=== PATIENT | female | born 1955 | race African-American/Black ===

== ENCOUNTER 2017-05-06 14:39 | Inpatient (IN) | payer OTHER, MEDICAID, MEDICARE ==
--- NOTE | 2017-05-06 14:48 | ED Physician Chart ---
Chief Complaint/HPI - Patient Information Date Seen:: 05/06/17 Time Seen:: 14:45 Chief Complaint:: PAIN UNDER THE LEFT BREAST SINCE THIS AM History of Present Illness:: The patient is a poor historian. [facility] personnel who accompanied her stated that she began complaining of pain under her left breast this a.m. The pain is nonradiating and is worse with inspiration and cough.. No relieving factors. The patient is unable to score the severity of her pain from 0-10. She denies any difficulty breathing, nausea, vomiting, fever or chills. The patient also complained of upper abdominal pain. Paper work with the patient notes she has HTN, FAILURE TO THRIVE and SCHIZOPHRENIA. Allergies:: Allergies Allergy/AdvReac Type Severity Reaction Status Date / Time clozapine [From Clozaril] AdvReac Verified 05/06/17 14:42 haloperidol [From Haldol] AdvReac Verified 05/06/17 14:42 Review:: Nurse's Note Reviewed, Transfer documents Reviewed Review of Systems - Review of Systems General/Constitutional: No fever, No chills, Weakness, Other (THE PT IS AN UNRELIABLE SOURCE OF INFORMATION.) Cardio Vascular: Chest pain Pulmonary: No SOB GI: No nausea, No vomiting, No diarrhea, Pain Past Medical History - Past Medical History Past Medical History: HTN, Dementia Social History: Care Facility Family Medical History - Family Member Mother Hx Family Diabetes: Yes Physical Exam - Physical Examination General/Constitutional: Awake Other Gen/Cons comments:: OBESE AND NON-AMBULATORY. PT IS COMPLAINING OF PAIN IN THE AREA UNDER HER LT BREAST. PT UNABLE TO RATE SEVERITY OF PAIN. DENIED RADIATION. Head: Atraumatic Eyes: Lids, conjuctiva normal, PERRL Other Eyes comments:: UNCOOPERATIVE WITH THE EOM exam. Skin: No rash, No skin lesions, No lymphadenopathy (LARGE TONGUE. DRY ORAL MUCOSA. POOR DENTAL HYGIENE.) Neck: No JVD, No mass Other Neck comments:: THICK NECK. STIFF NECK. Other Respiratory comments:: PT WITH SCATTERED RONCHI AND WHEEZING. NO RALES. Other Cardio Vascular comments:: HEART TONES WERE DISTANT. HAS TACHYCARDIA IN THE 110 RANGE. NO MURMURS OR GALLOPS. Other GI comments:: THE ABDOMEN IS MODERATELY DISTENDED. BOWEL SOUNDS ARE PRESENT. SOFT AND WITHOUT TENDERNESS. NO PALPABLE MASSES, LIVER OR SPLEEN. RECTAL EXAM WAS DEFERRED AT MY DISCRETION. : No CVA tenderness Other Extremities comments:: PT WITH WEAK GRASPS IN BOTH UPPER EXTREMITIES. ABLE TO MOVE BOTH LEGS. MILD PRE-TIBIAL EDEMA. Other Neuro/Psych comments:: PT IS DISORIENTED AND POOR HISTORIAN. CONFUSED. Labs/Radiology/EKG Results - Lab Results Results: Single view PA portable chest x-ray: Borderline cardiomegaly. No CHF. No areas of pulmonary consolidation. No mediastinal widening. calcifications in the aortic arch. No pneumothorax. IMPRESSION: No acute cardiopulmonary findings. Laboratory Tests 05/06/17 05/06/17 05/06/17 14:40 14:40 14:40 WBC 10.1 RBC 3.64 L Hgb 11.4 L Hct 34.4 L MCV 94.5 MCH 31.2 H MCHC Differential 33.0 RDW 12.5 Plt Count 217 MPV 8.0 Neutrophils % 79.8 Lymphocytes % 10.0 L Monocytes % 8.5 Eosinophils % 1.4 Basophils % 0.3 Sodium 129 L Potassium 3.9 Chloride 99 Carbon Dioxide 25.2 Anion Gap 8.7 BUN 15 Creatinine 0.7 Est GFR ( Amer) > 60.0 Est GFR (Non-Af Amer) > 60.0 BUN/Creatinine Ratio 21.4 Glucose 107 H Calcium 9.6 Total Bilirubin 0.8 AST 22 ALT 28 Alkaline Phosphatase 74 Troponin I 0.01 Total Protein 7.0 Albumin 4.0 Globulin 3.0 Albumin/Globulin Ratio 1.3 Amylase 20 L Lipase 6 L The CBC shows no leukocytosis and a mild anemia. Chemistries show mild hyponatremia with a normal potassium level. Lipase and amylase are both within normal parameters. The troponin is within the normal range. Liver function studies are all within normal limits. Renal function is normal. CT SCAN OF THE ABDOMEN WAS OBTAINED BECAUSE ONE OF THE EMT'S SAID THE PATIENT WAS HAVING ABD PAIN. THE SCAN SHOWED COPIOUS STOOLS. MILD ILEUS. THERE WAS A TUBULAR STRUCTURE IN THE RLQ. THE APPENDIX WAS NOT VISUALIZED. - EKG Interpretations EKG Time:: 14:53 Rate & Rhythm: sinus tachycardia at rate of 105. No ectopy. [place]: axis is normal Intervals: the DC interval was normal. QRS duration normal. QT interval normal. Comments:: IMPRESSION: Abnormal EKG. Assessment - Assessment General Assessment: CASE SUMMARY: This 61 year old female was sent from [facility] for evaluation of failure to thrive and and pain in the region of the left breast. The EKG showed a Q-wave in aVF and minimal ST elevation in the inferior leads. The CXR showed boarder line cardiomegaly with no CHF and no areas of pulmonary consolidation. The CT scan of the abdomen and pelvis showed copious stools. Lab studies were unremarkable. On return from the CT scanner the pt began retching and vomiting. This was addressed with IV zofran. Her chest pain was addressed with po ASA, and sub lingual NTG. When there was no improvment with NTG, the pt was treated with IV Morphine which helped with the pain but seemed to worsen the patients vomiting. The case was discussed with Dr. Blackman and will be admitted to a [facility] bed for further evaluation and Treatment MDM DDX for Acute CHEST PAIN: NOT Pneumonia based on CXR. NOT pneumothorax based on CXR. NOT Aortic disection based on history and exam and no mediastinal widening. ED Septic Shock - . Is Septic Shock (SBP<90, OR Lactate>4 mmol\L) present?: No Reassessment (Disposition) - Reassessment Reassessment Condition:: Improved - Diagnosis Diagnosis:: ACUTE CHEST PAIN - Patient Disposition Discharge/Transfer:: Acute Care w/in this hosp ED Discharge Plan - Patient Disposition Admit/Discharge/Transfer: Acute Care w/in this hosp Condition at Disposition: Improved
[2017-05-06 15:23] LABS: % BASOPHILS 0.3 % (0.0-2.0); % EOSINOPHILS 1.4 % (0.0-5.0); % MONOCYTES 8.5 % (2.0-10.0); % NEUTROPHILS 79.8 % (40.0-80.0); HEMATOCRIT 34.4 % (35.0-45.0); HEMOGLOBIN 11.4 gm/dL (11.7-15.5); MEAN CELL VOLUME 94.5 fl (81-100); MEAN CORPUSCULAR HEMOGLOBIN 31.2 pg (27.0-31.0); NEUTROPHILE ABSOLUTE 8.1 Th/cmm (1.8-8.0); PLATELET COUNT 217 Th/cmm (150-400); RED BLOOD COUNT 3.64 Mil/cmm (3.80-5.10); RED CELL DISTRIBUTION WIDTH 12.5 % (11.5-20.0); WHITE BLOOD COUNT 10.1 Th/cmm (4.8-10.8)
[2017-05-06 15:38] LABS: ALB/GLOB RATIO 1.3 (1.0-1.8); ALKALINE PHOSPHATASE 74 U/L (34-104); AMYLASE SERUM 20 U/L (29-103); ANION GAP 8.7 (7.0-16.0); BILIRUBIN,TOTAL 0.8 mg/dL (0.3-1.0); BUN - UREA NITROGEN 15 mg/dL (7-25); BUN/CREATININE RATIO 21.4; CALCIUM SERUM 9.6 mg/dL (8.6-10.3); CARBON DIOXIDE 25.2 mEq/L (21.0-31.0); CHLORIDE 99 mEq/L (98-107); CREATININE - SERUM 0.7 mg/dL (0.6-1.2); GLUCOSE 107 mg/dL (70-105); LIPASE 6 U/L (11-82); POTASSIUM SERUM 3.9 mEq/L (3.5-5.1); SGOT 22 U/L (13-39); SGPT/ALT 28 U/L (7-52); SODIUM SERUM 129 mEq/L (136-145)
[2017-05-06] MEDS ORDERED: Aspirin 81mg Chewable Tab PO ONE (16:08)
[2017-05-06] MEDS ORDERED: Aspirin 81mg Chewable Tab ONE (16:14)
[2017-05-06 17:10] LABS: URINE BILIRUBIN NEGATIVE (NEGATIVE); URINE BLOOD NEGATIVE (NEGATIVE); URINE COLOR YELLOW; URINE GLUCOSE (UA) NEGATIVE (NEGATIVE); URINE KETONE TRACE mg/dL (NEGATIVE); URINE PROTEIN NEGATIVE (NEGATIVE); URINE UROBILINOGEN 0.2 E.U./dL (0.2 - 1.0)
[2017-05-06 17:11] LABS: URINE BACTERIA OCCASIONAL /hpf (NONE SEEN); URINE EPITHELIAL CELLS RARE /lpf (FEW); URINE RBC NONE SEEN /hpf (0-5); URINE WBC 0-2 /hpf (0-5)
[2017-05-06] MEDS ORDERED: Morphine Sulfate 4 mg/mL 1mL Syr IVP ONE (17:43)
[2017-05-06] MEDS ORDERED: Maalox 30 mL Cup PO PRN (18:36)
[2017-05-06] MEDS ORDERED: guaiFENesin 200 MG/10 ML UDC PO PRN (18:36)
[2017-05-06] MEDS ORDERED: Morphine Sulfate 2 mg/mL 1mL Syr IVP PRN (18:36)
[2017-05-06] MEDS: D5-0.9%NS 1,000 ML IV SCH (22:04)
[2017-05-06 23:02] LABS: TROP I 0.01 ng/mL (0.01-0.05)
[2017-05-07 02:10] VITALS: BP 121/71
[2017-05-07 06:03] LABS: % EOSINOPHILS 1.6 % (0.0-5.0); % LYMPHOCYTES 14.5 % (20.0-50.0); % MONOCYTES 9.5 % (2.0-10.0); % NEUTROPHILS 74.4 % (40.0-80.0); HEMOGLOBIN 10.6 gm/dL (11.7-15.5); MEAN CORPUSCULAR HEMOGLOBIN 32.2 pg (27.0-31.0); MEAN CORPUSCULAR HGB CONC 34.2 pg (28.0-36.0); MEAN PLATELET VOLUME 7.5 fl; NEUTROPHILE ABSOLUTE 6.1 Th/cmm (1.8-8.0); PLATELET COUNT 209 Th/cmm (150-400); RED CELL DISTRIBUTION WIDTH 12.3 % (11.5-20.0); WHITE BLOOD COUNT 8.2 Th/cmm (4.8-10.8)
[2017-05-07 06:21] LABS: ALB/GLOB RATIO 1.3 (1.0-1.8); ALKALINE PHOSPHATASE 63 U/L (34-104); BILIRUBIN,TOTAL 0.7 mg/dL (0.3-1.0); BUN - UREA NITROGEN 13 mg/dL (7-25); BUN/CREATININE RATIO 18.6; CARBON DIOXIDE 26.8 mEq/L (21.0-31.0); CHLORIDE 105 mEq/L (98-107); CREATININE - SERUM 0.7 mg/dL (0.6-1.2); GLUCOSE 80 mg/dL (70-105); POTASSIUM SERUM 3.8 mEq/L (3.5-5.1); SGOT 20 U/L (13-39); SGPT/ALT 25 U/L (7-52); SODIUM SERUM 134 mEq/L (136-145)
[2017-05-07 06:54] LABS: TSH 1.24 uIU/ml (0.34-5.60)
[2017-05-07] MEDS: Albuterol Nebulizer 2.5mg/3mL HHN PRN (07:53)
[2017-05-07] MEDS: Ipratropium Neb 0.5 mg/2.5 mL UD IH PRN (07:53)
[2017-05-07] MEDS: Pantoprazole 40 mg EC Tab PO SCH ×2 (09:32→16:44)
--- NOTE | 2017-05-07 10:50 | Diagnostic Imaging Report ---
CHEST X-RAY: AP view INDICATION: Pain under the left breast COMPARISON: None FINDINGS: Chronic changes are seen with no focal consolidation or effusions. Heart size is at the upper limits of normal. Degenerative changes of the spine are noted. IMPRESSION: Chronic lung changes with no focal consolidation identified. No evidence of pneumothorax.
--- NOTE | 2017-05-07 10:51 | Diagnostic Imaging Report ---
CHEST X-RAY: AP view INDICATION: Chest pain COMPARISON: 05/06/2017 FINDINGS: Mild increased interstitial lung markings are seen suggestive of chronic changes. No focal consolidation pleural effusions. Heart is at the upper limits of normal in size. Osseous structures are intact. IMPRESSION: Mild increased interstitial lung markings suggestive of chronic changes. No focal consolidation identified. Heart is upper limits of normal in size.
--- NOTE | 2017-05-07 11:01 | Diagnostic Imaging Report ---
CT abdomen and pelvis without intravenous contrast Indication: Pain under left breast Comparison: None, Technique: Axial images were obtained from the lung bases to the bilateral proximal femurs without IV contrast. Coronal reconstructions were made. total DLP: 690, CTDI15.9 FINDINGS: Hypoventilatory atelectatic changes of the lung bases are noted. No focal abnormality seen along the visualized left abdominal wall. Assessment of the solid organs is limited due to lack of IV contrast. Mildly prominent liver is noted. No evidence of focal hepatic, splenic, or pancreatic lesions. No focal acute lesions. No evidence of hydronephrosis or focal renal lesions. Minimal nonspecific bilateral perinephric inflammatory changes are noted. Copious amount of stool is seen and gas-filled loops of bowel. There is a tubular structure of the right lower quadrant which probably represents the terminal ileum. The appendix is not well-visualized. No evidence of free fluid or free air. Minimal atherosclerosis is noted. The osseous structures demonstrate no acute abnormalities. Degenerative changes spine are noted. There is 2 mm anterolisthesis of L4 on L5 likely due to facet arthropathy. IMPRESSION: No focal abnormalities visualized along the left anterior abdominal wall. Please correlate clinically given patient's clinical history. Tubular structure of the right lower quadrant probably representing the terminal ileum. The Appendix is not well-visualized. Please correlate with clinical findings. If there is concern for appendicitis short-term follow up CT with IV and oral contrast may be obtained for further assessment Copious stool and gas-filled loops of bowel possibly due to a mild ileus. Mildly prominent liver. 2 mm anterolisthesis of L4 on L5 likely due to facet arthropathy.
--- NOTE | 2017-05-07 13:10 | Internal Medicine Prog Note ---
Internal Medicine Subjective - Subjective Service Date: 05/07/17 ([id number]) Internal Medicine Objective - Results Result Diagrams: 05/07/17 05:30 05/07/17 05:30 Recent Labs: Laboratory Last Values WBC 8.2 Th/cmm (4.8-10.8) 05/07/17 05:30 RBC 3.30 Mil/cmm (3.80-5.10) L 05/07/17 05:30 Hgb 10.6 gm/dL (11.7-15.5) L 05/07/17 05:30 Hct 31.0 % (35.0-45.0) L 05/07/17 05:30 MCV 94.0 fl (81-100) 05/07/17 05:30 MCH 32.2 pg (27.0-31.0) H 05/07/17 05:30 MCHC Differential 34.2 pg (28.0-36.0) 05/07/17 05:30 RDW 12.3 % (11.5-20.0) 05/07/17 05:30 Plt Count 209 Th/cmm (150-400) 05/07/17 05:30 MPV 7.5 fl 05/07/17 05:30 Neutrophils % 74.4 % (40.0-80.0) 05/07/17 05:30 Lymphocytes % 14.5 % (20.0-50.0) L 05/07/17 05:30 Monocytes % 9.5 % (2.0-10.0) 05/07/17 05:30 Eosinophils % 1.6 % (0.0-5.0) 05/07/17 05:30 Basophils % 0.0 % (0.0-2.0) 05/07/17 05:30 Sodium 134 mEq/L (136-145) L 05/07/17 05:30 Potassium 3.8 mEq/L (3.5-5.1) 05/07/17 05:30 Chloride 105 mEq/L (98-107) 05/07/17 05:30 Carbon Dioxide 26.8 mEq/L (21.0-31.0) 05/07/17 05:30 Anion Gap 6.0 (7.0-16.0) L 05/07/17 05:30 BUN 13 mg/dL (7-25) 05/07/17 05:30 Creatinine 0.7 mg/dL (0.6-1.2) 05/07/17 05:30 Est GFR ( Amer) > 60.0 ml/min (>90) 05/07/17 05:30 Est GFR (Non-Af Amer) > 60.0 ml/min 05/07/17 05:30 BUN/Creatinine Ratio 18.6 05/07/17 05:30 Glucose 80 mg/dL (70-105) 05/07/17 05:30 Calcium 9.0 mg/dL (8.6-10.3) 05/07/17 05:30 Total Bilirubin 0.7 mg/dL (0.3-1.0) 05/07/17 05:30 AST 20 U/L (13-39) 05/07/17 05:30 ALT 25 U/L (7-52) 05/07/17 05:30 Alkaline Phosphatase 63 U/L (34-104) 05/07/17 05:30 Ammonia 55 umol/L (16-53) H 05/07/17 05:30 Troponin I 0.01 ng/mL (0.01-0.05) 05/06/17 22:35 B-Natriuretic Peptide 23.9 pg/mL (5.0-100.0) 05/07/17 05:30 Total Protein 6.1 gm/dL (6.0-8.3) 05/07/17 05:30 Albumin 3.4 gm/dL (3.7-5.3) L 05/07/17 05:30 Globulin 2.7 gm/dL 05/07/17 05:30 Albumin/Globulin Ratio 1.3 (1.0-1.8) 05/07/17 05:30 Amylase 20 U/L (29-103) L 05/06/17 14:40 Lipase 6 U/L (11-82) L 05/06/17 14:40 TSH 1.24 uIU/ml (0.34-5.60) 05/07/17 05:30 Urine Source RANDOM 05/06/17 16:20 Urine Color YELLOW 05/06/17 16:20 Urine Clarity CLEAR (CLEAR) 05/06/17 16:20 Urine pH 7.0 05/06/17 16:20 Ur Specific [place] 1.015 (1.005-1.030) 05/06/17 16:20 Urine Protein NEGATIVE mg/dL (NEGATIVE) 05/06/17 16:20 Urine Glucose (UA) NEGATIVE mg/dL (NEGATIVE) 05/06/17 16:20 Urine Ketones TRACE mg/dL (NEGATIVE) 05/06/17 16:20 Urine Blood NEGATIVE (NEGATIVE) 05/06/17 16:20 Urine Nitrate NEGATIVE (NEGATIVE) 05/06/17 16:20 Urine Bilirubin NEGATIVE (NEGATIVE) 05/06/17 16:20 Urine Urobilinogen 0.2 E.U./dL (0.2 - 1.0) 05/06/17 16:20 Ur Leukocyte Esterase NEGATIVE (NEGATIVE) 05/06/17 16:20 Urine RBC NONE SEEN /hpf (0-5) 05/06/17 16:20 Urine WBC 0-2 /hpf (0-5) 05/06/17 16:20 Ur Epithelial Cells RARE /lpf (FEW) 05/06/17 16:20 Urine Bacteria OCCASIONAL /hpf (NONE SEEN) 05/06/17 16:20 Urine Mucus FEW /lpf (FEW) 05/06/17 16:20 - Physical Exam Vitals and I&O: Vital Signs Temp 98 F 05/07/17 08:00 Pulse 96 05/07/17 09:33 Resp 19 05/07/17 08:00 BP 151/68 05/07/17 09:33 Pulse Ox 98 05/07/17 08:00 Intake & Output 05/06/17 05/07/17 05/07/17 18:59 06:59 18:59 Intake Total 240 Balance 240 Weight (lbs) 217 lb 217 lb Intake: Oral 240 Other: # Voids 2 Active Medications: Current Medications Acetaminophen (Tylenol) 650 mg PO Q4H PRN PRN Reason: Pain Or Fever above 101 Stop: 07/05/17 18:35 Al Hydrox/Mg Hydrox/Simethicone (Maalox) 30 ml PO Q6H PRN PRN Reason: Dyspepsia Stop: 07/05/17 18:35 Albuterol Sulfate (Albuterol 2.5mg/3ml Neb Ud) 2.5 mg HHN Q2HRT PRN PRN Reason: Shortness of Breath or Wheeze Stop: 07/05/17 18:35 Last Admin: 05/07/17 07:53 Dose: 2.5 mg Amlodipine Besylate (Norvasc) 5 mg PO DAILY [facility] Stop: 07/06/17 08:59 Last Admin: 05/07/17 09:32 Dose: 5 mg Aspirin (Ecotrin) 81 mg PO DAILY [facility] Stop: 07/06/17 08:59 Last Admin: 05/07/17 09:32 Dose: 81 mg Clonidine HCl (Catapres) 0.1 mg PO Q6H PRN PRN Reason: SBP GREATER THAN 160 Stop: 07/05/17 18:35 Guaifenesin (Robitussin) 200 mg PO Q4HR PRN PRN Reason: Cough or Congestion Stop: 07/05/17 18:35 Hydroxyzine Pamoate (Vistaril) 50 mg PO Q4H PRN PRN Reason: Anxiety Stop: 07/05/17 22:22 Last Admin: 05/07/17 03:51 Dose: 50 mg Dextrose/Sodium Chloride (D5-0.9%Ns) 1,000 mls @ 80 mls/hr IV .[id number] [facility] Stop: 07/05/17 18:44 Last Admin: 05/06/17 22:04 Dose: 80 mls/hr Ipratropium [place] (Atrovent Neb 0.5mg/2.5ml) 0.5 mg IH Q2HRT PRN PRN Reason: Shortness of Breath or Wheeze Stop: 07/05/17 18:35 Last Admin: 05/07/17 07:53 Dose: 0.5 mg Lorazepam (Ativan) 1 mg PO Q6HR PRN; Protocol PRN Reason: Agitation Stop: 07/06/17 07:55 Losartan Potassium (Cozaar) 100 mg PO DAILY [facility] Stop: 07/06/17 08:59 Last Admin: 05/07/17 09:33 Dose: 100 mg Morphine Sulfate (Morphine) 2 mg IVP Q4H PRN PRN Reason: Pain (Severe) Stop: 07/05/17 18:35 Ondansetron HCl (Zofran) 4 mg IV Q8H PRN PRN Reason: Nausea / Vomiting Stop: 07/05/17 18:35 Pantoprazole Sodium (Protonix) 40 mg PO BID [facility] Stop: 07/06/17 08:59 Last Admin: 05/07/17 09:32 Dose: 40 mg Quetiapine Fumarate (Seroquel) 300 mg PO HS [facility]II PRN Reason: Protocol Stop: 07/06/17 20:59 Quetiapine Fumarate (Seroquel) 50 mg PO DAILY [facility] PRN Reason: Protocol Stop: 07/06/17 08:59 Last Admin: 05/07/17 09:32 Dose: 50 mg Trazodone HCl (Desyrel) 50 mg PO HS MARII PRN Reason: Protocol Stop: 07/06/17 20:59 Zolpidem Tartrate (Ambien) 10 mg PO HS PRN PRN Reason: Insomnia Stop: 07/05/17 18:35 Internal Medicine Assmt/Plan - Assessment Assessment: ABDOMINAL PAIN CHEST PAIN GERD ASHTMA HTN HYPONATREMIA INTRACTABLE NAUSEA/VOMITING
--- NOTE | 2017-05-07 13:53 | History & Physical ---
ADMIT DATE: 05/07/2017 CHIEF COMPLAINT: Nausea, vomiting, abdominal pain and chest pain. HISTORY OF PRESENT ILLNESS: This is a 61-year-old -N[place]alese female with a 1-day history of nausea, vomiting, abdominal pain associated with chest pain. I saw this patient yesterday at [facility] and the patient was noted with intractable nausea and vomiting. For this reason, the patient was sent out to [facility]. PAST MEDICAL HISTORY: Hypertension, asthma and GERD. PAST SURGICAL HISTORY: Bilateral knee surgery. ALLERGIES: CLOZAPINE AND HALOPERIDOL. MEDICATIONS: Protonix, Norvasc, and Seroquel. SOCIAL HISTORY: The patient denies any alcohol, tobacco or illicit drug usage. REVIEW OF SYSTEMS: GENERAL: Complaints of abdominal pain. HEENT: No blurred vision. No neck pain. LUNGS: The patient had asthma. CARDIOVASCULAR: The patient has hypertension. ABDOMEN: Complaints of abdominal pain. GASTROINTESTINAL: Denies increase frequency or dysuria. NEUROLOGIC: No headaches, seizures, syncope. PHYSICAL EXAMINATION: GENERAL: The patient is awake, alert, in no apparent distress. VITAL SIGNS: Temperature 98, heart rate 96, blood pressure ____, respirations 19, O2 sat 98%. HEENT: Head; normocephalic, atraumatic. NECK: Supple. No mass. LUNGS: Clear bilaterally. HEART: Regular rhythm. ABDOMEN: Noted with distention. Nontender. LABORATORY DATA: WBC 8.2, H and H 10.6 and 31.0, platelet of 209. Sodium 134, potassium 3.8, chloride 105, carbon dioxide 26.8. Ammonia 55. The patient had a urinalysis done and it was negative for any UTI. The patient had a CT of the abdomen and pelvis done and the impression is no focal abnormalities visualized along the left anterior abdominal wall, tubular structure of right lower quadrant probably representing terminal ileum. Appendix is not well visualized. Please correlate with clinical findings. ASSESSMENT: Abdominal pain, intractable nausea, vomiting, chest pain, hypertension, asthma, and gastroesophageal reflux disease. PLAN: The patient to be admitted to the telemetry unit. The patient to have a GI consultation, also Dr. Bennett on the case. We will monitor patient's troponin level. We will continue to monitor this patient. JOB# [id number]
[2017-05-07] MEDS ORDERED: VTE Chemical Prophylaxis Screen/Admission MC PRN (15:00)
[2017-05-07] MEDS ORDERED: Magnesium Citrate 1.75 GM/300 mL Bottle PO ONE (15:17)
--- NOTE | 2017-05-07 22:54 | Consultation ---
DATE OF CONSULTATION: 05/07/2017 HISTORY OF PRESENT ILLNESS: A 61-year-old female coming in with the nursing personnel complaining of pain under the left breast. The patient is stating that she is coming from [facility]. She is demanding to leave the hospital. The patient is fairly well oriented feeling "okay." Staff noting she has been exhibiting some odd behaviors. Per staff, the patient has been intrusive, yelling, screaming, needing emergency orders of medications, ____ anxious, restless. PAST PSYCHIATRIC HISTORY: It seems she has history of schizophrenia. FAMILY HISTORY: Noncontributory. SOCIAL HISTORY: Unclear if she knows she has a place to live, but this has not been confirmed. The patient denies any noted drugs, alcohol or tobacco. MENTAL STATUS EXAMINATION: Stated age. Fair eye contact. Speech rambling. Mood "okay." Affect constricted. Thought processes are fragmented, no SI, no HI. She seems to be paranoid and suspicious, poor insight, poor judgment. PROVISIONAL DIAGNOSIS: Schizophrenia, anxiety, unspecified. MEDICAL: Please see full H and P. PLAN: We will continue to monitor, adjust medications, start p.r.n. Ativan. Continue to adjust Seroquel dosing. [facility]# [id number]
[2017-05-08 05:55] LABS: % BASOPHILS 0.5 % (0.0-2.0); % EOSINOPHILS 4.9 % (0.0-5.0); % MONOCYTES 10.1 % (2.0-10.0); % NEUTROPHILS 57.5 % (40.0-80.0); HEMATOCRIT 30.8 % (35.0-45.0); HEMOGLOBIN 10.6 gm/dL (11.7-15.5); MEAN CELL VOLUME 94.3 fl (81-100); MEAN CORPUSCULAR HEMOGLOBIN 32.5 pg (27.0-31.0); MEAN CORPUSCULAR HGB CONC 34.4 pg (28.0-36.0); NEUTROPHILE ABSOLUTE 3.4 Th/cmm (1.8-8.0); PLATELET COUNT 203 Th/cmm (150-400); RED BLOOD COUNT 3.26 Mil/cmm (3.80-5.10); RED CELL DISTRIBUTION WIDTH 12.9 % (11.5-20.0)
[2017-05-08 06:05] LABS: INR 1.06 (0.5-1.4); WHITE BLOOD COUNT 5.9 Th/cmm (4.8-10.8)
[2017-05-08 06:11] LABS: ALB/GLOB RATIO 1.2 (1.0-1.8); ALKALINE PHOSPHATASE 58 U/L (34-104); ANION GAP 5.9 (7.0-16.0); BILIRUBIN,TOTAL 0.6 mg/dL (0.3-1.0); BUN - UREA NITROGEN 13 mg/dL (7-25); BUN/CREATININE RATIO 18.6; CALCIUM SERUM 8.8 mg/dL (8.6-10.3); CARBON DIOXIDE 30.9 mEq/L (21.0-31.0); CHLORIDE 104 mEq/L (98-107); CREATININE - SERUM 0.7 mg/dL (0.6-1.2); GLUCOSE 83 mg/dL (70-105); LIPASE 14 U/L (11-82); POTASSIUM SERUM 3.8 mEq/L (3.5-5.1); SGOT 16 U/L (13-39); SGPT/ALT 23 U/L (7-52); SODIUM SERUM 137 mEq/L (136-145)
--- NOTE | 2017-05-08 06:19 | Consultation ---
DATE OF CONSULTATION: 05/07/2017 HISTORY OF PRESENT ILLNESS: This 61-year-old was seen and examined. The patient was admitted through Emergency Room. She was transferred here from the [facility]. She complained of left lower chest pains. The patient is not a very good historian. She has history of hypertension and psych problems. She was evaluated in the Emergency Room. EKG was done, which showed sinus rhythm, possible Q waves in 3 and aVF with ____ possibility of old inferior wall injury. LABORATORY DATA: First troponin was done ____ normal so far. TSH was 1.24. Ammonia level was 55. BNP was 3.9. WBC count was 8.2, hemoglobin 10.6, hematocrit 31, platelet count was 209. Sodium 134, potassium 3.8, chloride 105, CO2 26.8, BUN 13, creatinine 0.7, glucose was 80. Liver function test unremarkable. Chest x-ray report ____ was not available to me. PAST MEDICAL HISTORY: Usual childhood diseases. No history of rheumatic fever or scarlet fever. SOCIAL HISTORY: The patient is not a smoker and not a drinker. REVIEW OF SYSTEMS: Not much available from the patient. PHYSICAL EXAMINATION: VITAL SIGNS: Heart rate was 80. Blood pressure was 142/70. SKIN: Normal. HEAD: Normocephalic. EYES: Conjunctivae were pink. There is no icterus in the eyes. Pupils reacting to light. NECK: There was no increased jugular venous distention, no thyromegaly, no lymphadenopathy. Carotids equal on both sides. CHEST: Bilaterally symmetrical and moved well with respirations. Respiratory movements equal both sides. Trachea is central. There is note to percussion. Breath sounds, few scattered rales. CARDIOVASCULAR SYSTEM: PMI not well localized and no positional thrill. No parasternal heave. S1 normal, S2 physiologic. There was no S3, no rub. ABDOMEN: Soft, no tenderness, no rigidity, no guarding and no organomegaly. Bowel sounds normal. CENTRAL NERVOUS SYSTEM: Grossly nonfocal. Reflexes normal. Plantars are ____. EXTREMITIES: No calf tenderness. Peripheral pulses slightly diminished. IMPRESSION: Chest pains, rule out myocardial infarction, possibility of atherosclerotic heart disease with the EKG showing possibility of old inferior wall injury, hypertension, psych problems. PLAN: To continue cardiac monitoring to get serial EKG, serial enzymes, echocardiogram in order to evaluate left ventricular function and valvular structure and also to get lipid profile. In the meantime, add baby aspirin 81 mg, Coreg 3.125 b.i.d., and Lipitor and antihypertensive medication that she is getting losartan. Further recommendation will be made depending on the results of the tests available and Dr. Obed Banuelos will be following the patient now. JOB# [id number]
[2017-05-08 06:39] LABS: CHOLESTEROL 131 mg/dL (<200); TRIGLYCERIDES 58 mg/dL (<150)
[2017-05-08] MEDS: Ipratropium Neb 0.5 mg/2.5 mL UD IH PRN ×2 (07:14→21:00)
[2017-05-08] MEDS: Albuterol Nebulizer 2.5mg/3mL HHN PRN ×2 (07:14→21:00)
--- NOTE | 2017-05-08 07:40 | Consultation ---
DATE OF CONSULTATION: 05/07/2017 REASON FOR CONSULTATION: Abdominal pain, vomiting. HISTORY OF PRESENT ILLNESS: This consult was obtained through the courtesy of Dr. Blackman for this 61-year-old with a history of hypertension, possible psych problem versus early dementia, presenting from a prison because of abdominal pain, persistent nausea and vomiting. The patient was evaluated in the hospital, had a CAT scan which showed copious amount of stool and fluid in the colon. GI consult was called in for further evaluation. The patient lost weight gradually, but she cannot remember how much. She has nausea and vomiting. No bleeding, no diarrhea or constipation. She has abdominal pain, mostly on the left side. PAST MEDICAL HISTORY: Hypertension, dementia, psych problem. PAST SURGICAL HISTORY: She has had knee replacement on the left side. She had oophorectomy, she had hysterectomy. SOCIAL HISTORY: Denies smoking, alcohol, or drugs. FAMILY HISTORY: Mother had colon cancer and her last colonoscopy was about 5 years ago. ALLERGIES: CLOZAPINE and HALOPERIDOL. MEDICATIONS: Tylenol, Simethicone, albuterol, amlodipine, aspirin, clonidine, Robitussin, heparin, ____, ipratropium, Ativan, Cozaar, morphine, Zofran, Protonix, Seroquel, Desyrel, Ambien. REVIEW OF SYSTEMS: As per history of present illness, there is some weight loss, nausea, vomiting, no diarrhea or constipation. No bleeding, no chest pain. PHYSICAL EXAMINATION: GENERAL: The patient is awake, oriented to self and place. VITAL SIGNS: Blood pressure is 151/68, heart rate 96, respiratory rate 19, temperature is 98.0. HEAD AND NECK: Pupils reactive to light. Extraocular muscles could not be tested. Oral cavity, no lesion. NECK: Supple, no jugular venous distention, no carotid bruit or lymph node. CHEST: Good respiratory movements. LUNGS: Clear to auscultation. CARDIOVASCULAR: Regular rate and rhythm. No murmur or gallop. ABDOMEN: Soft, positive bowel sounds. There is mild epigastric and left-sided tenderness. EXTREMITIES: No edema. CENTRAL NERVOUS SYSTEM: Nonfocal. LABORATORY DATA: H and H of 10.6 and 31.0, platelets of 209. Liver enzymes were normal. Ammonia is 55, albumin is 3.4. X-ray showed copious amount of stools and liquid in the colon. IMPRESSION: A 61-year-old presenting with abdominal pain, nausea, vomiting, ileus pattern, and also abnormal ammonia level. ASSESSMENT AND PLAN: Abdominal pain, nausea, vomiting ____ peptic ulcer disease versus upper gastrointestinal malignancy versus erosive esophagitis. Other differential would be cholecystitis, choledocholithiasis, pancreatitis or ileus. RECOMMENDATIONS: 1. Abdominal ultrasound. 2. EGD in the morning. 3. Recheck labs in the morning. ____ ileus on dilated loops of colon, give the patient ____ magnesium citrate. I will check a KUB in a day or two depending on how much bowel movement she is going to have and how does she feel ____. No history of liver disease. We will recheck in the morning and then might consider Xifaxan or workup for ____ disease. Other medical problems such as hypertension, possible dementia, etc., as per Dr. Blackman. Thank you, Dr. Blackman, for allowing me to participate in the care of the patient. If you have any further questions, please let me know. JOB# [id number]
[2017-05-08 08:38] LABS: VALPROIC ACID 48.9 ug/mL (50.0-100.0)
--- NOTE | 2017-05-08 09:05 | Diagnostic Imaging Report ---
Abdominal ultrasound HISTORY: Pain The exam is technically limited due to lack of patient cooperation and difficulty in tolerance. In addition, images are limited due to patient's size, body habitus, bowel gas. The liver appears increased in size. There is a somewhat heterogeneous parenchyma. No focal lesions. Findings should be correlated with liver function tests. The gallbladder appears normal. No calculi are seen. No biliary dilatation. The pancreas cannot be seen due to bowel gas. The exam of the right kidney demonstrates a 1.5 cm sonolucent lesion near the renal pelvis consistent with a cyst. Left kidney is unremarkable. No hydronephrosis. No other retroperitoneal or intra-abdominal abnormalities. IMPRESSION: 1. Limited exam due to patient size, body habitus, bowel gas, and difficulty in patient cooperation. 2. Hepatomegaly with somewhat heterogeneous hepatic parenchyma. No focal lesions. The findings should be correlated with liver function tests 3. Findings consistent with a right renal cyst
[2017-05-08] MEDS: Aspirin 81mg Chewable Tab PO SCH (10:38)
[2017-05-08] MEDS: Atorvastatin Calcium 10 MG TAB PO SCH (10:38)
[2017-05-08] MEDS: Pantoprazole 40 mg EC Tab PO SCH ×2 (10:40→17:35)
--- NOTE | 2017-05-08 11:47 | Diagnostic Imaging Report ---
Abdominal ultrasound HISTORY: Nausea The exam is limited due to patient's size, body habitus, and difficulty in patient positioning. The liver exhibits somewhat heterogeneous parenchymal appearance. No focal lesions are seen. Significance should be correlated with liver function tests. No biliary dilatation. Pancreas cannot be well seen due to bowel gas. The right kidney is normal in size. A 1.5 cm sonolucent lesion is noted in the midportion of the kidney suggesting a cyst. No hydronephrosis. The left kidney is normal in size. The spleen is normal in size. No other retroperitoneal or intra-abdominal abnormalities. IMPRESSION: 1. Somewhat limited exam due to patient's size, body habitus, and difficulty in positioning 2. Somewhat heterogeneous hepatic parenchyma. The significance should be correlated with liver function tests. 3. Findings suggesting a small right renal cyst
--- NOTE | 2017-05-08 12:35 | Internal Medicine Prog Note ---
Internal Medicine Subjective - Subjective Service Date: 05/08/17 Patient seen and examined:: with staff Patient is:: awake, in bed Internal Medicine Objective - Results Result Diagrams: 05/08/17 05:05 05/08/17 05:05 Recent Labs: Laboratory Last Values WBC 5.9 Th/cmm (4.8-10.8) D 05/08/17 05:05 RBC 3.26 Mil/cmm (3.80-5.10) L 05/08/17 05:05 Hgb 10.6 gm/dL (11.7-15.5) L 05/08/17 05:05 Hct 30.8 % (35.0-45.0) L 05/08/17 05:05 MCV 94.3 fl (81-100) 05/08/17 05:05 MCH 32.5 pg (27.0-31.0) H 05/08/17 05:05 MCHC Differential 34.4 pg (28.0-36.0) 05/08/17 05:05 RDW 12.9 % (11.5-20.0) 05/08/17 05:05 Plt Count 203 Th/cmm (150-400) 05/08/17 05:05 MPV 8.0 fl 05/08/17 05:05 Neutrophils % 57.5 % (40.0-80.0) 05/08/17 05:05 Lymphocytes % 27.0 % (20.0-50.0) 05/08/17 05:05 Monocytes % 10.1 % (2.0-10.0) H 05/08/17 05:05 Eosinophils % 4.9 % (0.0-5.0) 05/08/17 05:05 Basophils % 0.5 % (0.0-2.0) 05/08/17 05:05 PT 11.0 SECONDS (9.5-11.5) 05/08/17 05:05 INR 1.06 (0.5-1.4) 05/08/17 05:05 Sodium 137 mEq/L (136-145) 05/08/17 05:05 Potassium 3.8 mEq/L (3.5-5.1) 05/08/17 05:05 Chloride 104 mEq/L (98-107) 05/08/17 05:05 Carbon Dioxide 30.9 mEq/L (21.0-31.0) 05/08/17 05:05 Anion Gap 5.9 (7.0-16.0) L 05/08/17 05:05 BUN 13 mg/dL (7-25) 05/08/17 05:05 Creatinine 0.7 mg/dL (0.6-1.2) 05/08/17 05:05 Est GFR ( Amer) > 60.0 ml/min (>90) 05/08/17 05:05 Est GFR (Non-Af Amer) > 60.0 ml/min 05/08/17 05:05 BUN/Creatinine Ratio 18.6 05/08/17 05:05 Glucose 83 mg/dL (70-105) 05/08/17 05:05 Calcium 8.8 mg/dL (8.6-10.3) 05/08/17 05:05 Total Bilirubin 0.6 mg/dL (0.3-1.0) 05/08/17 05:05 AST 16 U/L (13-39) 05/08/17 05:05 ALT 23 U/L (7-52) 05/08/17 05:05 Alkaline Phosphatase 58 U/L (34-104) 05/08/17 05:05 Ammonia 55 umol/L (16-53) H 05/07/17 05:30 Troponin I 0.01 ng/mL (0.01-0.05) 05/06/17 22:35 B-Natriuretic Peptide 23.9 pg/mL (5.0-100.0) 05/07/17 05:30 Total Protein 5.9 gm/dL (6.0-8.3) L 05/08/17 05:05 Albumin 3.2 gm/dL (3.7-5.3) L 05/08/17 05:05 Globulin 2.7 gm/dL 05/08/17 05:05 Albumin/Globulin Ratio 1.2 (1.0-1.8) 05/08/17 05:05 Triglycerides 58 mg/dL (<150) 05/08/17 05:05 Cholesterol 131 mg/dL (<200) 05/08/17 05:05 LDL Cholesterol Direct 72 mg/dL (75-193) L 05/08/17 05:05 HDL Cholesterol 50 mg/dL (23-92) 05/08/17 05:05 Amylase 20 U/L (29-103) L 05/06/17 14:40 Lipase 14 U/L (11-82) 05/08/17 05:05 TSH 2.09 uIU/ml (0.34-5.60) 05/08/17 05:05 Urine Source RANDOM 05/06/17 16:20 Urine Color YELLOW 05/06/17 16:20 Urine Clarity CLEAR (CLEAR) 05/06/17 16:20 Urine pH 7.0 05/06/17 16:20 Ur Specific [place] 1.015 (1.005-1.030) 05/06/17 16:20 Urine Protein NEGATIVE mg/dL (NEGATIVE) 05/06/17 16:20 Urine Glucose (UA) NEGATIVE mg/dL (NEGATIVE) 05/06/17 16:20 Urine Ketones TRACE mg/dL (NEGATIVE) 05/06/17 16:20 Urine Blood NEGATIVE (NEGATIVE) 05/06/17 16:20 Urine Nitrate NEGATIVE (NEGATIVE) 05/06/17 16:20 Urine Bilirubin NEGATIVE (NEGATIVE) 05/06/17 16:20 Urine Urobilinogen 0.2 E.U./dL (0.2 - 1.0) 05/06/17 16:20 Ur Leukocyte Esterase NEGATIVE (NEGATIVE) 05/06/17 16:20 Urine RBC NONE SEEN /hpf (0-5) 05/06/17 16:20 Urine WBC 0-2 /hpf (0-5) 05/06/17 16:20 Ur Epithelial Cells RARE /lpf (FEW) 05/06/17 16:20 Urine Bacteria OCCASIONAL /hpf (NONE SEEN) 05/06/17 16:20 Urine Mucus FEW /lpf (FEW) 05/06/17 16:20 Valproic Acid 48.9 ug/mL (50.0-100.0) L 05/06/17 22:35 - Physical Exam Vitals and I&O: Vital Signs Temp 97.6 F 05/08/17 11:48 Pulse 86 05/08/17 11:48 Resp 20 05/08/17 11:48 BP 141/67 05/08/17 11:48 Pulse Ox 99 05/08/17 11:48 Intake & Output 05/07/17 05/08/17 05/08/17 18:59 06:59 18:59 Intake Total 240 200 Output Total 675 Balance 240 -475 Weight (lbs) 217 lb 216 lb 6.4 oz Intake: Oral 240 200 Output: Urine 675 Other: # Voids 2 Active Medications: Current Medications Acetaminophen (Tylenol) 650 mg PO Q4H PRN PRN Reason: Pain Or Fever above 101 Stop: 07/05/17 18:35 Last Admin: 05/07/17 21:49 Dose: 650 mg Al Hydrox/Mg Hydrox/Simethicone (Maalox) 30 ml PO Q6H PRN PRN Reason: Dyspepsia Stop: 07/05/17 18:35 Albuterol Sulfate (Albuterol 2.5mg/3ml Neb Ud) 2.5 mg HHN Q2HRT PRN PRN Reason: Shortness of Breath or Wheeze Stop: 07/05/17 18:35 Last Admin: 05/08/17 07:14 Dose: 2.5 mg Amlodipine Besylate (Norvasc) 5 mg PO DAILY [facility] Stop: 07/06/17 08:59 Last Admin: 05/08/17 10:37 Dose: Not Given Aspirin (Aspirin Chewable) 81 mg PO DAILY [facility] Stop: 07/07/17 08:59 Last Admin: 05/08/17 10:38 Dose: Not Given Atorvastatin Calcium (Lipitor) 10 mg PO DAILY [facility] PRN Reason: Protocol Stop: 07/07/17 08:59 Last Admin: 05/08/17 10:38 Dose: Not Given Carvedilol (Coreg) 3.125 mg PO BID [facility] Stop: 07/07/17 08:59 Last Admin: 05/08/17 10:38 Dose: Not Given Clonidine HCl (Catapres) 0.1 mg PO Q6H PRN PRN Reason: SBP GREATER THAN 160 Stop: 07/05/17 18:35 Guaifenesin (Robitussin) 200 mg PO Q4HR PRN PRN Reason: Cough or Congestion Stop: 07/05/17 18:35 Heparin Sodium (Porcine) (Heparin) 5,000 units SUBQ Q12HR [facility] Stop: 07/06/17 20:59 Last Admin: 05/08/17 10:39 Dose: Not Given Hydroxyzine Pamoate (Vistaril) 50 mg PO Q4H PRN PRN Reason: Anxiety Stop: 07/05/17 22:22 Last Admin: 05/07/17 03:51 Dose: 50 mg Dextrose/Sodium Chloride (D5-0.9%Ns) 1,000 mls @ 80 mls/hr IV .[id number] [facility] Stop: 07/05/17 18:44 Last Admin: 05/06/17 22:04 Dose: 80 mls/hr Ipratropium [place] (Atrovent Neb 0.5mg/2.5ml) 0.5 mg IH Q2HRT PRN PRN Reason: Shortness of Breath or Wheeze Stop: 07/05/17 18:35 Last Admin: 05/08/17 07:14 Dose: 0.5 mg Lorazepam (Ativan) 1 mg PO Q6HR PRN; Protocol PRN Reason: Agitation Stop: 07/06/17 07:55 Losartan Potassium (Cozaar) 100 mg PO DAILY [facility] Stop: 07/06/17 08:59 Last Admin: 05/08/17 10:39 Dose: Not Given Miscellaneous (Vte Chemical Prophylaxis Screen/ Admission) 1 ea [facility] PRN PRN PRN Reason: PROTOCOL Stop: 07/06/17 14:59 Morphine Sulfate (Morphine) 2 mg IVP Q4H PRN PRN Reason: Pain (Severe) Stop: 07/05/17 18:35 Last Admin: 05/08/17 01:04 Dose: 2 mg Ondansetron HCl (Zofran) 4 mg IV Q8H PRN PRN Reason: Nausea / Vomiting Stop: 07/05/17 18:35 Pantoprazole Sodium (Protonix) 40 mg PO BID [facility] Stop: 07/06/17 08:59 Last Admin: 05/08/17 10:40 Dose: Not Given Quetiapine Fumarate (Seroquel) 300 mg PO HS [facility] PRN Reason: Protocol Stop: 07/06/17 20:59 Last Admin: 05/07/17 21:44 Dose: 300 mg Quetiapine Fumarate (Seroquel) 50 mg PO DAILY [facility] PRN Reason: Protocol Stop: 07/06/17 08:59 Last Admin: 05/08/17 10:40 Dose: Not Given Trazodone HCl (Desyrel) 50 mg PO HS [facility] PRN Reason: Protocol Stop: 07/06/17 20:59 Last Admin: 05/07/17 21:43 Dose: 50 mg Zolpidem Tartrate (Ambien) 10 mg PO HS PRN PRN Reason: Insomnia Stop: 07/05/17 18:35 General: alert HEENT: NC/AT, PERRLA Neck: Supple Lungs: CTAB Cardiovascular: RRR, Normal S1, Normal S2, without murmur Abdomen: distended Extremities: clear Neurological: alert Internal Medicine Assmt/Plan - Assessment Assessment: ABDOMINAL PAIN CHEST PAIN GERD ASHTMA HTN HYPONATREMIA INTRACTABLE NAUSEA/VOMITING - Plan Plan: egd today 2d echo to be done continue tele monitoring ivf for hydration
[2017-05-08] MEDS: D5-0.9%NS 1,000 ML IV SCH (22:31)
--- NOTE | 2017-05-09 00:18 | Operative Report ---
DATE OF SURGERY: 05/08/2017 INPATIENT GASTROINTESTINAL PROCEDURE NAME OF PROCEDURE: EGD with biopsy. REFERRING PHYSICIAN: Dr. Blackman. REASON FOR PROCEDURE: Abdominal pain, nausea, vomiting. CONSENT: Risks, benefits, alternatives, nature, indication, possible outcomes were discussed. Mentioned bleeding, infection, perforation, , disability, cardiopulmonary distress and arrest, missed lesion and cancers, need for surgery. The patient expressed understanding and provided informed consent. PREOPERATIVE DIAGNOSES: Nausea, vomiting, upper abdominal pain. POSTOPERATIVE DIAGNOSIS: Small hiatal hernia. MEDICATIONS: MAC provided by anesthesiologist due to patient has high tolerance. DESCRIPTION OF PROCEDURE: The patient was placed on left side. Upper endoscope was advanced from mouth to second portion of duodenum. Scope brought back in the stomach. Retroflexion fundus, cardia, lesser curvature, hiatal hernia. Scope was straightened and slowly withdrawn through esophagus and removed. COMPLICATIONS: None. FINDINGS: 1.GE junction at 35 cm with a small hiatal hernia; otherwise, normal esophagus. 2.Normal stomach status post biopsy. 3.Normal duodenum, status post biopsy. RECOMMENDATIONS: 1.Follow up on biopsy. 2.Provide the patient proton pump inhibitor. Thank you for allowing me to participate. Please call me if any questions. JOB# [id number]
[2017-05-09 06:09] LABS: FOLIC ACID >20.0 ng/mL (>3.0)
[2017-05-09 06:39] LABS: % BASOPHILS 0.2 % (0.0-2.0); % EOSINOPHILS 5.6 % (0.0-5.0); % LYMPHOCYTES 18.5 % (20.0-50.0); % NEUTROPHILS 66.7 % (40.0-80.0); HEMATOCRIT 31.5 % (35.0-45.0); HEMOGLOBIN 10.8 gm/dL (11.7-15.5); MEAN CELL VOLUME 93.9 fl (81-100); MEAN CORPUSCULAR HEMOGLOBIN 32.1 pg (27.0-31.0); MEAN CORPUSCULAR HGB CONC 34.2 pg (28.0-36.0); MEAN PLATELET VOLUME 7.9 fl; NEUTROPHILE ABSOLUTE 3.6 Th/cmm (1.8-8.0); PLATELET COUNT 205 Th/cmm (150-400); RED BLOOD COUNT 3.35 Mil/cmm (3.80-5.10); RED CELL DISTRIBUTION WIDTH 12.3 % (11.5-20.0); WHITE BLOOD COUNT 5.4 Th/cmm (4.8-10.8)
[2017-05-09 07:05] LABS: ANION GAP 6.4 (7.0-16.0); BUN - UREA NITROGEN 11 mg/dL (7-25); BUN/CREATININE RATIO 15.7; CARBON DIOXIDE 30.3 mEq/L (21.0-31.0); CHLORIDE 103 mEq/L (98-107); CREATININE - SERUM 0.7 mg/dL (0.6-1.2); GLUCOSE 97 mg/dL (70-105); POTASSIUM SERUM 3.7 mEq/L (3.5-5.1); SODIUM SERUM 136 mEq/L (136-145)
[2017-05-09] MEDS: Atorvastatin Calcium 10 MG TAB PO SCH (10:26)
[2017-05-09] MEDS: Aspirin 81mg Chewable Tab PO SCH (10:26)
[2017-05-09] MEDS: Pantoprazole 40 mg EC Tab PO SCH (10:27)
--- NOTE | 2017-05-09 10:37 | Diagnostic Imaging Report ---
Head CT without intravenous contrast Indication: Altered mental status Comparison: None Technique: Axial images were obtained from the vertex to the skull base without IV contrast. Coronal reconstructions were made. Total DLP: 624, CTDI36.6 FINDINGS: Images of the brain obtained without contrast demonstrate no evidence of an acute hemorrhage. Mild supratentorial white matter disease is noted. The ventricles and basal cisterns are patent. No mass effect or midline shift. No evidence of a skull fracture or focal soft tissue swelling. There is mucosal thickening or paranasal sinuses. IMPRESSION: No evidence of acute intracranial hemorrhage. Mild supratentorial white matter disease which is nonspecific and may be due to chronic microvessel ischemia. Mild mucosal thickening of the paranasal sinuses.
--- NOTE | 2017-05-09 12:36 | Pathology Report ---
[id number] Collection Date: 05/08/2017 Surgeon: Dr. Obed Ryan Specimen Description: 1. Duodenum biopsy 2. Antrum biopsy Gross Description: Part I: Received in formalin is a single [place] soft tissue fragment measuring 0.1 cm in greatest dimension. Totally submitted in one cassette labeled A. Gross Description: Part II: Received in formalin are two [place] soft tissue fragments ranging from 0.1 to 0.2 cm in greatest dimension. Totally submitted in one cassette labeled B. Microscopic Description: Part I: The histologic sections show duodenal mucosa with intact intestinal villi, showing no evidence for villous abnormality. Diagnosis: Part I: No evidence for celiac disease/sprue (duodenal biopsy). Microscopic Description: Part II: The histologic sections show gastric mucosa with mild chronic inflammation present consisting of lymphocytes and plasma cells. The Giemsa stain shows no evidence for Helicobacter pylori. Diagnosis: Part II: 1. Mild chronic gastritis, antrum biopsy. 2. The Giemsa stain is negative for Helicobacter pylori. [facility]# [id number]
--- NOTE | 2017-05-09 12:37 | Internal Medicine Prog Note ---
Internal Medicine Subjective - Subjective Service Date: 05/09/17 (DICTATED 6382066) Patient is:: awake, in bed Internal Medicine Objective - Results Result Diagrams: 05/09/17 05:54 05/09/17 05:54 Recent Labs: Laboratory Last Values WBC 5.4 Th/cmm (4.8-10.8) 05/09/17 05:54 RBC 3.35 Mil/cmm (3.80-5.10) L 05/09/17 05:54 Hgb 10.8 gm/dL (11.7-15.5) L 05/09/17 05:54 Hct 31.5 % (35.0-45.0) L 05/09/17 05:54 MCV 93.9 fl (81-100) 05/09/17 05:54 MCH 32.1 pg (27.0-31.0) H 05/09/17 05:54 MCHC Differential 34.2 pg (28.0-36.0) 05/09/17 05:54 RDW 12.3 % (11.5-20.0) 05/09/17 05:54 Plt Count 205 Th/cmm (150-400) 05/09/17 05:54 MPV 7.9 fl 05/09/17 05:54 Neutrophils % 66.7 % (40.0-80.0) 05/09/17 05:54 Lymphocytes % 18.5 % (20.0-50.0) L 05/09/17 05:54 Monocytes % 9.0 % (2.0-10.0) 05/09/17 05:54 Eosinophils % 5.6 % (0.0-5.0) H 05/09/17 05:54 Basophils % 0.2 % (0.0-2.0) 05/09/17 05:54 PT 11.0 SECONDS (9.5-11.5) 05/08/17 05:05 INR 1.06 (0.5-1.4) 05/08/17 05:05 Sodium 136 mEq/L (136-145) 05/09/17 05:54 Potassium 3.7 mEq/L (3.5-5.1) 05/09/17 05:54 Chloride 103 mEq/L (98-107) 05/09/17 05:54 Carbon Dioxide 30.3 mEq/L (21.0-31.0) 05/09/17 05:54 Anion Gap 6.4 (7.0-16.0) L 05/09/17 05:54 BUN 11 mg/dL (7-25) 05/09/17 05:54 Creatinine 0.7 mg/dL (0.6-1.2) 05/09/17 05:54 Est GFR ( Amer) > 60.0 ml/min (>90) 05/09/17 05:54 Est GFR (Non-Af Amer) > 60.0 ml/min 05/09/17 05:54 BUN/Creatinine Ratio 15.7 05/09/17 05:54 Glucose 97 mg/dL (70-105) 05/09/17 05:54 Calcium 9.0 mg/dL (8.6-10.3) 05/09/17 05:54 Total Bilirubin 0.6 mg/dL (0.3-1.0) 05/08/17 05:05 AST 16 U/L (13-39) 05/08/17 05:05 ALT 23 U/L (7-52) 05/08/17 05:05 Alkaline Phosphatase 58 U/L (34-104) 05/08/17 05:05 Ammonia 55 umol/L (16-53) H 05/07/17 05:30 Troponin I 0.01 ng/mL (0.01-0.05) 05/06/17 22:35 B-Natriuretic Peptide 23.9 pg/mL (5.0-100.0) 05/07/17 05:30 Total Protein 5.9 gm/dL (6.0-8.3) L 05/08/17 05:05 Albumin 3.2 gm/dL (3.7-5.3) L 05/08/17 05:05 Globulin 2.7 gm/dL 05/08/17 05:05 Albumin/Globulin Ratio 1.2 (1.0-1.8) 05/08/17 05:05 Triglycerides 58 mg/dL (<150) 05/08/17 05:05 Cholesterol 131 mg/dL (<200) 05/08/17 05:05 LDL Cholesterol Direct 72 mg/dL (75-193) L 05/08/17 05:05 HDL Cholesterol 50 mg/dL (23-92) 05/08/17 05:05 Amylase 20 U/L (29-103) L 05/06/17 14:40 Lipase 14 U/L (11-82) 05/08/17 05:05 Vitamin B12 527 pg/mL (211-946) 05/07/17 05:30 Folic Acid >20.0 ng/mL (>3.0) 05/07/17 05:30 TSH 2.09 uIU/ml (0.34-5.60) 05/08/17 05:05 Urine Source RANDOM 05/06/17 16:20 Urine Color YELLOW 05/06/17 16:20 Urine Clarity CLEAR (CLEAR) 05/06/17 16:20 Urine pH 7.0 05/06/17 16:20 Ur Specific [place] 1.015 (1.005-1.030) 05/06/17 16:20 Urine Protein NEGATIVE mg/dL (NEGATIVE) 05/06/17 16:20 Urine Glucose (UA) NEGATIVE mg/dL (NEGATIVE) 05/06/17 16:20 Urine Ketones TRACE mg/dL (NEGATIVE) 05/06/17 16:20 Urine Blood NEGATIVE (NEGATIVE) 05/06/17 16:20 Urine Nitrate NEGATIVE (NEGATIVE) 05/06/17 16:20 Urine Bilirubin NEGATIVE (NEGATIVE) 05/06/17 16:20 Urine Urobilinogen 0.2 E.U./dL (0.2 - 1.0) 05/06/17 16:20 Ur Leukocyte Esterase NEGATIVE (NEGATIVE) 05/06/17 16:20 Urine RBC NONE SEEN /hpf (0-5) 05/06/17 16:20 Urine WBC 0-2 /hpf (0-5) 05/06/17 16:20 Ur Epithelial Cells RARE /lpf (FEW) 05/06/17 16:20 Urine Bacteria OCCASIONAL /hpf (NONE SEEN) 05/06/17 16:20 Urine Mucus FEW /lpf (FEW) 05/06/17 16:20 Valproic Acid 48.9 ug/mL (50.0-100.0) L 05/06/17 22:35 - Physical Exam Vitals and I&O: Vital Signs Temp 97.8 F 05/09/17 11:24 Pulse 80 05/09/17 11:24 Resp 17 05/09/17 11:24 BP 131/75 05/09/17 11:24 Pulse Ox 98 05/09/17 11:24 Intake & Output 05/08/17 05/09/17 05/09/17 18:59 06:59 18:59 Intake Total 10 Balance 10 Weight (lbs) 216 lb 6.4 oz 216 lb Intake: Oral 10 Other: # Voids 2 # Bowel Movements 0 Active Medications: Current Medications Acetaminophen (Tylenol) 650 mg PO Q4H PRN PRN Reason: Pain Or Fever above 101 Stop: 07/05/17 18:35 Last Admin: 05/07/17 21:49 Dose: 650 mg Al Hydrox/Mg Hydrox/Simethicone (Maalox) 30 ml PO Q6H PRN PRN Reason: Dyspepsia Stop: 07/05/17 18:35 Albuterol Sulfate (Albuterol 2.5mg/3ml Neb Ud) 2.5 mg HHN Q2HRT PRN PRN Reason: Shortness of Breath or Wheeze Stop: 07/05/17 18:35 Last Admin: 05/08/17 21:00 Dose: 2.5 mg Amlodipine Besylate (Norvasc) 5 mg PO DAILY [facility] Stop: 07/06/17 08:59 Last Admin: 05/09/17 10:24 Dose: 5 mg Aspirin (Aspirin Chewable) 81 mg PO DAILY [facility] Stop: 07/07/17 08:59 Last Admin: 05/09/17 10:26 Dose: 81 mg Atorvastatin Calcium (Lipitor) 10 mg PO DAILY [facility] PRN Reason: Protocol Stop: 07/07/17 08:59 Last Admin: 05/09/17 10:26 Dose: 10 mg Carvedilol (Coreg) 3.125 mg PO BID [facility] Stop: 07/07/17 08:59 Last Admin: 05/09/17 10:27 Dose: 3.125 mg Clonidine HCl (Catapres) 0.1 mg PO Q6H PRN PRN Reason: SBP GREATER THAN 160 Stop: 07/05/17 18:35 Guaifenesin (Robitussin) 200 mg PO Q4HR PRN PRN Reason: Cough or Congestion Stop: 07/05/17 18:35 Heparin Sodium (Porcine) (Heparin) 5,000 units SUBQ Q12HR [facility] Stop: 07/06/17 20:59 Last Admin: 05/09/17 10:29 Dose: 5,000 units Hydroxyzine Pamoate (Vistaril) 50 mg PO Q4H PRN PRN Reason: Anxiety Stop: 07/05/17 22:22 Last Admin: 05/07/17 03:51 Dose: 50 mg Dextrose/Sodium Chloride (D5-0.9%Ns) 1,000 mls @ 80 mls/hr IV .[id number] [facility] Stop: 07/05/17 18:44 Last Admin: 05/08/17 22:31 Dose: 80 mls/hr Ipratropium [place] (Atrovent Neb 0.5mg/2.5ml) 0.5 mg IH Q2HRT PRN PRN Reason: Shortness of Breath or Wheeze Stop: 07/05/17 18:35 Last Admin: 05/08/17 21:00 Dose: 0.5 mg Lorazepam (Ativan) 1 mg PO Q6HR PRN; Protocol PRN Reason: Agitation Stop: 07/06/17 07:55 Last Admin: 05/09/17 00:27 Dose: 1 mg Losartan Potassium (Cozaar) 100 mg PO DAILY [facility] Stop: 07/06/17 08:59 Last Admin: 05/09/17 10:27 Dose: 100 mg Miscellaneous (Vte Chemical Prophylaxis Screen/ Admission) 1 ea [facility] PRN PRN PRN Reason: PROTOCOL Stop: 07/06/17 14:59 Morphine Sulfate (Morphine) 2 mg IVP Q4H PRN PRN Reason: Pain (Severe) Stop: 07/05/17 18:35 Last Admin: 05/08/17 01:04 Dose: 2 mg Ondansetron HCl (Zofran) 4 mg IV Q8H PRN PRN Reason: Nausea / Vomiting Stop: 07/05/17 18:35 Pantoprazole Sodium (Protonix) 40 mg PO BID [facility] Stop: 07/06/17 08:59 Last Admin: 05/09/17 10:27 Dose: 40 mg Quetiapine Fumarate (Seroquel) 300 mg PO HS [facility] PRN Reason: Protocol Stop: 07/06/17 20:59 Last Admin: 05/08/17 21:38 Dose: 300 mg Quetiapine Fumarate (Seroquel) 50 mg PO DAILY [facility] PRN Reason: Protocol Stop: 07/06/17 08:59 Last Admin: 05/09/17 10:25 Dose: 50 mg Trazodone HCl (Desyrel) 50 mg PO HS [facility] PRN Reason: Protocol Stop: 07/06/17 20:59 Last Admin: 05/08/17 21:38 Dose: 50 mg Zolpidem Tartrate (Ambien) 10 mg PO HS PRN PRN Reason: Insomnia Stop: 07/05/17 18:35 General: alert HEENT: NC/AT, PERRLA Neck: Supple Lungs: CTAB Cardiovascular: RRR, Normal S1, Normal S2, without murmur Abdomen: distended Extremities: clear Neurological: alert - Procedures Procedures: Procedures Procedure Code Date EGD BIOPSY SINGLE/MULTIPLE 01071 05/06/17 EXCISION OF DUODENUM, ENDO, DIAGN [id number] 05/06/17 EXCISION OF STOMACH, ENDO, DIAGN [id number] 05/06/17 Internal Medicine Assmt/Plan - Assessment Assessment: ABDOMINAL PAIN CHEST PAIN GERD ASHTMA HTN HYPONATREMIA INTRACTABLE NAUSEA/VOMITING
--- NOTE | 2017-05-09 14:04 | Cardiology ---
05/08/[address] Blackman. M-MODE ECHOCARDIOGRAM: Mitral valve, anterior leaflet of mitral valve shows normal excursion, EF velocity. Posterior leaflet of the mitral valve shows normal excursion. Left ventricular posterior wall shows increased thickness, normal excursion. Interventricular septum shows increased thickness, normal excursion, hypertrophy of the left ventricle, ejection fraction 65%. Left atrium normal. Aortic root shows normal dimension, normal excursion of aortic leaflets. CONCLUSION: Hypertrophy of the left ventricle, ejection fraction 65%. 2D ECHO: Long axis view showed normal sized left ventricle with hypertrophy of the left ventricle. Left atrium normal. Aortic root shows normal dimension, normal excursion of aortic leaflets. Short axis view of mitral valve normal. Short axis view of aortic valve normal. Apical 4-chamber view showed normal sized left ventricle, left atrium, right ventricle, right atrium, tricuspid and mitral valve, ejection fraction 65%. CONCLUSION: Hypertrophy of the left ventricle, ejection fraction 65%. Doppler study shows prominent A wave consistent with poor compliance of left ventricle with trace mitral regurgitation, trace tricuspid regurgitation, right ventricular systolic pressure 21 mmHg. CONCLUSION: Trace mitral regurgitation, trace tricuspid regurgitation, hypertrophy of the left ventricle, ejection fraction 65%. JOB# [id number]
--- NOTE | 2017-05-09 18:01 | Discharge Summary ---
DATE OF DISCHARGE: 05/09/2017 FINAL DIAGNOSES: Abdominal pain, resolved, intractable nausea and vomiting, resolved, chest pain, resolved, hypertension; asthma and gastroesophageal reflux disease. HISTORY OF PRESENT ILLNESS: This is a 61-year-old female with a 1-day history of nausea, vomiting and abdominal pain associated chest pain, so this patient was seen at [facility] and the patient was noted with intractable nausea, vomiting. For this reason, the patient was admitted. PHYSICAL EXAMINATION: GENERAL: The patient is well developed, well nourished, in no acute distress. VITAL SIGNS: Stable. HEENT: Head, normocephalic, atraumatic. NECK: Supple. No mass. LUNGS: Clear bilaterally. HEART: Regular rhythm. ABDOMEN: Soft, nontender. HOSPITAL COURSE: During the hospital stay, the patient was admitted to the med/surg unit. The patient had a CT of abdomen and pelvis done and the impression is no focal abnormalities visualized along the left anterior abdominal wall, tubular structure of the right lower quadrant probably representing terminal ileum. Appendix not well visualized. The patient had a GI consultation and on 05/08/2017, the patient had an EGD done and impression is normal stomach status post biopsy, normal duodenum, status post biopsy, GE junction at 35 cm with a small hiatal hernia, otherwise, normal esophagus. The patient was kept on IV fluids for hydration. The patient did not have any episodes of nausea, vomiting. During the hospital stay, the patient was kept on IV fluids for hydration. Also, since the patient was complaining of chest pain, the patient had a consultation with leather sponger, Dr. Kiran Banuelos. The patient had a ____ CT of the head done and there was no evidence of acute intracranial hemorrhage. For this reason, the patient is stable for discharge. CONDITION UPON DISCHARGE: Fair. DISPOSITION: Amir[facility] [place]. JOB# [id number]
--- NOTE | 2017-05-09 21:01 | Progress Notes ---
DATE: 05/09/2017 SUBJECTIVE: Chart reviewed and the patient interviewed. Also discussed the patient's condition with the staff and reviewed records and labs. The patient currently is calm, but she was agitated earlier yesterday, during the evening shift. She also ripped off her IV and had to be replaced. She also still seems to be actively responding to stimuli. The patient also still has periods of anger and irritability. Otherwise, the patient is compliant with taking Seroquel with no side effect of Seroquel. ASSESSMENT: The patient is still agitated and psychotic. TREATMENT PLAN: We will continue monitoring her behavior and her condition closely. Also, we will increase Seroquel to 50 mg in the morning and 300 mg at bedtime. Also, we will continue on her transfer to [facility] according to the nursing staff. JOB# [id number]
[2017-05-09] MEDS ORDERED: Albuterol Nebulizer 2.5mg/3mL HHN PRN (21:09)
[2017-05-09] MEDS ORDERED: Ipratropium Neb 0.5 mg/2.5 mL UD HHN PRN (21:11)
[2017-05-10] MEDS: Aspirin 81mg Chewable Tab PO SCH (09:30)
[2017-05-10] MEDS: Atorvastatin Calcium 10 MG TAB PO SCH (09:31)
--- NOTE | 2017-05-10 13:45 | Internal Medicine Prog Note ---
Internal Medicine Subjective - Subjective Service Date: 05/10/17 (AWAITING FOR SNF PLACEMENT) Patient is:: awake, in bed Internal Medicine Objective - Results Result Diagrams: 05/09/17 05:54 05/09/17 05:54 Recent Labs: Laboratory Last Values WBC 5.4 Th/cmm (4.8-10.8) 05/09/17 05:54 RBC 3.35 Mil/cmm (3.80-5.10) L 05/09/17 05:54 Hgb 10.8 gm/dL (11.7-15.5) L 05/09/17 05:54 Hct 31.5 % (35.0-45.0) L 05/09/17 05:54 MCV 93.9 fl (81-100) 05/09/17 05:54 MCH 32.1 pg (27.0-31.0) H 05/09/17 05:54 MCHC Differential 34.2 pg (28.0-36.0) 05/09/17 05:54 RDW 12.3 % (11.5-20.0) 05/09/17 05:54 Plt Count 205 Th/cmm (150-400) 05/09/17 05:54 MPV 7.9 fl 05/09/17 05:54 Neutrophils % 66.7 % (40.0-80.0) 05/09/17 05:54 Lymphocytes % 18.5 % (20.0-50.0) L 05/09/17 05:54 Monocytes % 9.0 % (2.0-10.0) 05/09/17 05:54 Eosinophils % 5.6 % (0.0-5.0) H 05/09/17 05:54 Basophils % 0.2 % (0.0-2.0) 05/09/17 05:54 PT 11.0 SECONDS (9.5-11.5) 05/08/17 05:05 INR 1.06 (0.5-1.4) 05/08/17 05:05 Sodium 136 mEq/L (136-145) 05/09/17 05:54 Potassium 3.7 mEq/L (3.5-5.1) 05/09/17 05:54 Chloride 103 mEq/L (98-107) 05/09/17 05:54 Carbon Dioxide 30.3 mEq/L (21.0-31.0) 05/09/17 05:54 Anion Gap 6.4 (7.0-16.0) L 05/09/17 05:54 BUN 11 mg/dL (7-25) 05/09/17 05:54 Creatinine 0.7 mg/dL (0.6-1.2) 05/09/17 05:54 Est GFR ( Amer) > 60.0 ml/min (>90) 05/09/17 05:54 Est GFR (Non-Af Amer) > 60.0 ml/min 05/09/17 05:54 BUN/Creatinine Ratio 15.7 05/09/17 05:54 Glucose 97 mg/dL (70-105) 05/09/17 05:54 Calcium 9.0 mg/dL (8.6-10.3) 05/09/17 05:54 Total Bilirubin 0.6 mg/dL (0.3-1.0) 05/08/17 05:05 AST 16 U/L (13-39) 05/08/17 05:05 ALT 23 U/L (7-52) 05/08/17 05:05 Alkaline Phosphatase 58 U/L (34-104) 05/08/17 05:05 Ammonia 55 umol/L (16-53) H 05/07/17 05:30 Troponin I 0.01 ng/mL (0.01-0.05) 05/06/17 22:35 B-Natriuretic Peptide 23.9 pg/mL (5.0-100.0) 05/07/17 05:30 Total Protein 5.9 gm/dL (6.0-8.3) L 05/08/17 05:05 Albumin 3.2 gm/dL (3.7-5.3) L 05/08/17 05:05 Globulin 2.7 gm/dL 05/08/17 05:05 Albumin/Globulin Ratio 1.2 (1.0-1.8) 05/08/17 05:05 Triglycerides 58 mg/dL (<150) 05/08/17 05:05 Cholesterol 131 mg/dL (<200) 05/08/17 05:05 LDL Cholesterol Direct 72 mg/dL (75-193) L 05/08/17 05:05 HDL Cholesterol 50 mg/dL (23-92) 05/08/17 05:05 Amylase 20 U/L (29-103) L 05/06/17 14:40 Lipase 14 U/L (11-82) 05/08/17 05:05 Vitamin B12 527 pg/mL (211-946) 05/07/17 05:30 Folic Acid >20.0 ng/mL (>3.0) 05/07/17 05:30 TSH 2.09 uIU/ml (0.34-5.60) 05/08/17 05:05 Urine Source RANDOM 05/06/17 16:20 Urine Color YELLOW 05/06/17 16:20 Urine Clarity CLEAR (CLEAR) 05/06/17 16:20 Urine pH 7.0 05/06/17 16:20 Ur Specific [place] 1.015 (1.005-1.030) 05/06/17 16:20 Urine Protein NEGATIVE mg/dL (NEGATIVE) 05/06/17 16:20 Urine Glucose (UA) NEGATIVE mg/dL (NEGATIVE) 05/06/17 16:20 Urine Ketones TRACE mg/dL (NEGATIVE) 05/06/17 16:20 Urine Blood NEGATIVE (NEGATIVE) 05/06/17 16:20 Urine Nitrate NEGATIVE (NEGATIVE) 05/06/17 16:20 Urine Bilirubin NEGATIVE (NEGATIVE) 05/06/17 16:20 Urine Urobilinogen 0.2 E.U./dL (0.2 - 1.0) 05/06/17 16:20 Ur Leukocyte Esterase NEGATIVE (NEGATIVE) 05/06/17 16:20 Urine RBC NONE SEEN /hpf (0-5) 05/06/17 16:20 Urine WBC 0-2 /hpf (0-5) 05/06/17 16:20 Ur Epithelial Cells RARE /lpf (FEW) 05/06/17 16:20 Urine Bacteria OCCASIONAL /hpf (NONE SEEN) 05/06/17 16:20 Urine Mucus FEW /lpf (FEW) 05/06/17 16:20 Valproic Acid 48.9 ug/mL (50.0-100.0) L 05/06/17 22:35 - Physical Exam Vitals and I&O: Vital Signs Temp 97.5 F 05/10/17 08:00 Pulse 104 05/10/17 09:31 Resp 18 05/10/17 13:40 BP 158/96 05/10/17 09:31 Pulse Ox 95 05/10/17 08:00 Intake & Output 05/09/17 05/10/17 05/10/17 18:59 06:59 18:59 Intake Total 800 500 Balance 800 500 Weight (lbs) 216 lb 215 lb 14.4 oz Intake: Oral 800 500 Other: # Voids 3 2 # Bowel Movements 1 1 Active Medications: Current Medications Albuterol Sulfate (Albuterol 2.5mg/3ml Neb Ud) 2.5 mg HHN Q2HRT PRN PRN Reason: Shortness of Breath or Wheeze Stop: 07/08/17 22:59 Last Admin: 05/09/17 21:35 Dose: 2.5 mg Amlodipine Besylate (Norvasc) 5 mg PO DAILY [facility] Stop: 07/06/17 08:59 Last Admin: 05/10/17 09:31 Dose: 5 mg Aspirin (Aspirin Chewable) 81 mg PO DAILY [facility] Stop: 07/07/17 08:59 Last Admin: 05/10/17 09:30 Dose: 81 mg Atorvastatin Calcium (Lipitor) 10 mg PO DAILY [facility] PRN Reason: Protocol Stop: 07/07/17 08:59 Last Admin: 05/10/17 09:31 Dose: 10 mg Carvedilol (Coreg) 3.125 mg PO BID [facility] Stop: 07/07/17 08:59 Last Admin: 05/10/17 09:31 Dose: 3.125 mg Hydroxyzine Pamoate (Vistaril) 50 mg PO Q4H PRN PRN Reason: Anxiety Stop: 07/05/17 22:22 Last Admin: 05/07/17 03:51 Dose: 50 mg Ipratropium [place] (Atrovent Neb 0.5mg/2.5ml) 0.5 mg HHN Q2HRT PRN PRN Reason: Shortness of Breath or Wheeze Stop: 07/08/17 22:59 Last Admin: 05/09/17 21:35 Dose: 0.5 mg Losartan Potassium (Cozaar) 100 mg PO DAILY [facility] Stop: 07/06/17 08:59 Last Admin: 05/10/17 09:31 Dose: 100 mg Mupirocin (Bactroban Oint) 1 appl NS BID [facility] Stop: 05/14/17 09:01 Last Admin: 05/10/17 09:31 Dose: 1 appl Ondansetron HCl (Zofran) 4 mg IV Q8H PRN PRN Reason: Nausea / Vomiting Stop: 07/05/17 18:35 Quetiapine Fumarate (Seroquel) 300 mg PO HS MARII PRN Reason: Protocol Stop: 07/06/17 20:59 Last Admin: 05/09/17 20:08 Dose: 300 mg Quetiapine Fumarate (Seroquel) 50 mg PO DAILY MARII PRN Reason: Protocol Stop: 07/06/17 08:59 Last Admin: 05/10/17 09:30 Dose: 50 mg Tramadol HCl (Ultram) 50 mg PO Q6HR PRN PRN Reason: Pain (Moderate) Stop: 07/09/17 08:44 Last Admin: 05/10/17 09:30 Dose: 50 mg Trazodone HCl (Desyrel) 50 mg PO HS MARII PRN Reason: Protocol Stop: 07/06/17 20:59 Last Admin: 05/09/17 20:08 Dose: 50 mg General: alert HEENT: NC/AT, PERRLA Neck: Supple Lungs: CTAB Cardiovascular: RRR, Normal S1, Normal S2, without murmur Abdomen: distended Extremities: clear Neurological: alert - Procedures Procedures: Procedures Procedure Code Date EGD BIOPSY SINGLE/MULTIPLE 60434 05/06/17 EXCISION OF DUODENUM, ENDO, DIAGN [id number] 05/06/17 EXCISION OF STOMACH, ENDO, DIAGN [id number] 05/06/17 Internal Medicine Assmt/Plan - Assessment Assessment: ABDOMINAL PAIN CHEST PAIN GERD ASHTMA HTN HYPONATREMIA INTRACTABLE NAUSEA/VOMITING - Plan Plan: AWAITING FOR BED AVAILABILITY AT [facility]
== END 2017-05-10 17:50 | disposition home or self-care (01) | DRG 392 ==
LOC: ER 14:39 → TELE 19:47 → MSI 05-08 11:47
PROVIDERS: ADMIT Internal Medicine; ATTEND Internal Medicine
PROC: 0DB98ZX Excision of Duodenum, Via Natural or Artificial Opening Endoscopic, Diagnostic (ICD-10-PCS; principal; 2017-05-08)
PROC: 0DB68ZX Excision of Stomach, Via Natural or Artificial Opening Endoscopic, Diagnostic (ICD-10-PCS; 2017-05-08)
DX: K29.70 Gastritis, unspecified, without bleeding (principal); E87.1 Hypo-osmolality and hyponatremia; I10 Essential (primary) hypertension; K44.9 Diaphragmatic hernia without obstruction or gangrene; J45.909 Unspecified asthma, uncomplicated; K21.9 Gastro-esophageal reflux disease without esophagitis; I25.10 Atherosclerotic heart disease of native coronary artery without angina pectoris; F20.9 Schizophrenia, unspecified; F41.9 Anxiety disorder, unspecified; R07.89 Other chest pain; R62.7 Adult failure to thrive; E66.9 Obesity, unspecified; Z96.652 Presence of left artificial knee joint; Z90.722 Acquired absence of ovaries, bilateral; Z90.710 Acquired absence of both cervix and uterus; Z80.0 Family history of malignant neoplasm of digestive organs; Z88.8 Allergy status to other drugs, medicaments and biological substances; Z83.3 Family history of diabetes mellitus; Z68.33 Body mass index [BMI] 33.0-33.9, adult; Z82.49 Family history of ischemic heart disease and other diseases of the circulatory system
CPT/HCPCS: 36415-UA; 70450-TC; 71010-TC; 76700-TC; 80048-TC; 80053-TC; 80061-TC; 80164-TC; 81001-TC; 82140-TC; 82150-TC; 82607-90; 82746-90; 83690-TC; 83880-TC; 84443-TC; 84484-TC; 85025-TC; 85610-TC; 88305-90; 88312-90; 90779; 93005; 94640; 94760; 96374; 96375; 96376; J1200; J1644; J2060; J2270; J2405; J2704; J7030; J7042; J7613; Q0177; Z7610

== ENCOUNTER 2019-08-19 18:33 | Inpatient (IN) | payer MEDICAID, MEDICARE, OTHER ==
[2019-08-19 19:42] VITALS: BP 111/69
--- NOTE | 2019-08-20 09:03 | Psychiatric Evaluation ---
DATE OF SERVICE: 08/19/2019 AGE: 63. SEX: Female. PHYSICIAN: Dr. Bennett. CHIEF COMPLAINT: 5150 hold for gravely disabled. HISTORY OF PRESENT ILLNESS: The patient is a 63-year-old female who was placed on 5150 hold after the patient was evaluated in [facility] Emergency Room. The patient said that she was not able to walk without her crutches. The patient did not have any crutches with her. The patient also said that she is homeless and she is not able to tell where she is exactly staying. The patient also is not able to say when was the last time she ate and who is taking care of her and where she has been living. The patient considered to be gravely disabled. The patient has a history of what seems to be a schizoaffective disorder and the patient has been taking Seroquel in a dose of 300 mg at bedtime. PAST MEDICAL HISTORY: The patient is using crutches and it is not clear why she is using the crutches for a period. SOCIAL HISTORY: The patient is homeless. The patient has a sister, otherwise no other family members. The patient denies any alcohol or drug use. She denies legal issues or abuse issues. ALLERGIES: AMPHETAMINE and DEXTROAMPHETAMINE. MENTAL STATUS EXAMINATION: The patient appears much older than her stated age. Disheveled. Flat affect. In a depressed mood. Thought processes are with poverty of speech. The patient denies auditory or visual hallucinations, but admits to being paranoid. The patient denies any thoughts of suicide or homicide. The patient is alert and oriented to situation, but not to place, person or date. Impaired immediate and recent memory, but intact remote memory and she remembered her date. Poor insight and judgment. Seems to be of average intelligence based on her verbal ability. ASSESSMENT: PRIMARY DIAGNOSIS: Schizoaffective disorder, depressed episode, with psychotic features. TREATMENT PLAN: We will monitor the patient's behavior and condition closely. We will start individual as well as milieu psychotherapy. Also, we will try to get more information and work on discharge plans and placement issue. ESTIMATED LENGTH OF STAY: 5-7 days. PATIENT'S STRENGTHS AND WEAKNESSES: The patient's strength is not clear at this time. Weaknesses is ineffective coping. AFTER DISCHARGE PLAN: The patient will need placement and outpatient treatment and followup will continue as an outpatient. CRITERIA FOR DISCHARGE: The patient will not be graded as gravely disabled. JOB# [id number]
--- NOTE | 2019-08-20 10:15 | History & Physical ---
ADMIT DATE: 08/20/2019 PATIENT IDENTIFICATION: A 63-year-old female. CHIEF COMPLAINT: "I need placement." HISTORY OF PRESENT ILLNESS: A 63-year-old -[place] female admitted by Dr. Patricia Bennett at [facility] after the patient presented to a [facility] Emergency Room for behavioral problem where the patient was medically cleared. According to the patient, she has not been taking her medications for her hypertension. The patient stated that she needs physical. PAST MEDICAL HISTORY: Remarkable for: 1. Hypertension. 2. DJD. 3. Psychotic disorder. 4. Right knee replacement. 5. History of ovarian cyst removed. MEDICATIONS AT HOME: Taking Seroquel and trazodone. ALLERGIES: The patient is allergic to ADDERALL and DEXTROAMPHETAMINE. SOCIAL HISTORY: The patient is currently homeless. The patient has no history of smoking cigarette, alcohol, or drug use. FAMILY MEDICAL HISTORY: Remarkable for diabetes and hypertension. MENSTRUAL AND GYNECOLOGIC HISTORY: The patient is menopausal. She is 0, para 0. REVIEW OF SYSTEMS: The patient currently denies any headache, blurred vision, double vision, dysphagia, odynophagia, runny nose, stuffy nose, fever, chills, cough, chest pain, shortness of breath, palpitation, dizziness, nausea, vomiting, diarrhea, dysuria, hematuria, hematochezia, melena. No history of any seizure or syncopal episode. The patient does complain of intermittent pain on her right and left knee. PHYSICAL EXAMINATION: GENERAL: The patient is alert, awake, oriented, lying in the bed without any acute distress. VITAL SIGNS: Temperature 97.6, pulse 74, respiratory rate 18, blood pressure 117/74. HEENT: Normocephalic, atraumatic. Extraocular muscles are intact. Tongue was pink and coated. Poor dentition noted. Sclerae with icterus. No facial asymmetry. No oral exudate. External auditory canal ____ are well visualized. NECK: Supple, no JVD, no hepatojugular reflex. No lymphadenopathy, no carotid bruit. HEART: Both heart sounds are regular. No S3, no S4, no murmur. CHEST AND LUNGS: Equal in expansion, no expiratory wheezing. ABDOMEN: Soft. No guarding, no rigidity. Bowel sounds present. No palpable mass. EXTREMITIES: No edema, no cyanosis, no clubbing. Peripheral pulses +1. No calf tenderness noted. NEUROLOGIC: Alert, awake and oriented to time, place, person. 2-12 cranial nerves are intact. Power in upper and lower extremities 5+ and sensory touch intact. Babinski's in both toes are going down. No cerebral sign. AVAILABLE DIAGNOSTIC DATA: Performed at Emergency Room remarkable for 11-25 wbc's, trace bacteria. Hemoglobin was negative, nitrites are negative. Proteins were negative. Urine otherwise clean, urine drug screen was negative. CT scan of head without contrast was unremarkable. Chest x-ray was also done, which was unremarkable. BUN and creatinine is normal at 23 and 1.1. CPK of 127. Troponin less than 0.02, hemoglobin of 10.4, white blood cells 6.2, platelet count of 171. CLINICAL IMPRESSION: 1. Hypertension. 2. Chronic kidney disease stage 3. 3. Normocytic normochromic anemia. 4. Degenerative joint disease. 5. Psychotic disorder. 6. Status post right total knee replacement. 7. Postmenopausal. 8. Homeless. 9. Psychotic disorder. PLAN: 1. Psychotic evaluation and management deferred to psychiatrist. The patient does have anemia, which needs workup, which can be done as an outpatient. 2. Chronic kidney disease remaining stable. 3. Blood pressure will be monitored and will be resume antihypertensive medicine if blood pressure starts climbing up. Psychotic evaluation and management deferred to psychiatrist. The patient will be placed on aspirin for CVA prophylaxis as well as the patient will be given calcium and vitamin D for now. The patient will be given nutritional support and fall precaution. The patient will be followed by us during her stay in the hospital. The patient will require annual wellness exam once the patient is discharged from the hospital. Care plan has been reviewed and discussed with the patient and assigned nurse. JOB# [id number]
[2019-08-20] MEDS: Atorvastatin Calcium 10 MG TAB PO SCH (10:43)
[2019-08-20] MEDS: Calcium Carb/Vit D 500 mg/200 U Tab PO SCH (17:31)
--- NOTE | 2019-08-21 07:48 | Progress Notes ---
DATE: SUBJECTIVE: Chart reviewed and the patient interviewed. Also discussed the patient's condition with the staff and reviewed records and labs. The patient is still poor historian and still has disorganized thoughts. The patient also seems to be confused. The patient also is restless and gets easily agitated. She also is still unable to provide any safe plan for self-care. The patient also needs redirections. Otherwise, no major behavioral problems. ASSESSMENT: The patient is still psychotic and considered to be gravely disabled. TREATMENT PLAN: Continue to monitor her behavior and her condition closely. Also, continue to work on her ineffective coping and her impulsivity and continue to follow up closely. JOB# [id number]
[2019-08-21] MEDS: Pantoprazole 40 mg EC Tab PO SCH (08:40)
[2019-08-21] MEDS: Atorvastatin Calcium 10 MG TAB PO SCH (08:41)
[2019-08-21] MEDS: Calcium Carb/Vit D 500 mg/200 U Tab PO SCH ×2 (08:41→16:38)
--- NOTE | 2019-08-21 21:51 | Progress Notes ---
DATE: 08/21/2019 IDENTIFICATION: A 63-year-old female. SUBJECTIVE: The patient seen and examined. The patient is lying in the bed. The patient has no new complaint. PHYSICAL EXAMINATION: VITAL SIGNS: Temperature 98.1, pulse is 82, respiratory rate 18, blood pressure 126/85. HEENT: No facial asymmetry. NECK: Supple, no JVD. HEART: Regular. CHEST AND LUNGS: Equal in expansion, no expiratory wheezing. ABDOMEN: Soft. EXTREMITIES: No edema. NEUROLOGIC: Limited, but nonfocal. CLINICAL IMPRESSION: 1. Hypertension. 2. Hyperlipidemia. 3. Degenerative joint disease. 4. Psychotic disorder. 5. Chronic kidney disease, stage 3. 6. History of right total knee replacement. 7. Normocytic normochromic anemia secondary to chronic disease. 8. Postmenopausal. 9. Homelessness. PLAN: 1. Monitor blood pressure. 2. Antihypertensive medicine. 3. Statin. 4. Fall precaution. 5. Psychiatric medication. 6. General nursing care. 7. Nutritional support. 8. We will continue to follow this patient during the stay in the hospital. JOB# [id number]
[2019-08-22] MEDS: Pantoprazole 40 mg EC Tab PO SCH (09:03)
[2019-08-22] MEDS: Atorvastatin Calcium 10 MG TAB PO SCH (09:03)
[2019-08-22] MEDS: Calcium Carb/Vit D 500 mg/200 U Tab PO SCH ×2 (09:03→16:25)
--- NOTE | 2019-08-22 09:23 | Progress Notes ---
DATE: SUBJECTIVE: Chart was reviewed and the patient was interviewed and also discussed the patient's condition with the staff and reviewed the records and labs. The patient is still confused and she thinks that she is in a motel and asking for "what time is the check out." The patient also is still forgetful and she still has disorganized form. The patient also is restless and she is unable to provide any safe plan for self-care. She said that she can go to live with a friend, but at the same time, she has no friend address or phone number. ASSESSMENT: The patient is still confused and considered to be gravely disabled and dangerous to self. TREATMENT PLAN: We will continue to monitor the patient's behavior and the condition closely. Also, we will continue Seroquel and trazodone same dose. Also, we will place the patient on 5250 hold for grave disability and dangers to self and we will continue to follow up closely. JOB# [id number]
--- NOTE | 2019-08-23 02:36 | Progress Notes ---
DATE: 08/22/2019 SUBJECTIVE: The patient seen and examined. The patient is lying in the bed. The patient complained of intermittent chest pain when she takes a deep breath, but the patient has no cough, no fever, no nausea, no vomiting, no diaphoresis, no palpitation. PHYSICAL EXAMINATION: VITAL SIGNS: Temperature 97.4, pulse is 73, respiratory rate is 19, blood pressure 120/65. HEENT: No facial asymmetry. Poor dentition. NECK: Supple, no JVD. HEART: Regular. CHEST AND LUNGS: Equal in expansion, no expiratory wheezing. ABDOMEN: Soft. No guarding, no rigidity. Bowel sounds are present. No palpable mass. EXTREMITIES: No edema, no cyanosis, no clubbing. Peripheral pulses are +2. No calf tenderness. NEUROLOGIC: Nonfocal. CLINICAL IMPRESSION: 1. Hypertension. 2. Hyperlipidemia. 3. Chronic kidney disease stage III. 4. Degenerative joint disease. 5. Psychotic disorder. 6. Anemia of chronic illness. 7. History of right total knee replacement. PLAN: 1. Antihypertensive medicine. 2. Monitor blood pressure. 3. Statin. 4. Fall precaution. 5. Psych medication. 6. Psych followup. 7. General nursing care. 8. Nutritional support. 9. Symptoms management. 10. Care plan reviewed and discussed with staff. JOB# [id number]
[2019-08-23] MEDS: Calcium Carb/Vit D 500 mg/200 U Tab PO SCH ×2 (08:44→16:33)
[2019-08-23] MEDS: Pantoprazole 40 mg EC Tab PO SCH (08:45)
[2019-08-23] MEDS: Atorvastatin Calcium 10 MG TAB PO SCH (08:45)
[2019-08-24] MEDS: Calcium Carb/Vit D 500 mg/200 U Tab PO SCH ×2 (09:07→17:10)
[2019-08-24] MEDS: Pantoprazole 40 mg EC Tab PO SCH (09:07)
[2019-08-24] MEDS: Atorvastatin Calcium 10 MG TAB PO SCH (09:07)
--- NOTE | 2019-08-24 18:24 | Progress Notes ---
DATE: 08/23/2019 SUBJECTIVE: Chart was reviewed and the patient interviewed. Also discussed the patient's condition with the staff and reviewed records and labs. The patient still has disorganized thoughts and is still confused. The patient also is still restless and still thinks that she is in a hotel and asking to be checked out from the hotel. The patient also still needs redirections, but easy to redirect her. She also at times withdrawn and wants to be left alone. Otherwise, no side effects of Seroquel. ASSESSMENT: The patient is still psychotic and needs close monitoring. TREATMENT PLAN: Continue monitoring her behavior and condition closely. Also, continue working on her inability to provide any safe plan for self-care and also continue adjusting psychotropic medications and followup. JOB# [id number]
--- NOTE | 2019-08-24 18:54 | Progress Notes ---
DATE: 08/24/2019 DATE OF SERVICE: 08/24/2019 SUBJECTIVE: Chart was reviewed and the patient interviewed. Also discussed the patient's condition with the staff and reviewed records and labs. The patient still has depressed mood. The patient also is withdrawn and interacting minimally with others. She also is still confused and still thinking that she is in a motel, wants to check out. Otherwise, the patient is compliant with taking her medications with no side effects of medications. ASSESSMENT: The patient is still agitated and in irritable mood. TREATMENT PLAN: Continue to monitor behavior and condition closely and continue adjusting psychotropic medications and work on behavioral modification. JOB# [id number]
--- NOTE | 2019-08-24 21:32 | Progress Notes ---
DATE: 08/24/2019 SUBJECTIVE: The patient seen and examined. The patient is lying in the bed comfortably. On further questioning, the patient denies any chest pain, shortness of breath, palpitation, dizziness, nausea, vomiting, headache. PHYSICAL EXAMINATION: VITAL SIGNS: Temperature 98.6, pulse 74, respiratory rate 18, blood pressure 130/70. HEENT: No facial asymmetry. Poor dentition noted. NECK: Supple, no JVD. HEART: Regular. CHEST AND LUNGS: Equal in expansion, no expiratory wheezing. ABDOMEN: Soft. Bowel sounds are present. No palpable mass. EXTREMITIES: No edema. NEUROLOGIC: Alert, awake, follows command. CLINICAL IMPRESSION: 1. Hypertension. 2. Chronic kidney disease 3. 3. Hyperlipidemia. 4. Degenerative joint disease. 5. Anemia of chronic disease. 6. Psychotic disorder. 7. Homelessness. 8. History of right total knee replacement. PLAN: 1. Antihypertensive medicine. 2. Monitor blood pressure. 3. Statin. 4. Fall precautions. 5. Psych medication. 6. Psych followup. 7. General nursing care. 8. Social service to be involved for placement. 9. Care plan reviewed and discussed with staff. JOB# [id number]
[2019-08-25] MEDS: Pantoprazole 40 mg EC Tab PO SCH (08:30)
[2019-08-25] MEDS: Calcium Carb/Vit D 500 mg/200 U Tab PO SCH ×2 (08:31→16:19)
[2019-08-25] MEDS: Atorvastatin Calcium 10 MG TAB PO SCH (08:31)
--- NOTE | 2019-08-26 02:08 | Progress Notes ---
DATE: 08/25/2019 SUBJECTIVE: Chart was reviewed and the patient interviewed. Also discussed the patient's condition with the staff and reviewed records and labs. The patient is calm. The patient also is quiet. She also is still interacting minimally with others. She is also sleeping better. The patient also still has no safe plan for self-care and slightly confused. Otherwise, the patient is compliant with medications with no side effects. ASSESSMENT: The patient is still confused and needs close monitoring. TREATMENT PLAN: Continue to monitor behavior and condition closely. Also, continue adjusting psychotropic medications and work on her psychosis. JOB# [id number]
[2019-08-26] MEDS: Calcium Carb/Vit D 500 mg/200 U Tab PO SCH ×2 (08:35→16:55)
[2019-08-26] MEDS: Pantoprazole 40 mg EC Tab PO SCH (08:35)
[2019-08-26] MEDS: Escitalopram Oxalate 5 mg Tab PO SCH (08:35)
[2019-08-26] MEDS: Atorvastatin Calcium 10 MG TAB PO SCH (08:35)
--- NOTE | 2019-08-26 18:42 | Progress Notes ---
DATE: 08/26/2019 SUBJECTIVE: The patient seen and examined. The patient is lying in the bed. The patient denies any chest pain, shortness of breath, palpitation, dizziness, nausea, vomiting or headache. PHYSICAL EXAMINATION: VITAL SIGNS: Temperature 97.6, pulse is 72, respiratory rate 20, blood pressure 145/70. HEENT: No facial asymmetry. Poor dentition noted. NECK: Supple, no JVD, no lymphadenopathy or thyromegaly. HEART: Both heart sounds are regular. CHEST AND LUNGS: Equal in expansion, no expiratory wheezing. ABDOMEN: Soft, no guarding, no rigidity. Bowel sounds are present. No palpable mass. EXTREMITIES: No edema, no cyanosis, no calf tenderness. Medication admission record has been reviewed. CLINICAL IMPRESSION: 1. Hypertension. 2. Degenerative joint disease. 3. Hyperlipidemia. 4. Chronic kidney disease 3. 5. Anemia of chronic kidney disease and chronic illness. 6. Psychotic disorder. PLAN: 1. Monitor blood pressure. 2. Antihypertensive medicine. 3. Statin for hyperlipidemia. 4. Psych medication. 5. Psych followup. 6. General nursing care. 7. PT, OT. 8. Care plan reviewed and discussed with staff. JOB# [id number]
[2019-08-27] MEDS: Atorvastatin Calcium 10 MG TAB PO SCH (08:23)
[2019-08-27] MEDS: Calcium Carb/Vit D 500 mg/200 U Tab PO SCH ×2 (08:23→16:38)
[2019-08-27] MEDS: Pantoprazole 40 mg EC Tab PO SCH (08:23)
[2019-08-27] MEDS: Escitalopram Oxalate 5 mg Tab PO SCH (08:23)
--- NOTE | 2019-08-27 09:56 | Progress Notes ---
DATE: 08/26/2019 SUBJECTIVE: Chart was reviewed and the patient interviewed. Also discussed the patient's condition with the staff and reviewed records and labs. The patient is still in a depressed mood. The patient also is interacting minimally with peers and with others. She also is isolative. The patient also is denying any intention to harm herself or others, but she is still severely depressed and withdrawn. Otherwise, the patient is compliant with taking her medications with no side effects of medications. ASSESSMENT: The patient is still depressed and is still withdrawn and needs lots of assessment and assurance. TREATMENT PLAN: Continue to monitor her behavior and her condition closely. Also, continue working on her ineffective coping and also on her irritability and her ineffective coping and continue to follow up... ADDENDUM: Because of the patient's depression, I will add Lexapro in a dose of 5 mg every day and continue to follow up. [facility]# [id number]
--- NOTE | 2019-08-27 17:57 | Progress Notes ---
DATE: 08/27/2019 SUBJECTIVE: The patient seen and examined. The patient is lying in the bed. The patient has no new complaint. OBJECTIVE: VITAL SIGNS: Temperature 98.6, pulse is 69, respiratory rate 20, blood pressure 122/62. HEENT: No facial asymmetry. NECK: Supple, no JVD. HEART: Regular. LUNGS: Clear. ABDOMEN: Soft. EXTREMITIES: No edema. CLINICAL IMPRESSION: 1. Hypertension. 2. Hyperlipidemia. 3. Degenerative joint disease. 4. Chronic kidney disease. 5. Psychotic disorder. 6. Homelessness. 7. Osteoporosis. PLAN: 1. Continue current medicine as prescribed. 2. Fall precautions. 3. Nutritional support. 4. General nursing care. 5. We will continue to follow this patient during the stay in the hospital. JOB# [id number]
--- NOTE | 2019-08-27 23:05 | Progress Notes ---
DATE: SUBJECTIVE: Chart was reviewed and the patient interviewed. Also discussed the patient's condition with the staff and reviewed records and labs. The patient is still in a depressed mood and she is still guarded and withdrawn. The patient also is interacting minimally with peers and with others. She also still seems to be suspicious and paranoid. Otherwise, the patient is compliant with taking her medications with no side effects of medications. ASSESSMENT: The patient is still depressed and still needs close monitoring. TREATMENT PLAN: Continue to monitor her behavior and her health condition closely. Also, yesterday Lexapro was added in a dose of 5 mg every day and we will continue same dose. Also, we will continue Seroquel in a dose of 25 mg in the morning and 300 mg at bedtime and we will continue to followup. JOB# [id number]
[2019-08-28] MEDS: Calcium Carb/Vit D 500 mg/200 U Tab PO SCH ×2 (08:43→16:20)
[2019-08-28] MEDS: Atorvastatin Calcium 10 MG TAB PO SCH (08:43)
[2019-08-28] MEDS: Pantoprazole 40 mg EC Tab PO SCH (08:44)
--- NOTE | 2019-08-28 23:04 | Progress Notes ---
DATE: 08/28/2019 PSYCHIATRIC PROGRESS NOTE SUBJECTIVE: Chart was reviewed and the patient interviewed. Also discussed the patient's condition with the staff and reviewed records and labs. The patient is still in a depressed mood. The patient also is withdrawn and interacting minimally with others. The patient also still feels hopeless, especially with where she is going to live after her discharge. She also still has minimum interaction and wants to be left alone and stays by herself most of the time. The patient also is slightly paranoid and delusional and thinking that somebody is outside coming to pick her up. Otherwise, the patient is compliant with taking her medications with no side effects of medications. ASSESSMENT: The patient is still depressed and still slightly paranoid. TREATMENT PLAN: Continue to monitor behavior and condition closely. Also, continue Seroquel same dose, but will increase Lexapro to 10 mg every day and will continue to follow up closely. [facility]# [id number]
--- NOTE | 2019-08-28 23:04 | Progress Notes ---
DATE: 08/28/2019 SUBJECTIVE: The patient seen and examined. The patient is lying in the bed. The patient denies any chest pain, shortness of breath, palpitation, dizziness, nausea, vomiting, headache. PHYSICAL EXAMINATION: VITAL SIGNS: Temperature 97.7, pulse is 76, respiratory rate 20, blood pressure 140/70. HEENT: No facial asymmetry. NECK: Supple, no JVD. HEART: Both heart sounds are regular. CHEST AND LUNGS: Equal in expansion, no expiratory wheezing. ABDOMEN: Soft. Bowel sounds present. No palpable mass. EXTREMITIES: No edema. CLINICAL IMPRESSION: 1. Psychiatric disorder. 2. Degenerative joint disease. 3. Homelessness. 4. Chronic kidney disease. 5. Hypertension. 6. History of right knee replacement. 7. Postmenopausal. 8. Normocytic normochromic anemia. PLAN: 1. Monitor blood pressure. 2. Psych medication. 3. Psych followup. 4. General nursing care. 5. Nutritional support. 6. Continue current treatment plan as prescribed. 7. Care plan reviewed and discussed with staff. JOB# [id number]
--- NOTE | 2019-08-29 07:36 | Progress Notes ---
DATE: SUBJECTIVE: Chart reviewed and the patient interviewed. Also discussed the patient's condition with the staff and reviewed records and labs. The patient is still in a depressed mood and she is still guarded and withdrawn. The patient also is still anxious about her discharge and she is still unable to give any safe plan for her discharge or where can she go to live and today saying "I would like to go to [place] and it's a patient was recommended by my doctor outside of here and I can't remember the name of the place." The patient said that she is unable to say where she can go or what is the name of the place in [place], though that she would like to go. She also is still guarded and withdrawn and interacting minimally with others. Otherwise, the patient is compliant with taking her medications with no side effects of medications. ASSESSMENT: The patient is still depressed and is still unable to provide safe plan for self-care. TREATMENT PLAN: Continue to monitor behavior and condition closely. Also, continue adjusting psychotropic medications and work on behavioral modification and placement issue. [facility]# [id number]
[2019-08-29] MEDS: Atorvastatin Calcium 10 MG TAB PO SCH (08:13)
[2019-08-29] MEDS: Calcium Carb/Vit D 500 mg/200 U Tab PO SCH ×2 (08:13→17:21)
[2019-08-29] MEDS: Pantoprazole 40 mg EC Tab PO SCH (08:13)
--- NOTE | 2019-08-29 10:08 | Progress Notes ---
DATE: 08/29/2019 SUBJECTIVE: The patient seen and examined. The patient is lying in the bed. The patient denies any chest pain, shortness of breath, palpitation, dizziness, nausea or vomiting. The nurses' concern has been discussed. PHYSICAL EXAMINATION: VITAL SIGNS: Temperature 98, pulse is 86, respiratory rate 18, blood pressure 134/76. HEENT: Poor dentition. NECK: Supple, no JVD. HEART: Regular, no murmur. LUNGS: Clear. ABDOMEN: Soft. EXTREMITIES: No edema. NEUROLOGIC: Nonfocal. CLINICAL IMPRESSION: 1. Psychotic disorder. 2. Hyperlipidemia. 3. Hypertension. 4. Degenerative joint disease. 5. Obesity. 6. Osteoporosis. 7. Homelessness. 8. Postmenopausal. 9. Normocytic normochromic anemia. 10. History of right knee replacement. PLAN: 1. Psych medication. 2. Psych followup. 3. Fall precaution. 4. Monitor blood pressure. 5. Statin. 6. General nursing care. 7. Nutritional support. 8. Continue current treatment plan as prescribed. 9. Care plan reviewed and discussed with staff. JOB# [id number]
[2019-08-30] MEDS: Atorvastatin Calcium 10 MG TAB PO SCH (08:10)
[2019-08-30] MEDS: Pantoprazole 40 mg EC Tab PO SCH (08:11)
[2019-08-30] MEDS: Calcium Carb/Vit D 500 mg/200 U Tab PO SCH ×2 (08:11→17:00)
[2019-08-30] MEDS ORDERED: Albuterol Nebulizer 2.5mg/3mL HHN PRN (18:04)
--- NOTE | 2019-08-30 20:29 | Progress Notes ---
DATE: 08/30/2019 SUBJECTIVE: The patient seen and examined. The patient is lying in the bed, no new event. PHYSICAL EXAMINATION: VITAL SIGNS: Temperature 97.2, pulse 84, respiratory rate 18, blood pressure 158/85. HEENT: Poor dentition. NECK: Supple, no JVD. HEART: Regular, no murmur. CHEST AND LUNGS: Equal in expansion, no expiratory wheezing. ABDOMEN: Soft. EXTREMITIES: No edema. NEUROLOGIC: Nonfocal. CLINICAL IMPRESSION: 1. Psychotic disorder. 2. Hypertension. 3. Hyperlipidemia. 4. Degenerative joint disease. 5. Osteoporosis. 6. Postmenopausal. 7. Anemia of chronic disease. 8. History of right knee replacement. PLAN: 1. Psych medication. 2. Psych followup. 3. General nursing care. 4. Chronic disease management. 5. Symptoms management. 6. Medication management. 7. Follow lab. 8. Care plan reviewed and discussed with staff. JOB# [id number]
[2019-08-31] MEDS: Pantoprazole 40 mg EC Tab PO SCH (08:39)
[2019-08-31] MEDS: Atorvastatin Calcium 10 MG TAB PO SCH (08:39)
[2019-08-31] MEDS: Calcium Carb/Vit D 500 mg/200 U Tab PO SCH ×2 (08:39→16:05)
[2019-08-31] MEDS ORDERED: predniSONE 5 mg/5 mL UDC PO SCH (17:00)
[2019-08-31] MEDS: Albuterol/Ipratropium Neb 3 ML AERS HHN SCH (19:45)
--- NOTE | 2019-08-31 20:41 | Progress Notes ---
DATE: 08/31/2019 SUBJECTIVE: The patient seen and examined. The patient started to have shortness of breath and wheezing since yesterday. The patient was placed on breathing treatment. The patient is now complaining of cough. She states she does have a remote history of asthma. The patient denies any fever or chills. The patient denies any nausea, vomiting, or diarrhea. Denies any chest pain. PHYSICAL EXAMINATION: VITAL SIGNS: See nurse's note. HEENT: Poor dentition. NECK: Supple, no JVD. HEART: Both heart sounds are regular. CHEST AND LUNGS: Equal in expansion with expiratory wheezing. ABDOMEN: Soft. Bowel sounds present. No palpable mass. EXTREMITIES: No edema. NEUROLOGIC: Nonfocal. CLINICAL IMPRESSION: 1. Asthma exacerbation. 2. Degenerative joint disease. 3. Psychotic disorder. 4. History of chronic kidney disease. 5. Fall risk. 6. Homelessness. 7. Debility. 8. Decline in self-care and mobility. PLAN: The patient will be placed on p.o. Ceftin and prednisone along with nebulizer treatment to be continued 4 times a day and see how this patient does. The patient should have a chest x-ray to be done as well, which will be done tomorrow. The patient's psychiatric evaluation and management deferred to psychiatrist. We will continue to follow this patient's progress in the hospital. JOB# [id number]
[2019-09-01] MEDS: Albuterol/Ipratropium Neb 3 ML AERS HHN SCH ×4 (00:15→19:31)
[2019-09-01] MEDS: Atorvastatin Calcium 10 MG TAB PO SCH (09:10)
[2019-09-01] MEDS: Calcium Carb/Vit D 500 mg/200 U Tab PO SCH ×2 (09:11→17:33)
[2019-09-01] MEDS: Pantoprazole 40 mg EC Tab PO SCH (09:11)
--- NOTE | 2019-09-01 15:51 | Progress Notes ---
DATE: 09/01/2019 SUBJECTIVE: The patient seen and examined. The patient is lying in the bed. The patient stated that she feels better. According to the nursing staff, Ceftin is not available in the hospital. The patient denies any chest pain, shortness of breath, palpitation, dizziness, nausea or vomiting. PHYSICAL EXAMINATION: VITAL SIGNS: Temperature 97, pulse is 65, respiratory rate 18, blood pressure is 127/80. HEENT: Poor dentition. NECK: Supple, no JVD. HEART: Regular. LUNGS: Still expiratory wheezing. ABDOMEN: Soft. Bowel sounds present. No palpable masses. EXTREMITIES: No edema. CLINICAL IMPRESSION: 1. Asthma exacerbation. 2. Bronchospasm. 3. Degenerative joint disease. 4. Hypertension. 5. Fall risk. 6. Homelessness. 7. Postmenopausal. 8. History of ovarian cyst removal. 9. Psychotic disorder. PLAN: Switch p.o. Ceftin to Levaquin for now. Continue prednisone with nebulizer treatment. Continue to follow psychiatrist recommendations. General nursing care, nutritional support along with symptoms management and medication management. Care plan reviewed and discussed with staff. JOB# [id number]
--- NOTE | 2019-09-01 17:10 | Progress Notes ---
DATE: 08/30/2019 SUBJECTIVE: Chart reviewed and the patient interviewed. Also discussed the patient's condition with the staff and reviewed records and labs. The patient is still withdrawn and distant in a depressed mood. The patient also is still confused and still has disorganized thoughts and rambling. On the other hand, the patient is cooperative and compliant with taking her medications. She is still thinking that someone is around to pick her up, but at the same time, she does not know where to go and she still does not have a safe plan for self-care. ASSESSMENT: The patient is still depressed and still has no safe plan for self-care. TREATMENT PLAN: Continue Seroquel and Lexapro was increased to 10 mg every day. Also, continue trazodone, which has been helping the patient sleep slightly better. Also, continue to monitor behavior and continue to followup. JOB# [id number]
[2019-09-02] MEDS: Albuterol/Ipratropium Neb 3 ML AERS HHN SCH ×4 (00:52→18:03)
--- NOTE | 2019-09-02 02:36 | Psych Progress Note ---
Psych Progress Note - Intro Date of Progress Note: 08/31/19 - Assessment Assessment: Patient interviewed, case discussed with staff, chart and records were reviewed. Den is depressed isolating to her room. She is superficially smiling stating "I'm leaving today." When asked where she will be going she is not able to state a plan "oh they're figuring it out, you know." She isolates to room, she is withdrawn, she is medication adherent with no side effects noted. - Vitals, I&O Vitals: Vital Signs - 24 hr 09/01/19 09/01/19 09/01/19 06:17 14:00 20:00 Temp 97.7 F 97.9 F HR 65 77 RR 18 18 20 BP 127/80 133/84 O2 Sat % 93 98 09/01/19 20:32 Temp 97.8 F HR 80 RR 20 BP 134/91 O2 Sat % 97 - Objective Psych Objective: in room, poorly cooperative, depressed, inappropriate affect, concrete thinking , MARK SI/HI/AH/VH due to being guarded. A&O x 1 insight is poor. - Plan Plan: cont med titration. - Review of Relevant Data Review of Relevant Data: I have reviewed the following items and time salvador (where applicable) has been applied. - Medications Current Medications: Current Medications Albuterol/Ipratropium (Duoneb Neb) 3 ml HHN Q6HRT [facility] Stop: 10/30/19 18:59 Last Admin: 09/02/19 00:52 Dose: 3 ml Albuterol/Ipratropium (Duoneb Neb) 3 ml HHN Q2HRT PRN PRN Reason: Wheezing Stop: 10/30/19 15:48 Aspirin (Ecotrin) 81 mg PO DAILY [facility] Stop: 10/20/19 08:59 Last Admin: 09/01/19 09:10 Dose: 81 mg Atorvastatin Calcium (Lipitor) 10 mg PO DAILY [facility]; Protocol Stop: 10/19/19 09:59 Last Admin: 09/01/19 09:10 Dose: 10 mg Calcium/Vitamin D (Oscal W/Vitamin D) 1 tab PO BID [facility] Stop: 10/19/19 16:59 Last Admin: 09/01/19 17:33 Dose: 1 tab Escitalopram Oxalate (Lexapro) 10 mg PO DAILY [facility]; Protocol Stop: 10/27/19 08:59 Last Admin: 09/01/19 09:11 Dose: 10 mg Levofloxacin (Levaquin) 500 mg PO DAILY [facility] Stop: 09/10/19 09:01 Last Admin: 09/01/19 11:15 Dose: 500 mg Lorazepam (Ativan) 0.5 mg PO Q4HR PRN; Protocol PRN Reason: Anxiety Stop: 10/29/19 10:48 Pantoprazole Sodium (Protonix) 40 mg PO DAILY [facility] Stop: 10/20/19 08:59 Last Admin: 09/01/19 09:11 Dose: 40 mg Prednisone (Deltasone) 20 mg PO BID [facility] Stop: 09/04/19 16:59 Last Admin: 09/01/19 17:33 Dose: Not Given Quetiapine Fumarate (Seroquel) 300 mg PO HS [facility]; Protocol Stop: 10/19/19 20:59 Last Admin: 09/01/19 20:44 Dose: 300 mg Quetiapine Fumarate (Seroquel) 25 mg PO DAILY [facility]; Protocol Stop: 10/19/19 08:59 Last Admin: 09/01/19 09:11 Dose: 25 mg Trazodone HCl (Desyrel) 100 mg PO HS [facility]; Protocol Stop: 10/19/19 20:59 Last Admin: 09/01/19 20:44 Dose: 100 mg Zolpidem Tartrate (Ambien) 5 mg PO HS PRN PRN Reason: Insomnia Stop: 10/29/19 10:50
--- NOTE | 2019-09-02 02:37 | Psych Progress Note ---
Psych Progress Note - Intro Date of Progress Note: 09/01/19 - Assessment Assessment: Patient interviewed, case discussed with staff, chart and records were reviewed. Patient remains isolated to her room. She is calm but withdrawn. Not leaving her room. Not socializing. no side effects noted to meds. She has no plan for care at all. - Vitals, I&O Vitals: Vital Signs - 24 hr 09/01/19 09/01/19 09/01/19 06:17 14:00 20:00 Temp 97.7 F 97.9 F HR 65 77 RR 18 18 20 BP 127/80 133/84 O2 Sat % 93 98 09/01/19 20:32 Temp 97.8 F HR 80 RR 20 BP 134/91 O2 Sat % 97 - Objective Psych Objective: in room, poorly cooperative, depressed, inappropriate affect, concrete thinking , MARK SI/HI/AH/VH due to being guarded. A&O x 1 insight is poor. - Plan Plan: cont med titration. - Review of Relevant Data Review of Relevant Data: I have reviewed the following items and time salvador (where applicable) has been applied. - Medications Current Medications: Current Medications Albuterol/Ipratropium (Duoneb Neb) 3 ml HHN Q6HRT [facility] Stop: 10/30/19 18:59 Last Admin: 09/02/19 00:52 Dose: 3 ml Albuterol/Ipratropium (Duoneb Neb) 3 ml HHN Q2HRT PRN PRN Reason: Wheezing Stop: 10/30/19 15:48 Aspirin (Ecotrin) 81 mg PO DAILY [facility] Stop: 10/20/19 08:59 Last Admin: 09/01/19 09:10 Dose: 81 mg Atorvastatin Calcium (Lipitor) 10 mg PO DAILY [facility]; Protocol Stop: 10/19/19 09:59 Last Admin: 09/01/19 09:10 Dose: 10 mg Calcium/Vitamin D (Oscal W/Vitamin D) 1 tab PO BID [facility] Stop: 10/19/19 16:59 Last Admin: 09/01/19 17:33 Dose: 1 tab Escitalopram Oxalate (Lexapro) 10 mg PO DAILY [facility]; Protocol Stop: 10/27/19 08:59 Last Admin: 09/01/19 09:11 Dose: 10 mg Levofloxacin (Levaquin) 500 mg PO DAILY [facility] Stop: 09/10/19 09:01 Last Admin: 09/01/19 11:15 Dose: 500 mg Lorazepam (Ativan) 0.5 mg PO Q4HR PRN; Protocol PRN Reason: Anxiety Stop: 10/29/19 10:48 Pantoprazole Sodium (Protonix) 40 mg PO DAILY [facility] Stop: 10/20/19 08:59 Last Admin: 09/01/19 09:11 Dose: 40 mg Prednisone (Deltasone) 20 mg PO BID [facility] Stop: 09/04/19 16:59 Last Admin: 09/01/19 17:33 Dose: Not Given Quetiapine Fumarate (Seroquel) 300 mg PO HS [facility]; Protocol Stop: 10/19/19 20:59 Last Admin: 09/01/19 20:44 Dose: 300 mg Quetiapine Fumarate (Seroquel) 25 mg PO DAILY [facility]; Protocol Stop: 10/19/19 08:59 Last Admin: 09/01/19 09:11 Dose: 25 mg Trazodone HCl (Desyrel) 100 mg PO HS [facility]; Protocol Stop: 10/19/19 20:59 Last Admin: 09/01/19 20:44 Dose: 100 mg Zolpidem Tartrate (Ambien) 5 mg PO HS PRN PRN Reason: Insomnia Stop: 10/29/19 10:50
[2019-09-02] MEDS: Calcium Carb/Vit D 500 mg/200 U Tab PO SCH ×2 (08:57→17:49)
[2019-09-02] MEDS: Atorvastatin Calcium 10 MG TAB PO SCH (08:57)
[2019-09-02] MEDS: Pantoprazole 40 mg EC Tab PO SCH (08:57)
--- NOTE | 2019-09-02 19:22 | Progress Notes ---
DATE: 09/02/2019 A 63-year-old female. SUBJECTIVE: The patient seen and examined. The patient is lying in the bed. The patient still coughs and feel congested as well, currently on breathing treatment with p.o. Levaquin. PHYSICAL EXAMINATION: VITAL SIGNS: Temperature 97.9, pulse is 81, respiratory rate 20, blood pressure is 149/89. HEENT: Poor dentition. NECK: Supple, no JVD. HEART: Regular. CHEST AND LUNGS: Equal in expansion with mild expiratory wheezing. ABDOMEN: Soft. Bowel sounds are present. No palpable mass. EXTREMITIES: No edema. CLINICAL IMPRESSION: 1. Asthma exacerbation. 2. Cough. 3. Bronchospasm. 4. Hypertension. 5. Degenerative joint disease. 6. Fall risk. 7. Psychiatric disorder. PLAN: Provide Robitussin-DM along with antibiotic and breathing treatment. Complete the course of prednisone. Continue to follow psychiatrist recommendation. We will continue to provide fall precautions, general nursing care as well. Care plan reviewed and discussed with staff. JOB# [id number]
--- NOTE | 2019-09-02 21:06 | Progress Notes ---
DATE: 09/02/2019 SUBJECTIVE: The patient is isolative in the room, calm, withdrawn, noted to be in the hospital, admitted on 08/19/2019. The patient was homeless and confused. Per [facility], possible placement to [facility]. Per nursing staff, the patient remains still symptomatic, still gets upset at times, had been wandering the streets. History of schizophrenia, minimally interactive. Unable to really get a lot of information from the patient. Dr. Bennett has the patient on Seroquel, Lexapro. We will continue to monitor. The patient is calm right now, minimally interactive and withdrawn. JOB# [id number]
[2019-09-03] MEDS: Albuterol/Ipratropium Neb 3 ML AERS HHN SCH ×4 (01:12→19:17)
[2019-09-03] MEDS: Calcium Carb/Vit D 500 mg/200 U Tab PO SCH ×2 (08:33→17:14)
[2019-09-03] MEDS: Atorvastatin Calcium 10 MG TAB PO SCH (08:33)
[2019-09-03] MEDS: Pantoprazole 40 mg EC Tab PO SCH (08:33)
[2019-09-03] MEDS: Guaifenesin DM 10 ML UDC PO PRN ×2 (09:27→22:05)
--- NOTE | 2019-09-03 11:31 | Progress Notes ---
DATE: 09/03/2019 IDENTIFICATION: This is a 63-year-old female. SUBJECTIVE: The patient seen and examined. The patient is lying in the bed. No new event. The patient is still coughing. PHYSICAL EXAMINATION: VITAL SIGNS: See nurse's note. HEENT: Poor dentition. NECK: Supple. No JVD. HEART: Regular. LUNGS: Has expiratory wheezing. ABDOMEN: Soft. Bowel sounds present. No palpable masses. EXTREMITIES: No edema. MEDICATIONS: Admission record is reviewed. CLINICAL IMPRESSION: 1. Asthma exacerbation. 2. Hypertension. 3. Degenerative joint disease. 4. Fall risk. 5. Psychiatric disorder. PLAN: 1. Continue to provide oxygen. 2. Nebulizer treatment. 3. Steroid. 4. Antibiotic. 5. Symptoms management. 6. Monitor blood pressure. 7. General nursing care. 8. Psych followup. 9. Care plan reviewed and discussed with staff. JOB# [id number]
--- NOTE | 2019-09-03 20:47 | Progress Notes ---
DATE: 09/03/2019 SUBJECTIVE: Chart reviewed and the patient interviewed. Also discussed the patient's condition with the staff and reviewed records and labs. The patient is still in a depressed mood and she is still anxious. The patient also still unable to provide any safe plan for self-care and she is still unable to come up with safe plan for discharge or placement issue. She also is still guarded and she still has mood swings at times. She is still talking about placement in places that is not allergic and is not sure if this can be practical for her. On the other hand, the patient continued to comply with taking her medications with no side effects of medications. ASSESSMENT: The patient is still anxious and confused and unable to provide safe plan for self-care. TREATMENT PLAN: Continue to monitor behavior and condition closely. Also, continue to work on discharge plans and on placement issue and continue to follow up. [facility]# [id number]
[2019-09-04] MEDS: Albuterol/Ipratropium Neb 3 ML AERS HHN SCH ×3 (00:18→13:17)
[2019-09-04] MEDS: Atorvastatin Calcium 10 MG TAB PO SCH (08:54)
[2019-09-04] MEDS: Calcium Carb/Vit D 500 mg/200 U Tab PO SCH ×2 (08:55→16:49)
[2019-09-04] MEDS: Pantoprazole 40 mg EC Tab PO SCH (08:55)
[2019-09-04] MEDS ORDERED: Probiotic Screen MC PRN (10:33)
--- NOTE | 2019-09-04 10:55 | Progress Notes ---
DATE: 09/04/2019 SUBJECTIVE: The patient seen and examined. The patient is lying in the bed. The patient stated cough is slowly improving. The patient currently denies any chest pain, no nausea or vomiting. PHYSICAL EXAMINATION: VITAL SIGNS: Temperature 98, pulse is 68, respiratory rate 18, blood pressure 122/74. HEENT: Poor dentition. NECK: Supple, no JVD. HEART: Regular. CHEST: Lung equal in expansion with decreased expiratory wheezing. ABDOMEN: Soft. Bowel sounds present. No palpable masses. EXTREMITIES: No edema. CLINICAL IMPRESSION: 1. Asthma exacerbation. 2. Hypertension. 3. Cerebrovascular accident prophylaxis. 4. Degenerative joint disease. 5. Psychotic disorder. 6. Homelessness. PLAN: 1. Continue antibiotic. 2. Breathing treatment. 3. Symptoms management. 4. Psych medication. 5. Psych followup. 6. Statin. 7. PT, OT. 8. Care plan reviewed and discussed with staff. JOB# [id number]
[2019-09-04] MEDS: Albuterol/Ipratropium Neb 3 ML AERS HHN PRN (21:51)
[2019-09-04] MEDS: Guaifenesin DM 10 ML UDC PO PRN (21:51)
--- NOTE | 2019-09-04 23:23 | Progress Notes ---
DATE: 09/04/2019 PSYCHIATRIC PROGRESS NOTE SUBJECTIVE: Chart was reviewed and the patient interviewed. Also discussed the patient's condition with the staff and reviewed records and labs. The patient is still in a depressed mood and the patient is still anxious. The patient also is still withdrawn and interacting minimally with others. She also has better insight and she has better understanding that she needs placement and cannot live in the streets and cannot live where she was living before. Otherwise, the patient is cooperative and is calm and socializing slightly more. She also has been compliant with taking her medications. ASSESSMENT: The patient is still depressed and still needs placement. TREATMENT PLAN: Continue Seroquel and Lexapro same dose. Also, continue adjusting medications and work on her ineffective coping. Also waiting for [facility] or case assembler to tell about placement for the patient and where she can go. We will try to get in touch with the engineering manager electronics of [facility] to see if she will be accepted there. JOB# [id number]
[2019-09-05] MEDS: Albuterol/Ipratropium Neb 3 ML AERS HHN SCH ×4 (01:15→19:26)
[2019-09-05] MEDS: Atorvastatin Calcium 10 MG TAB PO SCH (08:41)
[2019-09-05] MEDS: Calcium Carb/Vit D 500 mg/200 U Tab PO SCH ×2 (08:41→16:40)
[2019-09-05] MEDS: Lactobacillus Rhamnosus GG 15 Billion CFU CAP.SPRINK PO SCH (08:42)
[2019-09-05] MEDS: Pantoprazole 40 mg EC Tab PO SCH (08:45)
[2019-09-05] MEDS: Albuterol/Ipratropium Neb 3 ML AERS HHN PRN (10:24)
--- NOTE | 2019-09-05 21:27 | Progress Notes ---
DATE: 09/05/2019 SUBJECTIVE: Chart reviewed and the patient interviewed. Also discussed the patient's condition with the staff and reviewed records and labs. The patient's affect is brighter. The patient seems to be less depressed and also is trying to interact more with peers and with others. She also is easier to follow directions. The patient also denies any side effects of medications. Otherwise, the patient is compliant with taking medications, but waiting for placement. ASSESSMENT: The patient seems to be less depressed and less psychotic. TREATMENT PLAN: Continue to monitor behavior and condition closely. Also, continue adjusting medications and also working on discharge plans and placement issue and waiting for [facility] to give a response to placement there. JOB# [id number]
[2019-09-06] MEDS: Albuterol/Ipratropium Neb 3 ML AERS HHN SCH ×5 (01:06→19:00)
[2019-09-06] MEDS: Lactobacillus Rhamnosus GG 15 Billion CFU CAP.SPRINK PO SCH (08:42)
[2019-09-06] MEDS: Calcium Carb/Vit D 500 mg/200 U Tab PO SCH ×2 (08:44→17:08)
[2019-09-06] MEDS: Atorvastatin Calcium 10 MG TAB PO SCH (08:44)
[2019-09-06] MEDS: Pantoprazole 40 mg EC Tab PO SCH (08:44)
--- NOTE | 2019-09-06 14:10 | Progress Notes ---
DATE: 09/06/2019 SUBJECTIVE: The patient was seen and examined. The patient is lying in the bed. The patient denies any chest pain, shortness of breath, palpitation, dizziness, nausea, or vomiting. PHYSICAL EXAMINATION: VITAL SIGNS: Temperature 97.5, pulse is 77, respiratory rate 18, and blood pressure 136/75. HEENT: No facial asymmetry. NECK: Supple, no JVD. HEART: Regular. LUNGS: Clear. ABDOMEN: Soft. EXTREMITIES: No edema. CLINICAL IMPRESSION: 1. Asthma exacerbation, improving. 2. Hypertension. 3. Hyperlipidemia. 4. Psychotic disorder. 5. Degenerative joint disease. 6. Homelessness. PLAN: 1. Continue to provide oxygen. 2. Nebulizer treatment. 3. Symptoms management. 4. Monitor blood pressure. 5. Statin. 6. General nursing care. 7. Psych medication and psych followup. 8. Care plan reviewed and discussed with the staff. JOB# [id number]
--- NOTE | 2019-09-06 18:56 | Progress Notes ---
DATE: 09/06/2019 SUBJECTIVE: Chart was reviewed and the patient interviewed. Also discussed the patient's condition with the staff and reviewed records and labs. The patient is still withdrawn and still seems to be in a depressed mood. The patient also is interacting minimally with others. She is cooperative with her treatment, but she is still guarded in regard to her feelings. She has no major behavioral problems, but she is still depressed and still unable to provide safe plan for self care. ASSESSMENT: The patient is still depressed and also looking for placement. TREATMENT PLAN: Continue to monitor behavior and condition closely. Also waiting for pillowcase sewer to find placement for the patient and waiting to hear from [facility] in regard to placement issue. JOB# [id number]
[2019-09-07] MEDS: Albuterol/Ipratropium Neb 3 ML AERS HHN SCH ×4 (01:00→17:59)
[2019-09-07] MEDS: Pantoprazole 40 mg EC Tab PO SCH (08:43)
[2019-09-07] MEDS: Atorvastatin Calcium 10 MG TAB PO SCH (08:43)
[2019-09-07] MEDS: Lactobacillus Rhamnosus GG 15 Billion CFU CAP.SPRINK PO SCH (08:46)
[2019-09-07] MEDS: Calcium Carb/Vit D 500 mg/200 U Tab PO SCH ×2 (09:02→17:27)
--- NOTE | 2019-09-07 15:18 | Progress Notes ---
DATE: 09/07/2019 Case was discussed with staff of the patient, reviewed records. This is a 63-year-old female who was admitted on 08/19/2019 on a hold after the patient was evaluated at [facility] Emergency Room. She said that she was not able to walk without her crutches. The patient does not have any crutches with her. The patient also said that she is homeless and she is not able to tell where she is exactly staying. Unable to state a safe plan for self-care, unable to say when last time she ate and who is taking care of her, where she has been living. She is considered gravely disabled. The patient continues to be confused, unpredictable, impulsive, needing redirection, depressed. She is guarded to how she feel. She has no major behavior problems. She is still depressed, overwhelmed. No side effects with the medication, no sedation, no nausea, no extrapyramidal symptoms. We will continue to work with the patient in group therapy, milieu therapy, adjust the medication as needed. JOB# [id number] JUMANA
--- NOTE | 2019-09-07 15:51 | Progress Notes ---
DATE: 09/07/2019 SUBJECTIVE: The patient was seen and examined. The patient is lying in the bed. No new event. The patient currently stated that she is feeling a little bit better. PHYSICAL EXAMINATION: On today's exam, VITAL SIGNS: See nurse's note. HEENT: No facial asymmetry. Poor dentition. NECK: Supple, no JVD. HEART: Regular. CHEST AND LUNGS: Equal in expansion with no expiratory wheezing. ABDOMEN: Soft. Bowel sounds noted. Bowel sounds are present. No palpable mass. EXTREMITIES: No edema. NEUROLOGIC: Alert, awake, and following command. Decreased power throughout the upper and lower extremity. CLINICAL IMPRESSION: 1. Asthma exacerbation. 2. Hypertension. 3. Chronic kidney disease. 4. Psychotic disorder. 5. Degenerative joint disease. 6. High risk for fall. PLAN: 1. Continue current medicine as prescribed. 2. Antihypertensive medicine. 3. Statin. 4. General nursing care. 5. Follow lab. 6. Chronic disease management. 7. Care plan reviewed and discussed with staff. JOB# [id number]
[2019-09-08] MEDS: Albuterol/Ipratropium Neb 3 ML AERS HHN SCH ×4 (01:55→20:00)
[2019-09-08] MEDS: Pantoprazole 40 mg EC Tab PO SCH (09:00)
[2019-09-08] MEDS: Atorvastatin Calcium 10 MG TAB PO SCH (09:00)
[2019-09-08] MEDS: Calcium Carb/Vit D 500 mg/200 U Tab PO SCH ×2 (09:01→16:29)
[2019-09-08] MEDS: Lactobacillus Rhamnosus GG 15 Billion CFU CAP.SPRINK PO SCH (09:01)
--- NOTE | 2019-09-08 15:47 | Progress Notes ---
DATE: 09/08/2019 Case was discussed with staff of the patient, reviewed records. The patient continues to be unpredictable, impulsive, continues to stay in bed, isolating herself. Continues to have poor insight can;t formulate a safe plan for self- care, confused. No behavior issues at this time, still depressed, overwhelmed. No side effects with the medication, no sedation, no nausea, no extrapyramidal symptoms. We will continue the patient in group therapy, milieu therapy, adjust medication as needed. JOB# [id number] MTDD
[2019-09-09] MEDS: Albuterol/Ipratropium Neb 3 ML AERS HHN SCH ×4 (01:14→20:00)
[2019-09-09] MEDS: Lactobacillus Rhamnosus GG 15 Billion CFU CAP.SPRINK PO SCH (08:14)
[2019-09-09] MEDS: Calcium Carb/Vit D 500 mg/200 U Tab PO SCH ×2 (08:14→17:45)
[2019-09-09] MEDS: Pantoprazole 40 mg EC Tab PO SCH (08:14)
[2019-09-09] MEDS: Atorvastatin Calcium 10 MG TAB PO SCH (08:14)
--- NOTE | 2019-09-09 21:28 | Progress Notes ---
DATE: SUBJECTIVE: Chart reviewed and the patient interviewed. Also discussed the patient's condition with the staff and reviewed records and labs. The patient is still anxious and depressed and she is eager about what is going to be her discharge plans. The patient also is interacting minimally with others, but at the same time, no major behavior problems. She still has low energy and lack of motivations and still feeling hopeless and helpless. Otherwise, the patient is compliant with taking medications with no side effects of medications. ASSESSMENT: The patient is still depressed and still waiting for placement. TREATMENT PLAN: Still waiting for foster care case manager to help with placement issue. Also, continue to work on the patient's depression and her ineffective coping as well as adjusting medications. [facility]# [id number]
--- NOTE | 2019-09-09 21:42 | Progress Notes ---
DATE: 09/09/2019 SUBJECTIVE: The patient seen and examined. The patient is lying in the bed. The patient has no new complaint. PHYSICAL EXAMINATION: VITAL SIGNS: Temperature 97.3, pulse 78, respiratory rate 18, blood pressure 138/76. HEENT: Poor dentition. NECK: Supple, no JVD. HEART: Regular. LUNGS: Mild expiratory wheezing. ABDOMEN: Soft. Bowel sounds present. No palpable mass. EXTREMITIES: No edema. CLINICAL IMPRESSION: 1. Asthma exacerbation, improving. 2. Hypertension. 3. Hyperlipidemia. 4. Chronic kidney disease. 5. Psychotic disorder. 6. Degenerative joint disease. 7. Fall risk. 8. Debility. PLAN: 1. Continue current medicine as prescribed. 2. Monitor blood pressure. 3. Statin and antihypertensive medicine. 4. General nursing care. 5. Continue current treatment plan as prescribed. 6. Care plan reviewed and discussed with staff. JOB# [id number]
[2019-09-10] MEDS: Albuterol/Ipratropium Neb 3 ML AERS HHN SCH ×4 (01:35→18:59)
[2019-09-10] MEDS: Lactobacillus Rhamnosus GG 15 Billion CFU CAP.SPRINK PO SCH (09:04)
[2019-09-10] MEDS: Calcium Carb/Vit D 500 mg/200 U Tab PO SCH ×2 (09:04→17:07)
[2019-09-10] MEDS: Atorvastatin Calcium 10 MG TAB PO SCH (09:04)
[2019-09-10] MEDS: Pantoprazole 40 mg EC Tab PO SCH (09:05)
[2019-09-10] MEDS: Albuterol/Ipratropium Neb 3 ML AERS HHN PRN ×2 (09:24→14:37)
--- NOTE | 2019-09-10 09:44 | Progress Notes ---
DATE: 09/10/2019 SUBJECTIVE: The patient was seen and examined. The patient is lying in the bed, no new complaint. PHYSICAL EXAMINATION: VITAL SIGNS: Temperature 97.8, pulse 69, respiratory rate 18, blood pressure 130/75. HEENT: No facial asymmetry. Poor dentition noted. NECK: Supple, no JVD. HEART: Regular. CHEST AND LUNGS: Equal in expansion with mild occasional expiratory wheezing. ABDOMEN: Soft. Bowel sounds present. No palpable mass. EXTREMITIES: No edema. MAR reviewed. CLINICAL IMPRESSION: 1. Asthma exacerbation. 2. Hypertension. 3. Hyperlipidemia. 4. Degenerative joint disease. 5. Psychiatric disorder. 6. Chronic kidney disease. 7. Fall precautions. PLAN: 1. Continue to provide nebulizer treatment. 2. Aspirin. 3. Statin. 4. Symptoms management. 5. Medication management. 6. Probiotic. 7. Psychiatric medication. 8. We will continue to follow this patient during the stay in the hospital. JOB# [id number]
--- NOTE | 2019-09-10 19:06 | Progress Notes ---
DATE: 09/10/2019 SUBJECTIVE: Chart reviewed and the patient interviewed. Also discussed the patient's condition with the staff and reviewed records and labs. The patient is still in a depressed mood, but her affect is brighter. The patient still has questions about her discharge plans and case management specialist still did not give an answer to where she can go. She also is still interacting minimally with others. The patient denies any hallucinations or delusions and she denies any intention to harm herself or others. ASSESSMENT: The patient is still depressed and waiting for placement. TREATMENT PLAN: Continue to monitor her behavior and her condition closely. Also, working on discharge plans and placement issue. JOB# [id number]
[2019-09-11] MEDS: Albuterol/Ipratropium Neb 3 ML AERS HHN SCH ×4 (01:05→18:00)
--- NOTE | 2019-09-11 07:13 | Progress Notes ---
DATE: 09/11/2019 SUBJECTIVE: Chart was reviewed and the patient interviewed. Discussed the patient's condition with the staff and reviewed records and labs. The patient is still in irritable and angry mood for being in the hospital for a while, but the patient is exhibiting no major behavioral problems. She is still depressed and withdrawn. The patient also is guarded in regard to her feelings and her depression. Otherwise, the patient is sleeping well and she has fair appetite. She is also interacting more with peers and with others. ASSESSMENT: The patient is still depressed, but no behavioral problems and not suicidal. TREATMENT PLAN: Continue to monitor behavior and condition. Also, continue to work on her discharge plans and followup. JOB# [id number]
[2019-09-11] MEDS: Lactobacillus Rhamnosus GG 15 Billion CFU CAP.SPRINK PO SCH (09:14)
[2019-09-11] MEDS: Calcium Carb/Vit D 500 mg/200 U Tab PO SCH ×2 (09:14→18:00)
[2019-09-11] MEDS: Atorvastatin Calcium 10 MG TAB PO SCH (09:15)
[2019-09-11] MEDS: Pantoprazole 40 mg EC Tab PO SCH (09:15)
--- NOTE | 2019-09-11 19:13 | Progress Notes ---
DATE: 09/11/2019 SUBJECTIVE: The patient seen and examined. The patient is lying in the bed, no new complaint. Psychiatrist's note reviewed and discussed with nursing staff about their concerns and treatment plan. PHYSICAL EXAMINATION: VITAL SIGNS: Temperature 97.5, pulse 75, respiratory rate 20, blood pressure 134/78. HEENT: No facial asymmetry. NECK: Supple, no JVD. HEART: Regular. LUNGS: Mild expiratory wheezing. ABDOMEN: Soft. Bowel sounds are present. No palpable mass. EXTREMITIES: No edema. CLINICAL IMPRESSION: 1. Asthma exacerbation, improved. 2. Hypertension. 3. Hyperlipidemia. 4. Chronic kidney disease stage 3. 5. Degenerative joint disease. 6. Obesity. 7. Postmenopausal. 8. Fall risk. PLAN: Continue to provide current medication as prescribed. Monitor blood pressure and provide fall precautions, general nursing care, nutritional support, symptoms management and medication management. Care plan reviewed and discussed with staff. JOB# [id number]
[2019-09-12] MEDS: Albuterol/Ipratropium Neb 3 ML AERS HHN SCH ×4 (00:23→18:00)
--- NOTE | 2019-09-12 07:19 | Progress Notes ---
DATE: 09/12/2019 SUBJECTIVE: Chart was reviewed and the patient interviewed. Also discussed the patient's condition with the staff and reviewed records and labs. The patient is still in a depressed mood. The patient also is withdrawn and interacting minimally with peers and with others. The patient also is still feeling hopeless, especially that she is not sure where she is going to live. I have no information from social service agency director. At the same time, I called yesterday [facility] myself and I spoke to "Silvia" who I informed her about the patient need for discharge and she is going to discuss with the skip loader of the facility and let us know. If approved to go there, I will discharge the patient today. At the same time, we will continue current medications and current treatment and followup. JOB# [id number]
[2019-09-12] MEDS: Pantoprazole 40 mg EC Tab PO SCH (09:15)
[2019-09-12] MEDS: Atorvastatin Calcium 10 MG TAB PO SCH (09:15)
[2019-09-12] MEDS: Calcium Carb/Vit D 500 mg/200 U Tab PO SCH ×2 (09:16→17:57)
[2019-09-12] MEDS: Lactobacillus Rhamnosus GG 15 Billion CFU CAP.SPRINK PO SCH (09:16)
--- NOTE | 2019-09-12 21:14 | Progress Notes ---
DATE: 09/12/2019 SUBJECTIVE: The patient seen and examined. Discussed with the patient's nurse about the treatment plan. The patient has no new complaint. The patient denies any chest pain or increasing shortness of breath. PHYSICAL EXAMINATION: VITAL SIGNS: Temperature 98.2, pulse 74, respiratory rate 20, blood pressure 126/73. HEENT: No facial asymmetry. NECK: Supple, no JVD. HEART: Regular. LUNGS: Occasional expiratory wheezing. ABDOMEN: Soft, protuberant. No guarding, no rigidity. Bowel sounds present. No palpable mass. EXTREMITIES: No edema. NEUROLOGIC: Nonfocal. CLINICAL IMPRESSION: 1. Bronchial asthma, stable. 2. Hypertension. 3. Hyperlipidemia. 4. Psychotic disorder. 5. Degenerative joint disease. 6. Homelessness. PLAN: 1. Continue to provide p.r.n. oxygen. 2. Nebulizer treatment. 3. Symptoms management. 4. Monitor blood pressure. 5. Statin. 6. General nursing care. 7. Psych followup. 8. Psych medication. 9. Nutritional support. 10. Care plan has been discussed with staff. JOB# [id number]
[2019-09-12] MEDS: Albuterol/Ipratropium Neb 3 ML AERS HHN PRN (23:03)
[2019-09-13] MEDS: Albuterol/Ipratropium Neb 3 ML AERS HHN SCH ×4 (01:22→20:00)
[2019-09-13] MEDS: Atorvastatin Calcium 10 MG TAB PO SCH (08:18)
[2019-09-13] MEDS: Pantoprazole 40 mg EC Tab PO SCH (08:20)
[2019-09-13] MEDS: Calcium Carb/Vit D 500 mg/200 U Tab PO SCH ×2 (08:20→16:41)
[2019-09-13] MEDS: Lactobacillus Rhamnosus GG 15 Billion CFU CAP.SPRINK PO SCH (08:20)
--- NOTE | 2019-09-13 19:49 | Progress Notes ---
DATE: 09/13/2019 SUBJECTIVE: The patient seen and examined. The patient is lying in the bed. The patient denies any chest pain, abdominal pain, nausea, vomiting, headache. The patient's cough is much better. Discussed with nursing staff about the patient's concerns. PHYSICAL EXAMINATION: VITAL SIGNS: Temperature 98.6, pulse is 66, respiratory rate is 18, blood pressure 132/74. HEENT: No facial asymmetry. Poor dentition noted. NECK: Supple, no JVD. HEART: Regular. CHEST: Lung equal in expansion with no expiratory wheezing. ABDOMEN: Soft, no guarding, no rigidity. Bowel sounds are present. No palpable mass. EXTREMITIES: No edema, no cyanosis, no clubbing. NEUROLOGIC: Nonfocal. MEDICATIONS: Admission record reviewed. CLINICAL IMPRESSION: 1. Bronchial asthma, stable. 2. Hypertension. 3. Hyperlipidemia. 4. Chronic kidney disease. 5. Psychiatric disorder. 6. Degenerative joint disease. 7. Homeless. PLAN: 1. Continue to provide p.r.n. oxygen. 2. P.r.n. nebulizer treatment. 3. Statin. 4. Monitor blood pressure. 5. Psych followup. 6. General nursing care. 7. Nutritional support. 8. Fall precautions. 9. Care plan reviewed and discussed with staff. JOB# [id number]
[2019-09-13] MEDS: Albuterol/Ipratropium Neb 3 ML AERS HHN PRN (23:51)
[2019-09-14] MEDS: Albuterol/Ipratropium Neb 3 ML AERS HHN SCH ×4 (01:00→19:48)
--- NOTE | 2019-09-14 01:54 | Progress Notes ---
DATE: 09/13/2019 FOLLOWUP PROGRESS NOTE Case was discussed with staff of the patient, reviewed records. The patient continues to ____. She is well known case to me and seen her before covering for Dr. Bennett. The patient continues to stay in bed, interacting poorly with staff and peers. Continues to be unpredictable, impulsive, continues to be depressed, hopeless, not happy with having to go to live somewhere else, waiting on placement. The patient is sleeping better, eating better. No side effects with the medication, no sedation, no nausea and Dr. Bennett made calls for placement at [facility]. We will continue to work with the patient in group therapy, milieu therapy, and adjust the medications as needed. JOB# [id number]
[2019-09-14] MEDS: Pantoprazole 40 mg EC Tab PO SCH (08:36)
[2019-09-14] MEDS: Atorvastatin Calcium 10 MG TAB PO SCH (08:36)
[2019-09-14] MEDS: Calcium Carb/Vit D 500 mg/200 U Tab PO SCH ×2 (08:36→16:20)
[2019-09-14] MEDS: Lactobacillus Rhamnosus GG 15 Billion CFU CAP.SPRINK PO SCH (08:36)
--- NOTE | 2019-09-15 00:22 | Progress Notes ---
DATE: 09/14/[address] Bennett. SUBJECTIVE: The patient was seen and evaluated. The patient's chart reviewed. Today on bpkj-xm-pvec evaluation, she is a 63-year-old female, initially brought in here after the patient was found disorganized, gravely disabled. According to covering physician yesterday, the patient was found to be isolative, withdrawn and uncooperative. Today on nycb-fo-mnct evaluation, the patient reports "well I'm here, get me out of here." When attempting to validate her emotions about what led to the hospitalization, she just shrugged her shoulders and saying she has become ____ helpless and depressed. ASSESSMENT AND PLAN: History of schizoaffective disorder, who is tolerating the current medications well without complications. We will continue with primary psychiatrist's treatment plan and goals. We will continue with the following medications as on reconciliation medications were reviewed, which include Lexapro 10 mg a day, Seroquel 25 p.o. daily, Seroquel 300 mg at nighttime. JOB# [id number]
[2019-09-15] MEDS: Albuterol/Ipratropium Neb 3 ML AERS HHN SCH ×4 (01:00→18:26)
[2019-09-15] MEDS: Lactobacillus Rhamnosus GG 15 Billion CFU CAP.SPRINK PO SCH (09:23)
[2019-09-15] MEDS: Pantoprazole 40 mg EC Tab PO SCH (09:23)
[2019-09-15] MEDS: Atorvastatin Calcium 10 MG TAB PO SCH (09:23)
[2019-09-15] MEDS: Calcium Carb/Vit D 500 mg/200 U Tab PO SCH ×2 (09:23→16:33)
[2019-09-15] MEDS: Albuterol/Ipratropium Neb 3 ML AERS HHN PRN ×2 (10:14→22:13)
[2019-09-16] MEDS: Albuterol/Ipratropium Neb 3 ML AERS HHN SCH ×3 (01:00→13:00)
--- NOTE | 2019-09-16 01:05 | Progress Notes ---
DATE: 09/15/2019 SUBJECTIVE: The patient was seen and evaluated. The patient's chart was reviewed. Today on zqdb-vw-lcye evaluation, the patient denies any complications or side effects of the medication. The patient reports a fair sleep overnight. MENTAL STATUS EXAMINATION: Mildly disorganized and is irritable. ASSESSMENT AND PLAN: Schizoaffective disorder, tolerating medications well. Some mild irritability that continues to persist. Medication reconciliation reviewed. We will continue with the current medication regimen as she continues to reach steady state. We will continue working very closely with the mental case resolution specialist for a placement once the patient is further psychiatrically stabilized. JOB# [id number]
[2019-09-16] MEDS: Albuterol/Ipratropium Neb 3 ML AERS HHN PRN ×2 (04:25→13:34)
[2019-09-16] MEDS: Pantoprazole 40 mg EC Tab PO SCH (08:05)
[2019-09-16] MEDS: Atorvastatin Calcium 10 MG TAB PO SCH (08:06)
[2019-09-16] MEDS: Calcium Carb/Vit D 500 mg/200 U Tab PO SCH (08:06)
[2019-09-16] MEDS: Lactobacillus Rhamnosus GG 15 Billion CFU CAP.SPRINK PO SCH (08:06)
--- NOTE | 2019-09-16 23:58 | Progress Notes ---
DATE: 09/16/2019 Case was discussed with staff of the patient, reviewed records. The patient is much more stable. She is sleeping well, eating well. She reported no current intent to harm herself or anyone. She continues to isolate herself in her room, apparently they found a place to go to nursing facility. She will be going to [facility]. They accepted her. I already have a prescription ready for her and Dr. Bennett will be dictating the discharge summary that I am covering for him and the patient will be discharged to subacute. JOB# [id number] MTDRomain
--- NOTE | 2019-09-17 01:53 | Progress Notes ---
DATE: 09/16/2019 SUBJECTIVE: The patient seen and examined. The patient is lying in the bed. The patient currently denies any chest pain, shortness of breath, palpitation, dizziness, nausea, vomiting, headache. The patient is ambulatory. OBJECTIVE: VITAL SIGNS: Temperature 97.4, pulse is 78, respiratory rate 19, blood pressure 129/71. HEENT: No facial asymmetry. Poor dentition. NECK: Supple, no JVD. HEART: Both heart sounds are regular. CHEST AND LUNGS: Equal in expansion, no expiratory wheezing. ABDOMEN: Soft, no guarding, no rigidity. Bowel sounds present. No palpable masses. EXTREMITIES: No edema. NEUROLOGIC: Nonfocal. CLINICAL IMPRESSION: 1. Asthma. 2. Hypertension. 3. Chronic kidney disease. 4. Degenerative joint disease. 5. Psychotic disorder. 6. Gastroesophageal reflux disease. 7. Hyperlipidemia. PLAN: 1. Continue Lipitor. 2. Lexapro. 3. Robitussin-DM for cough. 4. P.r.n. Ativan. 5. Protonix for GERD. 6. Monitor blood pressure. 7. General nursing care. 8. Follow lab. 9. Lexapro for depression. 10. P.r.n. inhalation therapy. 11. Care plan reviewed and discussed with staff. JOB# [id number]
== END 2019-09-16 15:20 | DRG 885 ==
LOC: GERO 18:33
PROVIDERS: ADMIT Psychiatry & Neurology Psychiatry; ATTEND Psychiatry & Neurology Psychiatry
DX: F25.1 Schizoaffective disorder, depressive type (principal); N18.3 Chronic kidney disease, stage 3 (moderate); F23 Brief psychotic disorder; J45.901 Unspecified asthma with (acute) exacerbation; M19.90 Unspecified osteoarthritis, unspecified site; Z59.0 Homelessness; Z96.651 Presence of right artificial knee joint; I12.9 Hypertensive chronic kidney disease with stage 1 through stage 4 chronic kidney disease, or unspecified chronic kidney disease; N95.9 Unspecified menopausal and perimenopausal disorder; D63.1 Anemia in chronic kidney disease; M81.0 Age-related osteoporosis without current pathological fracture; E66.9 Obesity, unspecified; Z68.33 Body mass index [BMI] 33.0-33.9, adult; Z91.81 History of falling
CPT/HCPCS: 83036-90; J7512; J7613; Z7610

== ENCOUNTER 2019-09-17 19:19 | Inpatient (IN) | payer MEDICARE ==
[2019-09-17] MEDS ORDERED: Magnesium Hydroxide (MOM) 30 mL UDC PO PRN (22:14)
[2019-09-17] MEDS ORDERED: Maalox 30 mL Cup PO PRN (22:14)
[2019-09-17] MEDS ORDERED: Guaifenesin DM 10 ML UDC PO PRN (22:19)
[2019-09-17 22:29] VITALS: BP 145/93
[2019-09-17] MEDS: Albuterol/Ipratropium Neb 3 ML AERS HHN PRN (22:56)
[2019-09-18] MEDS: Albuterol/Ipratropium Neb 3 ML AERS HHN SCH ×4 (01:07→18:07)
[2019-09-18] MEDS: Calcium Carb/Vit D 500 mg/200 U Tab PO SCH ×2 (08:59→16:45)
[2019-09-18] MEDS: Atorvastatin Calcium 10 MG TAB PO SCH (08:59)
[2019-09-18] MEDS: Multivitamin Tab PO SCH (09:00)
[2019-09-18] MEDS: Pantoprazole 40 mg EC Tab PO SCH (09:00)
[2019-09-18] MEDS: Lactobacillus Rhamnosus GG 15 Billion CFU CAP.SPRINK PO SCH (09:00)
--- NOTE | 2019-09-18 14:26 | History & Physical ---
ADMIT DATE: 09/18/2019 CHIEF COMPLAINT: "I did not like ____." HISTORY OF PRESENT ILLNESS: A 63-year-old female discharged to assisted living facility on 09/17/2019 but the patient came back right away because the patient became more agitated, aggressive and unable to walk. The patient is now being readmitted to the psych facility.PAST MEDICAL HISTORY: Remarkable for: 1. Hypertension. 2. Degenerative joint disease. 3. Psychotic disorder. 4. Right knee replacement. 5. Asthma and chronic obstructive pulmonary disease. 6. History of ovarian cyst removal. MEDICATIONS: List has been reviewed and reconciled appropriately. ALLERGIES: The patient is allergic to ADDERALL and DEXTROAMPHETAMINE. SOCIAL HISTORY: She is currently homeless. No history of smoking cigarette, alcohol, or drug use. FAMILY HISTORY: Remarkable for diabetes and hypertension. MENSTRUAL AND GYNECOLOGIC HISTORY: She is menopausal. 0, para 0. REVIEW OF SYSTEMS: A 12 point review of systems is unremarkable. PHYSICAL EXAMINATION: GENERAL: Alert, awake, lying in the bed without any acute distress. VITAL SIGNS: Temperature 98, pulse is 64, respiratory rate 18, blood pressure 132/66. HEENT: Normocephalic, atraumatic. Extraocular muscles are intact. Tongue was pink and coated. Poor dentition noted. No oral lesion, no exudate. No sinus tenderness. External auditory canal and tympanic membranes are well visualized. NECK: Supple, no JVD, no hepatojugular reflex. No lymphadenopathy, thyromegaly, or carotid bruit. HEART: Both heart sounds are regular. No S3, no S4, no murmur. CHEST: Lung equal in expansion with no expiratory wheezing. No crackles, no rhonchi. ABDOMEN: Soft. No hepatosplenomegaly. No palpable mass. No guarding, no rigidity. No tenderness. EXTREMITIES: No edema, no cyanosis or clubbing. Peripheral pulses +1. No calf tenderness noted. NEUROLOGIC: Limited, but grossly nonfocal. CLINICAL IMPRESSION: 1. Hypertension. 2. Chronic kidney disease 3. 3. Asthma. 4. Psychotic disorder. 5. Anemia of chronic disease. 6. Degenerative joint disease. 7. Psychotic disorder exacerbation. 8. Menopausal 9. Homeless. PLAN: Resume her medication as patient is receiving. We will continue to follow this patient during the stay in the hospital for symptoms management, medication management, general nursing care will be provided. Care plan has been reviewed and discussed with staff. JOB# [id number]
[2019-09-19] MEDS: Albuterol/Ipratropium Neb 3 ML AERS HHN SCH ×4 (01:10→18:05)
--- NOTE | 2019-09-19 08:19 | Psychiatric Evaluation ---
DATE OF SERVICE: 09/18/2019 PSYCHIATRIC INITIAL EVALUATION AND MENTAL STATUS EXAM AGE: 63. SEX: Female. PHYSICIAN: Dr. Bennett. CHIEF COMPLAINT: Depression. HISTORY OF PRESENT ILLNESS: The patient is a 63-year-old female, who was discharged from the hospital one day prior to her re-admission. The patient was discharged from the hospital with plan to go to [facility]. After the patient went to the ambulance from the hospital and went to [place], she refused to get out of the [place] and staff there tried to get out of the [facility], but she completely refused. The patient then was taken to [facility] Emergency Room where the patient still refused to go to [facility] and she was there for overnight and next day and then director of social work and staff was not able to get her to anywhere. I was called and I went to evaluate the patient there and the patient said that she will go to [place], but at the same was no way to get her to [place] from there with her reluctance and her not able to give exact information to go to [facility] and Emergency Room staff did not find any other solution except getting her back to the [facility] until better plans for her discharge can be arranged. The patient said that she is depressed and she did not give me any specific reason why she did not want to go to [facility], although she agreed to go there in the beginning. PAST PSYCHIATRIC HISTORY, PAST MEDICAL HISTORY, SOCIAL HISTORY, ALLERGIES: Please refer to previous admission. MENTAL STATUS EXAMINATION: The patient is anxious. Depressed. Thought processes are circumstantial, but no flight of ideas. The patient denies any hallucinations or delusions. She denies any suicide or homicide. She is alert and oriented to time, place, person, and situation. Intact immediate, recent and remote memories. Poor insight and judgment at this time. ASSESSMENT: PRIMARY DIAGNOSIS: Depressive mood disorder, unspecified. TREATMENT PLAN: We will continue the patient's current medications. Also, we will try to get the patient to [facility] or to any other placement facility as soon as possible for treatment in lower level of care. ESTIMATED LENGTH OF STAY: 1-3 days. DISCHARGE PLANS: Outpatient treatment ____ prison and outpatient treatment. [facility]# [id number]
[2019-09-19] MEDS: Calcium Carb/Vit D 500 mg/200 U Tab PO SCH ×2 (08:51→16:32)
[2019-09-19] MEDS: Atorvastatin Calcium 10 MG TAB PO SCH (08:51)
[2019-09-19] MEDS: Lactobacillus Rhamnosus GG 15 Billion CFU CAP.SPRINK PO SCH (08:51)
[2019-09-19] MEDS: Pantoprazole 40 mg EC Tab PO SCH (08:52)
[2019-09-19] MEDS: Multivitamin Tab PO SCH (08:52)
[2019-09-20] MEDS: Albuterol/Ipratropium Neb 3 ML AERS HHN SCH ×4 (00:30→18:10)
[2019-09-20] MEDS: Multivitamin Tab PO SCH (08:16)
[2019-09-20] MEDS: Atorvastatin Calcium 10 MG TAB PO SCH (08:17)
[2019-09-20] MEDS: Lactobacillus Rhamnosus GG 15 Billion CFU CAP.SPRINK PO SCH (08:17)
[2019-09-20] MEDS: Pantoprazole 40 mg EC Tab PO SCH (08:17)
[2019-09-20] MEDS: Calcium Carb/Vit D 500 mg/200 U Tab PO SCH ×2 (08:17→17:14)
[2019-09-20] MEDS: Albuterol/Ipratropium Neb 3 ML AERS HHN PRN ×2 (11:46→19:45)
[2019-09-21] MEDS: Albuterol/Ipratropium Neb 3 ML AERS HHN SCH ×4 (00:58→19:00)
[2019-09-21] MEDS: Albuterol/Ipratropium Neb 3 ML AERS HHN PRN (05:54)
[2019-09-21] MEDS: Calcium Carb/Vit D 500 mg/200 U Tab PO SCH ×2 (09:15→17:50)
[2019-09-21] MEDS: Pantoprazole 40 mg EC Tab PO SCH (09:15)
[2019-09-21] MEDS: Atorvastatin Calcium 10 MG TAB PO SCH (09:15)
[2019-09-21] MEDS: Lactobacillus Rhamnosus GG 15 Billion CFU CAP.SPRINK PO SCH (09:15)
[2019-09-21] MEDS: Multivitamin Tab PO SCH (09:15)
--- NOTE | 2019-09-21 22:45 | Progress Notes ---
DATE: 09/21/2019 SUBJECTIVE: The patient coming from [facility]. Apparently refused to get off the gurney. They refused to take her due to concerns she could not walk. The patient was apparently hesitant and acting really strange, could not make up her mind, still with ongoing episodes of confusion, withdrawn, mostly isolative, refusing to speak with me this morning. I go to go see her, she does not engage with me whatsoever. We will continue to monitor, encourage increased walking, sometimes refusing treatments, still remains preoccupied, paranoid. JOB# [id number]
[2019-09-22] MEDS: Albuterol/Ipratropium Neb 3 ML AERS HHN SCH ×4 (00:55→18:25)
[2019-09-22] MEDS: Calcium Carb/Vit D 500 mg/200 U Tab PO SCH ×2 (09:06→16:29)
[2019-09-22] MEDS: Atorvastatin Calcium 10 MG TAB PO SCH (09:06)
[2019-09-22] MEDS: Multivitamin Tab PO SCH (09:06)
[2019-09-22] MEDS: Lactobacillus Rhamnosus GG 15 Billion CFU CAP.SPRINK PO SCH (09:06)
[2019-09-22] MEDS: Pantoprazole 40 mg EC Tab PO SCH (09:07)
[2019-09-23] MEDS: Albuterol/Ipratropium Neb 3 ML AERS HHN SCH ×4 (00:40→18:06)
[2019-09-23] MEDS: Albuterol/Ipratropium Neb 3 ML AERS HHN PRN ×2 (04:33→21:23)
--- NOTE | 2019-09-23 08:04 | Progress Notes ---
DATE: DATE: 09/19/2019 SUBJECTIVE: Chart reviewed and the patient interviewed. Also discussed the patient's condition with the staff and reviewed records and labs. The patient is still anxious and she is still working on her discharge plans. The patient also still has difficulty making decisions and is still having difficulty to agreeable to go to a [facility] and still thinks that she has a place in [place]. She also still needs encouragement to get out of her isolation and to interact more with others. At the same time, working with case hardener in regard to try to get the patient to [facility]. ASSESSMENT: The patient is still depressed and still has difficulty making decisions in regard to discharge plans. TREATMENT PLAN: Continue current medications and continue working with case hardener in regard to placement issue at the discharge plans. JOB# [id number]
--- NOTE | 2019-09-23 08:04 | Progress Notes ---
DATE: 09/20/2019 SUBJECTIVE: Chart reviewed and the patient interviewed. Also discussed the patient's condition with the staff and reviewed records and labs. The patient is still anxious and is still confused about where she is going to go and about her discharge plans. The patient also is still restless and she still needs lots of redirections. She also is still interacting minimally with peers and with others. Otherwise, the patient is compliant with taking medications with no side effects of medications. ASSESSMENT: The patient is still depressed and still has no clear plan for her discharge. TREATMENT PLAN: Still waiting for [facility] to give us the final approval or disapproval for her discharge. At the same time, we will continue to work on her depressed mood and her irritability and we will continue to follow up. JOB# [id number]
--- NOTE | 2019-09-23 08:04 | Progress Notes ---
DATE: 09/22/2019 SUBJECTIVE: A 63-year-old female noted to be irritable, upset, but more amenable to treatment. Seems to be friendlier, calmer, did not want to leave the hospital. Alma [place]o did not feel that she was okay to come back to their facility. Mostly keeps to self, withdrawn, does not say much to me today. She did sign WOL yesterday. She is more accepting of treatment, sad, depressed. PLAN: We will continue to monitor, adjust dosing of medications, still with some periods of disorientation. The patient to follow up with Dr. Bennett in the morning. JOB# [id number]
[2019-09-23] MEDS: Lactobacillus Rhamnosus GG 15 Billion CFU CAP.SPRINK PO SCH (08:48)
[2019-09-23] MEDS: Multivitamin Tab PO SCH (08:48)
[2019-09-23] MEDS: Pantoprazole 40 mg EC Tab PO SCH (08:48)
[2019-09-23] MEDS: Calcium Carb/Vit D 500 mg/200 U Tab PO SCH ×2 (08:48→17:32)
[2019-09-23] MEDS: Atorvastatin Calcium 10 MG TAB PO SCH (08:48)
--- NOTE | 2019-09-23 19:44 | Progress Notes ---
DATE: 09/23/2019 SUBJECTIVE: Chart was reviewed and the patient interviewed. Also discussed the patient's condition with the staff and reviewed records and labs. The patient continued to be paranoid and suspicious. The patient also is guarded. The patient also is still wandering about placement and where she is going to live and "nobody to talk about it for the last 3 days." She is still restless and she still needs redirections. Otherwise, the patient is compliant with taking her medications and she seems to be in a depressed mood, but she denies any thoughts of suicide. ASSESSMENT: The patient is still depressed and anxious and waiting for placement. TREATMENT PLAN: Continue current medications and treatment. Also, continue to work with case management rn and discharge plans and hopefully, the patient can go to [facility] or whatever the case management rn can arrange for her. JOB# [id number]
--- NOTE | 2019-09-24 01:39 | Progress Notes ---
DATE: 09/23/2019 SUBJECTIVE: The patient is seen and examined. The patient is lying in the bed. The patient denies any chest pain, shortness of breath, palpitation, dizziness, nausea, vomiting or diarrhea. PHYSICAL EXAMINATION: VITAL SIGNS: See nurse's note. HEENT: Poor dentition. NECK: Supple. No JVD. HEART: Both heart sounds are regular. CHEST AND LUNGS: Equal in expansion. No expiratory wheezing. ABDOMEN: Soft. Bowel sounds present. No palpable masses. EXTREMITIES: No edema. NEUROLOGIC: Nonfocal. CLINICAL IMPRESSION: 1. Hypertension. 2. Hyperlipidemia. 3. Chronic kidney disease. 4. Degenerative joint disease. 5. Psychotic disorder. 6. Anemia of chronic kidney disease. 7. Homeless. PLAN: 1. Psychiatric evaluation and management deferred to Psychiatry. 2. Monitor blood pressure. 3. Statin. 4. Antihypertensive medicine. 5. General nursing care. 6. Follow lab. 7. We will continue to follow this patient during the stay in the hospital. 8. Care plan reviewed and discussed with staff. JOB# [id number]
[2019-09-24] MEDS: Albuterol/Ipratropium Neb 3 ML AERS HHN SCH ×4 (02:00→18:56)
[2019-09-24] MEDS: Albuterol/Ipratropium Neb 3 ML AERS HHN PRN ×3 (05:08→21:09)
[2019-09-24] MEDS: Multivitamin Tab PO SCH (09:25)
[2019-09-24] MEDS: Calcium Carb/Vit D 500 mg/200 U Tab PO SCH ×2 (09:26→16:43)
[2019-09-24] MEDS: Pantoprazole 40 mg EC Tab PO SCH (09:26)
[2019-09-24] MEDS: Lactobacillus Rhamnosus GG 15 Billion CFU CAP.SPRINK PO SCH (09:27)
[2019-09-24] MEDS: Atorvastatin Calcium 10 MG TAB PO SCH (09:27)
--- NOTE | 2019-09-24 13:13 | Progress Notes ---
DATE: 09/24/2019 SUBJECTIVE: Chart was reviewed and the patient interviewed. Also discussed the patient's condition with the staff and reviewed records and labs. The patient remains in a depressed mood. The patient also is still guarded and is still at times demanding according to the staff. The patient also is still talking about her desire to go to [place] to live in a woman place, but unable to elaborate more on that. control system manager also is still trying to figure out where the patient can be discharged to. At the same time, the patient said that she has no objections to go to [facility] where she is ____ she was supposed to go originally. On other hand, the patient is compliant with taking the medications. ASSESSMENT: The patient is still depressed and waiting for placement. TREATMENT PLAN: Continue the patient on Seroquel 25 mg in the morning and 300 mg at bedtime as well as Lexapro 10 mg every day and trazodone 100 mg at bedtime. We will continue working on her ineffective coping and also placement issue and discharge plans. [facility]# [id number]
--- NOTE | 2019-09-24 22:25 | Progress Notes ---
DATE: 09/24/2019 SUBJECTIVE: The patient seen and examined. The patient is lying in the bed. The patient currently denies any chest pain, shortness of breath, palpitation, dizziness, nausea, vomiting. The patient's cough is better. PHYSICAL EXAMINATION: VITAL SIGNS: Temperature 97, pulse is 81, respiratory rate 18, blood pressure 130/78. HEENT: No facial asymmetry. NECK: Supple, no JVD. HEART: Regular. CHEST AND LUNGS: Equal in expansion, no expiratory wheezing. ABDOMEN: Soft. Bowel sounds present. No palpable masses. EXTREMITIES: No edema. CLINICAL IMPRESSION: 1. Hyperlipidemia. 2. Degenerative joint disease. 3. Osteoporosis. 4. Chronic kidney disease. 5. Anemia, normocytic, normochromic. 6. Fall precautions. 7. Psychotic disorder exacerbation. PLAN: 1. Continue statin. 2. Continue aspirin for cerebrovascular accident prophylaxis. 3. P.r.n. inhalation therapy. 4. General nursing care. 5. Psych medication. 6. Psych followup. 7. Continue current treatment plan as prescribed. 8. Care plan reviewed and discussed with staff. JOB# [id number]
[2019-09-25] MEDS: Albuterol/Ipratropium Neb 3 ML AERS HHN SCH ×4 (01:46→18:00)
[2019-09-25] MEDS: Albuterol/Ipratropium Neb 3 ML AERS HHN PRN (02:58)
[2019-09-25] MEDS: Lactobacillus Rhamnosus GG 15 Billion CFU CAP.SPRINK PO SCH (08:27)
[2019-09-25] MEDS: Atorvastatin Calcium 10 MG TAB PO SCH (08:27)
[2019-09-25] MEDS: Calcium Carb/Vit D 500 mg/200 U Tab PO SCH ×2 (08:28→16:34)
[2019-09-25] MEDS: Multivitamin Tab PO SCH (08:28)
[2019-09-25] MEDS: Pantoprazole 40 mg EC Tab PO SCH (08:28)
[2019-09-26] MEDS: Albuterol/Ipratropium Neb 3 ML AERS HHN SCH ×4 (00:54→21:11)
[2019-09-26] MEDS: Albuterol/Ipratropium Neb 3 ML AERS HHN PRN ×2 (05:47→17:01)
[2019-09-26] MEDS: Atorvastatin Calcium 10 MG TAB PO SCH (08:37)
[2019-09-26] MEDS: Lactobacillus Rhamnosus GG 15 Billion CFU CAP.SPRINK PO SCH (08:37)
[2019-09-26] MEDS: Calcium Carb/Vit D 500 mg/200 U Tab PO SCH ×2 (08:37→16:29)
[2019-09-26] MEDS: Multivitamin Tab PO SCH (08:38)
[2019-09-26] MEDS: Pantoprazole 40 mg EC Tab PO SCH (08:38)
[2019-09-27] MEDS: Albuterol/Ipratropium Neb 3 ML AERS HHN SCH ×4 (01:18→18:12)
[2019-09-27] MEDS: Albuterol/Ipratropium Neb 3 ML AERS HHN PRN ×2 (04:17→09:33)
--- NOTE | 2019-09-27 07:47 | Progress Notes ---
DATE: 09/25/2019 DATE: 09/25/2019 Chart reviewed and the patient interviewed. Also discussed the patient's condition with the staff and reviewed records and labs. The patient is still in a depressed mood. The patient also is still withdrawn and anxious and interacting minimally with peers and with others. The patient also is denying any intention to harm herself or others. She also continued to work on her discharge plans and she is still unable to provide any safe plan for her discharge and case management coordinator also is still unable to find a place for the patient. Otherwise, the patient is compliant with taking her medications and no side effects of medications. ASSESSMENT: The patient is still depressed and still needs placement. TREATMENT PLAN: Continue to monitor her behavior and her condition closely. Also, continue adjusting psychotropic medications and work on discharge plans and placement issue. [facility]# [id number]
[2019-09-27] MEDS: Pantoprazole 40 mg EC Tab PO SCH (08:46)
[2019-09-27] MEDS: Multivitamin Tab PO SCH (08:46)
[2019-09-27] MEDS: Lactobacillus Rhamnosus GG 15 Billion CFU CAP.SPRINK PO SCH (08:46)
[2019-09-27] MEDS: Atorvastatin Calcium 10 MG TAB PO SCH (08:46)
[2019-09-27] MEDS: Calcium Carb/Vit D 500 mg/200 U Tab PO SCH ×2 (08:48→17:00)
--- NOTE | 2019-09-27 10:28 | Progress Notes ---
DATE: 09/26/2019 DATE: 09/26/2019. Chart reviewed and the patient interviewed. Also, discussed the patient's condition with the staff and reviewed records and labs. The patient remains in a depressed mood. Also, the patient is having sad affect. The patient also is interacting minimally with others. The patient denies any thoughts of suicide or homicide, but still unable to provide any safe plan for self-care. ASSESSMENT: The patient is still depressed and still needs placement. TREATMENT PLAN: Continue to monitor behavior and condition closely. Also, waiting for nurse outreach case manager for placement. At the same time, we will continue to follow up. JOB# [id number]
--- NOTE | 2019-09-27 16:32 | Internal Medicine Prog Note ---
Internal Medicine Subjective - Subjective Patient seen and examined:: with staff, chart reviewed Patient is:: awake, verbal, interactive Per staff patient has:: no adverse event, tolerating meds, refusing care Internal Medicine Objective - Physical Exam Vitals and I&O: Vital Signs Temp 97.9 F 09/27/19 14:00 Pulse 84 09/27/19 14:00 Resp 18 09/27/19 14:00 BP 134/80 09/27/19 14:00 Pulse Ox 98 09/27/19 14:00 Intake & Output 09/26/19 09/27/19 09/27/19 18:59 06:59 18:59 Intake Total 1220 120 Balance 1220 120 Intake: Oral 1220 120 Other: # Voids 4 3 # Bowel Movements 1 Active Medications: Current Medications Acetaminophen (Tylenol) 650 mg PO Q4HR PRN PRN Reason: Mild Pain (Scale 1-3) Stop: 11/16/19 22:13 Acetaminophen (Tylenol) 650 mg PO Q4HR PRN PRN Reason: TEMP ABOVE 100 Stop: 11/18/19 16:06 Al Hydrox/Mg Hydrox/Simethicone (Maalox) 30 ml PO Q4HR PRN PRN Reason: GI DISTRESS Stop: 11/16/19 22:13 Albuterol/Ipratropium (Duoneb Neb) 3 ml HHN Q2HRT PRN PRN Reason: Wheezing Stop: 11/16/19 22:18 Last Admin: 09/27/19 09:33 Dose: 3 ml Albuterol/Ipratropium (Duoneb Neb) 3 ml HHN Q6HRT [facility] Stop: 11/17/19 00:59 Last Admin: 09/27/19 13:21 Dose: 3 ml Aspirin (Ecotrin) 81 mg PO DAILY [facility] Stop: 11/17/19 08:59 Last Admin: 09/27/19 08:46 Dose: 81 mg Atorvastatin Calcium (Lipitor) 10 mg PO DAILY [facility]; Protocol Stop: 11/17/19 08:59 Last Admin: 09/27/19 08:46 Dose: 10 mg Calcium/Vitamin D (Oscal W/Vitamin D) 1 tab PO BID [facility] Stop: 11/17/19 08:59 Last Admin: 09/27/19 08:48 Dose: 1 tab Escitalopram Oxalate (Lexapro) 10 mg PO DAILY [facility]; Protocol Stop: 11/17/19 08:59 Last Admin: 09/27/19 09:15 Dose: 10 mg Guaifenesin/Dextromethorphan (Robitussin Dm) 5 ml PO Q6HR PRN PRN Reason: Cough Stop: 11/16/19 22:18 Last Admin: 09/23/19 04:33 Dose: 5 ml Lactobacillus Rhamnosus (Culturelle 15b) 1 each PO DAILY [facility] Stop: 11/17/19 08:59 Last Admin: 09/27/19 08:46 Dose: 1 each Lorazepam (Ativan) 0.5 mg PO Q4HR PRN; Protocol PRN Reason: Anxiety Stop: 11/24/19 10:35 Magnesium Hydroxide (Milk Of Magnesia) 30 ml PO HS PRN PRN Reason: Constipation Multivitamins/Vitamin C (Theragran) 1 tab PO DAILY [facility] Stop: 11/17/19 08:59 Last Admin: 09/27/19 08:46 Dose: 1 tab Pantoprazole Sodium (Protonix) 40 mg PO DAILY [facility] Stop: 11/17/19 08:59 Last Admin: 09/27/19 08:46 Dose: 40 mg Quetiapine Fumarate (Seroquel) 25 mg PO DAILY [facility]; Protocol Stop: 11/17/19 08:59 Last Admin: 09/27/19 08:46 Dose: 25 mg Quetiapine Fumarate (Seroquel) 300 mg PO HS [facility]; Protocol Stop: 11/16/19 22:59 Last Admin: 09/26/19 21:10 Dose: 300 mg Trazodone HCl (Desyrel) 100 mg PO HS [facility]; Protocol Stop: 11/16/19 22:59 Last Admin: 09/26/19 21:10 Dose: 100 mg General: alert HEENT: NC/AT, PERRLA Neck: Supple, No thyromegaly Lungs: CTAB Cardiovascular: RRR, Normal S1, Normal S2 Abdomen: soft, non-tender, globular Extremities: excoriation Neurological: no change - Procedures Procedures: Procedures Procedure Code Date EGD BIOPSY SINGLE/MULTIPLE 33671 05/06/17 EXCISION OF DUODENUM, ENDO, DIAGN [id number] 05/06/17 EXCISION OF STOMACH, ENDO, DIAGN [id number] 05/06/17 Internal Medicine Assmt/Plan - Assessment Assessment: hyperlipidemia djd osteoporosis cri anemia gerd - Plan Plan: cont on statin continue on asa fall precaution nsaids prn dw rn Nutritional Asmnt/Malnutr-PDOC - Dietary Evaluation Malnutrition Findings (Please click <Entered> for more info): Nutritional Asmnt/Malnutrition Start: 09/24/19 12: 38 Text: Status: Complete Freq: Protocol: Document 09/24/19 12:38 NAYELI (Rec: 09/24/19 12:42 NAYELI JUAN CARLOS-[email or web address]) Nutritional Asmnt/Malnutrition Patient General Information Nutritional Screening Moderate Risk Diagnosis Psychosis Pertinent Medical Hx/Surgical Hx HTN, DJD, Psychosis, RT knee Replacement, Asthma/COPD, Ovarian cyst removal Subjective Information Pt is a 63-year-old female admitted on 09/17 d/t increased agitation, aggressive behavior and noted inability to walk. Pt was d/c from our facility on 09/17 and returned d/t above mentioned reasons. Pt is eating an estimated 100% of meals Per Meal/Nutrition Activity Record . Dietary is currently providing an estimated 2300 kcals and 120 gm Pro to meet 100+% kcal and 100+% Pro needs . Visited pt after lunch once finished with lunch. She stated the food was good and she was full. She asked for a nurse as she felt SOB. I grabbed the RECEIVER to relay the message as the nurse was on break. Anthropometrics HT: 57 WT: 216 LB (98.18 kg) ABW: 155 LB (70.57 kg) BMI: 33.81 (Obese) GI/ Skin Integrity GI: WNL, Soft, Round, Non- tender BM: 09/24 x1 I/O: 1240/Not Noted Skin: WNL, Intact Oniel: 20 Diet Order: Regular Estimated Energy Needs: (Obese , ABW) 9425-4435 kcals (20-25 kcals/ kg) 60-70g Pro (0.8-1.0 g/kg) 5609-1622 ml (25-30 ml/kg) Current Diet Order/ Nutrition Support Regular Pertinent Medications Maalox (PRN), Albuterol (PRN), Lipitor, Oscal with vitamin D , MOM (PRN), Theragran, Protonix Pertinent Labs No pertinent labs/ labs charted Nutritional Hx/Data Height 1.7 m Height (Calculated Centimeters) 170.2 Current Weight (lbs) 97.976 kg Weight (Calculated Kilograms) 98.0 Weight (Calculated Grams) 68903.0 [place] Body Weight 135 LB (61.36 kg) % [place] Body Weight 160 Body Mass Index (BMI) 33.8 Weight Status Obese GI Symptoms GI Symptoms None Last BM 09/24 x1 Skin Integrity/Comment: Skin: WNL, Intact Oniel: 20 Current %PO Good (75-100%) Estimated Nutritional Goals BEE in Kcals: Adj wt of IBW Calories/Kcals/Kg 20-25 Kcals Calculated 6633-0208 Protein: Adj wt of IBW Protein g/k.8-1.0 Protein Calculated 60-70 Fluid: ml 4446-5493 ml (25-30 ml/kg) Nutritional Problem No current Nutrition Prob Problem No nutrition diagnosis at this time. Etiology N/A Signs/Symptoms: N/A Malnutrition Related to Morbid Obesity Malnutrition related to morbid obesity No Intervention/Recommendation Comments Continue Regular diet as tolerated. Expected Outcomes/Goals Expected Outcomes/Goals 1. PO intake to continue to meet >75% of estimated nutritional needs. 2. Monitor PO intake, wt, nutrition related labs, and skin integrity. 3. F/U as low risk in 7-10 days, 10/01-10/04
--- NOTE | 2019-09-27 22:04 | Progress Notes ---
DATE: SUBJECTIVE: Chart was reviewed and the patient interviewed. Also discussed the patient's condition with the staff and reviewed records and labs. The patient is still withdrawn and is still in a depressed mood. The patient also is still guarded and still unable to provide safe plan for self-care. She also is still waiting for placement. On the other hand, the patient continued to comply with taking her medications with no side effects of medications. ASSESSMENT: The patient is still depressed and needs close monitoring. TREATMENT PLAN: Continue to monitor behavior and condition closely. Also, continue adjusting psychotropic medications and working on placement issue. JOB# [id number]
[2019-09-28] MEDS: Albuterol/Ipratropium Neb 3 ML AERS HHN PRN ×3 (00:04→23:38)
[2019-09-28] MEDS: Albuterol/Ipratropium Neb 3 ML AERS HHN SCH ×4 (01:05→18:22)
[2019-09-28] MEDS: Multivitamin Tab PO SCH (08:28)
[2019-09-28] MEDS: Calcium Carb/Vit D 500 mg/200 U Tab PO SCH ×2 (08:28→16:48)
[2019-09-28] MEDS: Pantoprazole 40 mg EC Tab PO SCH (08:28)
[2019-09-28] MEDS: Lactobacillus Rhamnosus GG 15 Billion CFU CAP.SPRINK PO SCH (08:29)
[2019-09-28] MEDS: Atorvastatin Calcium 10 MG TAB PO SCH (08:29)
--- NOTE | 2019-09-28 15:07 | Internal Medicine Prog Note ---
Internal Medicine Subjective - Subjective Service Date: 09/28/19 Patient is:: awake, verbal, interactive Per staff patient has:: no adverse event, tolerating meds, refusing care Internal Medicine Objective - Physical Exam Vitals and I&O: Vital Signs Temp 96.7 F 09/28/19 14:24 Pulse 86 09/28/19 14:24 Resp 20 09/28/19 14:24 BP 127/78 09/28/19 14:24 Pulse Ox 96 09/28/19 14:24 Intake & Output 09/27/19 09/28/19 09/28/19 18:59 06:59 18:59 Intake Total 1300 160 Balance 1300 160 Intake: Oral 1300 160 Other: # Voids 3 2 # Bowel Movements 0 0 Active Medications: Current Medications Acetaminophen (Tylenol) 650 mg PO Q4HR PRN PRN Reason: Mild Pain (Scale 1-3) Stop: 11/16/19 22:13 Acetaminophen (Tylenol) 650 mg PO Q4HR PRN PRN Reason: TEMP ABOVE 100 Stop: 11/18/19 16:06 Al Hydrox/Mg Hydrox/Simethicone (Maalox) 30 ml PO Q4HR PRN PRN Reason: GI DISTRESS Stop: 11/16/19 22:13 Albuterol/Ipratropium (Duoneb Neb) 3 ml HHN Q2HRT PRN PRN Reason: Wheezing Stop: 11/16/19 22:18 Last Admin: 09/28/19 11:13 Dose: 3 ml Albuterol/Ipratropium (Duoneb Neb) 3 ml HHN Q6HRT [facility]PLACED BY [facility] Stop: 11/17/19 00:59 Last Admin: 09/28/19 13:47 Dose: 3 ml Aspirin (Ecotrin) 81 mg PO DAILY [facility] Stop: 11/17/19 08:59 Last Admin: 09/28/19 08:29 Dose: 81 mg Atorvastatin Calcium (Lipitor) 10 mg PO DAILY [facility]; Protocol Stop: 11/17/19 08:59 Last Admin: 09/28/19 08:29 Dose: 10 mg Calcium/Vitamin D (Oscal W/Vitamin D) 1 tab PO BID [facility] Stop: 11/17/19 08:59 Last Admin: 09/28/19 08:28 Dose: 1 tab Escitalopram Oxalate (Lexapro) 10 mg PO DAILY [facility]; Protocol Stop: 11/17/19 08:59 Last Admin: 09/28/19 08:29 Dose: 10 mg Guaifenesin/Dextromethorphan (Robitussin Dm) 5 ml PO Q6HR PRN PRN Reason: Cough Stop: 11/16/19 22:18 Last Admin: 09/23/19 04:33 Dose: 5 ml Lactobacillus Rhamnosus (Culturelle 15b) 1 each PO DAILY [facility] Stop: 11/17/19 08:59 Last Admin: 09/28/19 08:29 Dose: 1 each Lorazepam (Ativan) 0.5 mg PO Q4HR PRN; Protocol PRN Reason: Anxiety Stop: 11/24/19 10:35 Magnesium Hydroxide (Milk Of Magnesia) 30 ml PO HS PRN PRN Reason: Constipation Multivitamins/Vitamin C (Theragran) 1 tab PO DAILY [facility] Stop: 11/17/19 08:59 Last Admin: 09/28/19 08:28 Dose: 1 tab Pantoprazole Sodium (Protonix) 40 mg PO DAILY [facility] Stop: 11/17/19 08:59 Last Admin: 09/28/19 08:28 Dose: 40 mg Quetiapine Fumarate (Seroquel) 25 mg PO DAILY [facility]; Protocol Stop: 11/17/19 08:59 Last Admin: 09/28/19 08:29 Dose: 25 mg Quetiapine Fumarate (Seroquel) 300 mg PO HS [facility]; Protocol Stop: 11/16/19 22:59 Last Admin: 09/27/19 20:40 Dose: 300 mg Trazodone HCl (Desyrel) 100 mg PO HS [facility]; Protocol Stop: 11/16/19 22:59 Last Admin: 09/27/19 20:40 Dose: 100 mg General: alert HEENT: NC/AT, PERRLA Neck: Supple, No thyromegaly Lungs: CTAB Cardiovascular: RRR, Normal S1, Normal S2 Abdomen: soft, non-tender, globular Extremities: excoriation Neurological: no change - Procedures Procedures: Procedures Procedure Code Date EGD BIOPSY SINGLE/MULTIPLE 57715 05/06/17 EXCISION OF DUODENUM, ENDO, DIAGN [id number] 05/06/17 EXCISION OF STOMACH, ENDO, DIAGN [id number] 05/06/17 Internal Medicine Assmt/Plan - Assessment Assessment: hyperlipidemia djd osteoporosis cri anemia gerd - Plan Plan: cont on statin continue on asa fall precaution nsaids prn dw rn Nutritional Asmnt/Malnutr-PDOC - Dietary Evaluation Malnutrition Findings (Please click <Entered> for more info): Nutritional Asmnt/Malnutrition Start: 09/24/19 12: 38 Text: Status: Complete Freq: Protocol: Document 09/24/19 12:38 NAYELI (Rec: 09/24/19 12:42 NAYELI JUAN CARLOS-[email or web address]) Nutritional Asmnt/Malnutrition Patient General Information Nutritional Screening Moderate Risk Diagnosis Psychosis Pertinent Medical Hx/Surgical Hx HTN, DJD, Psychosis, RT knee Replacement, Asthma/COPD, Ovarian cyst removal Subjective Information Pt is a 63-year-old female admitted on 09/17 d/t increased agitation, aggressive behavior and noted inability to walk. Pt was d/c from our facility on 09/17 and returned d/t above mentioned reasons. Pt is eating an estimated 100% of meals Per Meal/Nutrition Activity Record . Dietary is currently providing an estimated 2300 kcals and 120 gm Pro to meet 100+% kcal and 100+% Pro needs . Visited pt after lunch once finished with lunch. She stated the food was good and she was full. She asked for a nurse as she felt SOB. I grabbed the DRAFTER PLUMBING to relay the message as the nurse was on break. Anthropometrics HT: 57 WT: 216 LB (98.18 kg) ABW: 155 LB (70.57 kg) BMI: 33.81 (Obese) GI/ Skin Integrity GI: WNL, Soft, Round, Non- tender BM: 09/24 x1 I/O: 1240/Not Noted Skin: WNL, Intact Oniel: 20 Diet Order: Regular Estimated Energy Needs: (Obese , ABW) 6904-0324 kcals (20-25 kcals/ kg) 60-70g Pro (0.8-1.0 g/kg) 2572-9509 ml (25-30 ml/kg) Current Diet Order/ Nutrition Support Regular Pertinent Medications Maalox (PRN), Albuterol (PRN), Lipitor, Oscal with vitamin D , MOM (PRN), Theragran, Protonix Pertinent Labs No pertinent labs/ labs charted Nutritional Hx/Data Height 5 ft 7 in Height (Calculated Centimeters) 170.2 Current Weight (lbs) 216 lb Weight (Calculated Kilograms) 98.0 Weight (Calculated Grams) 07044.0 [place] Body Weight 135 LB (61.36 kg) % [place] Body Weight 160 Body Mass Index (BMI) 33.8 Weight Status Obese GI Symptoms GI Symptoms None Last BM 09/24 x1 Skin Integrity/Comment: Skin: WNL, Intact Oniel: 20 Current %PO Good (75-100%) Estimated Nutritional Goals BEE in Kcals: Adj wt of IBW Calories/Kcals/Kg 20-25 Kcals Calculated 5257-5906 Protein: Adj wt of IBW Protein g/k.8-1.0 Protein Calculated 60-70 Fluid: ml 4224-1403 ml (25-30 ml/kg) Nutritional Problem No current Nutrition Prob Problem No nutrition diagnosis at this time. Etiology N/A Signs/Symptoms: N/A Malnutrition Related to Morbid Obesity Malnutrition related to morbid obesity No Intervention/Recommendation Comments Continue Regular diet as tolerated. Expected Outcomes/Goals Expected Outcomes/Goals 1. PO intake to continue to meet >75% of estimated nutritional needs. 2. Monitor PO intake, wt, nutrition related labs, and skin integrity. 3. F/U as low risk in 7-10 days, 10/01-10/04
--- NOTE | 2019-09-28 20:25 | Progress Notes ---
DATE: 09/28/2019 SUBJECTIVE: Chart was reviewed and patient was interviewed. Also, discussed the patient's condition with the staff and reviewed records and labs. The patient is still in a depressed mood. The patient also still have sad affect. She also is still guarded. She also is still unable to provide a safe plan for self-care and she is still talking about going to a place in [place] that she does not even know the name of the place. Otherwise, the patient continued to comply with taking her medications with no side effects of medications. She also continued asking for breathing treatment, although today, she seems to be slightly less than other days. ASSESSMENT: The patient is still depressed and still waiting for a placement. TREATMENT PLAN: Continue to monitor behavior and condition closely. Also, continue adjusting medications and working on discharge plans and the placement issue. JOB# [id number]
[2019-09-29] MEDS: Albuterol/Ipratropium Neb 3 ML AERS HHN SCH ×4 (01:00→18:01)
[2019-09-29] MEDS: Albuterol/Ipratropium Neb 3 ML AERS HHN PRN ×3 (03:39→23:01)
[2019-09-29] MEDS: Calcium Carb/Vit D 500 mg/200 U Tab PO SCH ×2 (08:32→16:42)
[2019-09-29] MEDS: Pantoprazole 40 mg EC Tab PO SCH (08:32)
[2019-09-29] MEDS: Atorvastatin Calcium 10 MG TAB PO SCH (08:32)
[2019-09-29] MEDS: Lactobacillus Rhamnosus GG 15 Billion CFU CAP.SPRINK PO SCH (08:32)
[2019-09-29] MEDS: Multivitamin Tab PO SCH (08:32)
--- NOTE | 2019-09-29 13:10 | Internal Medicine Prog Note ---
Internal Medicine Subjective - Subjective Service Date: 09/29/19 Patient is:: awake, verbal, interactive Per staff patient has:: no adverse event, tolerating meds, refusing care Internal Medicine Objective - Physical Exam Vitals and I&O: Vital Signs Temp 97.6 F 09/29/19 06:20 Pulse 80 09/29/19 08:00 Resp 20 09/29/19 08:00 BP 141/81 09/29/19 08:00 Pulse Ox 94 09/29/19 06:20 Intake & Output 09/28/19 09/29/19 09/29/19 18:59 06:59 18:59 Intake Total 1000 240 Balance 1000 240 Intake: Oral 1000 240 Other: # Voids 4 1 # Bowel Movements 1 Stool Characteristics Formed Brown Active Medications: Current Medications Acetaminophen (Tylenol) 650 mg PO Q4HR PRN PRN Reason: Mild Pain (Scale 1-3) Stop: 11/16/19 22:13 Acetaminophen (Tylenol) 650 mg PO Q4HR PRN PRN Reason: TEMP ABOVE 100 Stop: 11/18/19 16:06 Al Hydrox/Mg Hydrox/Simethicone (Maalox) 30 ml PO Q4HR PRN PRN Reason: GI DISTRESS Stop: 11/16/19 22:13 Albuterol/Ipratropium (Duoneb Neb) 3 ml HHN Q2HRT PRN PRN Reason: Wheezing Stop: 11/16/19 22:18 Last Admin: 09/29/19 11:29 Dose: 3 ml Albuterol/Ipratropium (Duoneb Neb) 3 ml HHN Q6HRT [facility] Stop: 11/17/19 00:59 Last Admin: 09/29/19 07:07 Dose: 3 ml Aspirin (Ecotrin) 81 mg PO DAILY [facility] Stop: 11/17/19 08:59 Last Admin: 09/29/19 08:32 Dose: 81 mg Atorvastatin Calcium (Lipitor) 10 mg PO DAILY [facility]; Protocol Stop: 11/17/19 08:59 Last Admin: 09/29/19 08:32 Dose: 10 mg Calcium/Vitamin D (Oscal W/Vitamin D) 1 tab PO BID [facility] Stop: 11/17/19 08:59 Last Admin: 09/29/19 08:32 Dose: 1 tab Escitalopram Oxalate (Lexapro) 10 mg PO DAILY [facility]; Protocol Stop: 11/17/19 08:59 Last Admin: 09/29/19 08:32 Dose: 10 mg Guaifenesin/Dextromethorphan (Robitussin Dm) 5 ml PO Q6HR PRN PRN Reason: Cough Stop: 11/16/19 22:18 Last Admin: 09/23/19 04:33 Dose: 5 ml Lactobacillus Rhamnosus (Culturelle 15b) 1 each PO DAILY [facility] Stop: 11/17/19 08:59 Last Admin: 09/29/19 08:32 Dose: 1 each Lorazepam (Ativan) 0.5 mg PO Q4HR PRN; Protocol PRN Reason: Anxiety Stop: 11/24/19 10:35 Magnesium Hydroxide (Milk Of Magnesia) 30 ml PO HS PRN PRN Reason: Constipation Multivitamins/Vitamin C (Theragran) 1 tab PO DAILY [facility] Stop: 11/17/19 08:59 Last Admin: 09/29/19 08:32 Dose: 1 tab Pantoprazole Sodium (Protonix) 40 mg PO DAILY [facility] Stop: 11/17/19 08:59 Last Admin: 09/29/19 08:32 Dose: 40 mg Quetiapine Fumarate (Seroquel) 25 mg PO DAILY [facility]; Protocol Stop: 11/17/19 08:59 Last Admin: 09/29/19 08:32 Dose: 25 mg Quetiapine Fumarate (Seroquel) 300 mg PO HS [facility]; Protocol Stop: 11/16/19 22:59 Last Admin: 09/28/19 21:02 Dose: 300 mg Trazodone HCl (Desyrel) 100 mg PO HS [facility]; Protocol Stop: 11/16/19 22:59 Last Admin: 09/28/19 21:02 Dose: 100 mg General: alert HEENT: NC/AT, PERRLA Neck: Supple, No thyromegaly Lungs: CTAB Cardiovascular: RRR, Normal S1, Normal S2 Abdomen: soft, non-tender, globular Extremities: excoriation Neurological: no change - Procedures Procedures: Procedures Procedure Code Date EGD BIOPSY SINGLE/MULTIPLE 42843 05/06/17 EXCISION OF DUODENUM, ENDO, DIAGN [id number] 05/06/17 EXCISION OF STOMACH, ENDO, DIAGN [id number] 05/06/17 Internal Medicine Assmt/Plan - Assessment Assessment: hyperlipidemia djd osteoporosis cri anemia gerd - Plan Plan: cont on statin continue on asa fall precaution nsaids prn dw rn Nutritional Asmnt/Malnutr-PDOC - Dietary Evaluation Malnutrition Findings (Please click <Entered> for more info): Nutritional Asmnt/Malnutrition Start: 09/24/19 12: 38 Text: Status: Complete Freq: Protocol: Document 09/24/19 12:38 NAYELI (Rec: 09/24/19 12:42 NAYELI JUAN CARLOS-[email or web address]) Nutritional Asmnt/Malnutrition Patient General Information Nutritional Screening Moderate Risk Diagnosis Psychosis Pertinent Medical Hx/Surgical Hx HTN, DJD, Psychosis, RT knee Replacement, Asthma/COPD, Ovarian cyst removal Subjective Information Pt is a 63-year-old female admitted on 09/17 d/t increased agitation, aggressive behavior and noted inability to walk. Pt was d/c from our facility on 09/17 and returned d/t above mentioned reasons. Pt is eating an estimated 100% of meals Per Meal/Nutrition Activity Record . Dietary is currently providing an estimated 2300 kcals and 120 gm Pro to meet 100+% kcal and 100+% Pro needs . Visited pt after lunch once finished with lunch. She stated the food was good and she was full. She asked for a nurse as she felt SOB. I grabbed the COACH WIRER to relay the message as the nurse was on break. Anthropometrics HT: 57 WT: 216 LB (98.18 kg) ABW: 155 LB (70.57 kg) BMI: 33.81 (Obese) GI/ Skin Integrity GI: WNL, Soft, Round, Non- tender BM: 09/24 x1 I/O: 1240/Not Noted Skin: WNL, Intact Oniel: 20 Diet Order: Regular Estimated Energy Needs: (Obese , ABW) 6382-4577 kcals (20-25 kcals/ kg) 60-70g Pro (0.8-1.0 g/kg) 3488-5271 ml (25-30 ml/kg) Current Diet Order/ Nutrition Support Regular Pertinent Medications Maalox (PRN), Albuterol (PRN), Lipitor, Oscal with vitamin D , MOM (PRN), Theragran, Protonix Pertinent Labs No pertinent labs/ labs charted Nutritional Hx/Data Height 5 ft 7 in Height (Calculated Centimeters) 170.2 Current Weight (lbs) 216 lb Weight (Calculated Kilograms) 98.0 Weight (Calculated Grams) 57766.0 [place] Body Weight 135 LB (61.36 kg) % [place] Body Weight 160 Body Mass Index (BMI) 33.8 Weight Status Obese GI Symptoms GI Symptoms None Last BM 09/24 x1 Skin Integrity/Comment: Skin: WNL, Intact Oniel: 20 Current %PO Good (75-100%) Estimated Nutritional Goals BEE in Kcals: Adj wt of IBW Calories/Kcals/Kg 20-25 Kcals Calculated 1634-0752 Protein: Adj wt of IBW Protein g/k.8-1.0 Protein Calculated 60-70 Fluid: ml 4111-9847 ml (25-30 ml/kg) Nutritional Problem No current Nutrition Prob Problem No nutrition diagnosis at this time. Etiology N/A Signs/Symptoms: N/A Malnutrition Related to Morbid Obesity Malnutrition related to morbid obesity No Intervention/Recommendation Comments Continue Regular diet as tolerated. Expected Outcomes/Goals Expected Outcomes/Goals 1. PO intake to continue to meet >75% of estimated nutritional needs. 2. Monitor PO intake, wt, nutrition related labs, and skin integrity. 3. F/U as low risk in 7-10 days, 10/01-10/04
[2019-09-30] MEDS: Albuterol/Ipratropium Neb 3 ML AERS HHN SCH ×5 (01:20→18:22)
[2019-09-30] MEDS: Calcium Carb/Vit D 500 mg/200 U Tab PO SCH ×2 (08:26→16:27)
[2019-09-30] MEDS: Pantoprazole 40 mg EC Tab PO SCH (08:26)
[2019-09-30] MEDS: Multivitamin Tab PO SCH (08:26)
[2019-09-30] MEDS: Lactobacillus Rhamnosus GG 15 Billion CFU CAP.SPRINK PO SCH (08:26)
[2019-09-30] MEDS: Atorvastatin Calcium 10 MG TAB PO SCH (08:26)
--- NOTE | 2019-09-30 14:20 | Internal Medicine Prog Note ---
Internal Medicine Subjective - Subjective Patient seen and examined:: with staff, chart reviewed Patient is:: awake, verbal, interactive Per staff patient has:: no adverse event, tolerating meds, refusing care Internal Medicine Objective - Physical Exam Vitals and I&O: Vital Signs Temp 97.5 F 09/30/19 06:33 Pulse 83 09/30/19 06:33 Resp 20 09/30/19 06:33 BP 134/85 09/30/19 06:33 Pulse Ox 92 09/30/19 06:33 Intake & Output 09/29/19 09/30/19 09/30/19 18:59 06:59 18:59 Intake Total 1050 Balance 1050 Intake: Oral 1050 Other: # Voids 4 # Bowel Movements 1 Stool Characteristics Formed Brown Active Medications: Current Medications Acetaminophen (Tylenol) 650 mg PO Q4HR PRN PRN Reason: Mild Pain (Scale 1-3) Stop: 11/16/19 22:13 Acetaminophen (Tylenol) 650 mg PO Q4HR PRN PRN Reason: TEMP ABOVE 100 Stop: 11/18/19 16:06 Al Hydrox/Mg Hydrox/Simethicone (Maalox) 30 ml PO Q4HR PRN PRN Reason: GI DISTRESS Stop: 11/16/19 22:13 Albuterol/Ipratropium (Duoneb Neb) 3 ml HHN Q2HRT PRN PRN Reason: Wheezing Stop: 11/16/19 22:18 Last Admin: 09/29/19 23:01 Dose: 3 ml Albuterol/Ipratropium (Duoneb Neb) 3 ml HHN Q6HRT [facility] Stop: 11/17/19 00:59 Last Admin: 09/30/19 12:56 Dose: 3 ml Aspirin (Ecotrin) 81 mg PO DAILY [facility] Stop: 11/17/19 08:59 Last Admin: 09/30/19 08:25 Dose: 81 mg Atorvastatin Calcium (Lipitor) 10 mg PO DAILY [facility]; Protocol Stop: 11/17/19 08:59 Last Admin: 09/30/19 08:26 Dose: 10 mg Calcium/Vitamin D (Oscal W/Vitamin D) 1 tab PO BID [facility] Stop: 11/17/19 08:59 Last Admin: 09/30/19 08:26 Dose: 1 tab Escitalopram Oxalate (Lexapro) 10 mg PO DAILY [facility]; Protocol Stop: 11/17/19 08:59 Last Admin: 09/30/19 08:26 Dose: 10 mg Guaifenesin/Dextromethorphan (Robitussin Dm) 5 ml PO Q6HR PRN PRN Reason: Cough Stop: 11/16/19 22:18 Last Admin: 09/23/19 04:33 Dose: 5 ml Lactobacillus Rhamnosus (Culturelle 15b) 1 each PO DAILY [facility] Stop: 11/17/19 08:59 Last Admin: 09/30/19 08:26 Dose: 1 each Lorazepam (Ativan) 0.5 mg PO Q4HR PRN; Protocol PRN Reason: Anxiety Stop: 11/24/19 10:35 Magnesium Hydroxide (Milk Of Magnesia) 30 ml PO HS PRN PRN Reason: Constipation Multivitamins/Vitamin C (Theragran) 1 tab PO DAILY [facility] Stop: 11/17/19 08:59 Last Admin: 09/30/19 08:26 Dose: 1 tab Pantoprazole Sodium (Protonix) 40 mg PO DAILY [facility] Stop: 11/17/19 08:59 Last Admin: 09/30/19 08:26 Dose: 40 mg Quetiapine Fumarate (Seroquel) 300 mg PO HS [facility]; Protocol Stop: 11/16/19 22:59 Last Admin: 09/29/19 20:14 Dose: 300 mg Quetiapine Fumarate (Seroquel) 25 mg PO BID [facility]; Protocol Stop: 11/29/19 08:59 Last Admin: 09/30/19 09:44 Dose: 25 mg Trazodone HCl (Desyrel) 100 mg PO HS [facility]; Protocol Stop: 11/16/19 22:59 Last Admin: 09/29/19 20:14 Dose: 100 mg General: alert HEENT: NC/AT, PERRLA Neck: Supple, No thyromegaly Lungs: CTAB Cardiovascular: RRR, Normal S1, Normal S2 Abdomen: soft, non-tender, globular Extremities: excoriation Neurological: no change - Procedures Procedures: Procedures Procedure Code Date EGD BIOPSY SINGLE/MULTIPLE 98827 05/06/17 EXCISION OF DUODENUM, ENDO, DIAGN [id number] 05/06/17 EXCISION OF STOMACH, ENDO, DIAGN [id number] 05/06/17 Internal Medicine Assmt/Plan - Assessment Assessment: hyperlipidemia djd osteoporosis cri anemia gerd - Plan Plan: cont on statin continue on asa fall precaution nsaids prn dw rn Nutritional Asmnt/Malnutr-PDOC - Dietary Evaluation Malnutrition Findings (Please click <Entered> for more info): Nutritional Asmnt/Malnutrition Start: 09/24/19 12: 38 Text: Status: Complete Freq: Protocol: Document 09/24/19 12:38 NAYELI (Rec: 09/24/19 12:42 NAYELI JUAN CARLOS-[email or web address]) Nutritional Asmnt/Malnutrition Patient General Information Nutritional Screening Moderate Risk Diagnosis Psychosis Pertinent Medical Hx/Surgical Hx HTN, DJD, Psychosis, RT knee Replacement, Asthma/COPD, Ovarian cyst removal Subjective Information Pt is a 63-year-old female admitted on 09/17 d/t increased agitation, aggressive behavior and noted inability to walk. Pt was d/c from our facility on 09/17 and returned d/t above mentioned reasons. Pt is eating an estimated 100% of meals Per Meal/Nutrition Activity Record . Dietary is currently providing an estimated 2300 kcals and 120 gm Pro to meet 100+% kcal and 100+% Pro needs . Visited pt after lunch once finished with lunch. She stated the food was good and she was full. She asked for a nurse as she felt SOB. I grabbed the DECISION SCIENCE ANALYST to relay the message as the nurse was on break. Anthropometrics HT: 57 WT: 216 LB (98.18 kg) ABW: 155 LB (70.57 kg) BMI: 33.81 (Obese) GI/ Skin Integrity GI: WNL, Soft, Round, Non- tender BM: 09/24 x1 I/O: 1240/Not Noted Skin: WNL, Intact Oniel: 20 Diet Order: Regular Estimated Energy Needs: (Obese , ABW) 8758-0629 kcals (20-25 kcals/ kg) 60-70g Pro (0.8-1.0 g/kg) 1185-1145 ml (25-30 ml/kg) Current Diet Order/ Nutrition Support Regular Pertinent Medications Maalox (PRN), Albuterol (PRN), Lipitor, Oscal with vitamin D , MOM (PRN), Theragran, Protonix Pertinent Labs No pertinent labs/ labs charted Nutritional Hx/Data Height 1.7 m Height (Calculated Centimeters) 170.2 Current Weight (lbs) 97.976 kg Weight (Calculated Kilograms) 98.0 Weight (Calculated Grams) 13578.0 [place] Body Weight 135 LB (61.36 kg) % [place] Body Weight 160 Body Mass Index (BMI) 33.8 Weight Status Obese GI Symptoms GI Symptoms None Last BM 09/24 x1 Skin Integrity/Comment: Skin: WNL, Intact Oniel: 20 Current %PO Good (75-100%) Estimated Nutritional Goals BEE in Kcals: Adj wt of IBW Calories/Kcals/Kg 20-25 Kcals Calculated 3387-3482 Protein: Adj wt of IBW Protein g/k.8-1.0 Protein Calculated 60-70 Fluid: ml 9033-0932 ml (25-30 ml/kg) Nutritional Problem No current Nutrition Prob Problem No nutrition diagnosis at this time. Etiology N/A Signs/Symptoms: N/A Malnutrition Related to Morbid Obesity Malnutrition related to morbid obesity No Intervention/Recommendation Comments Continue Regular diet as tolerated. Expected Outcomes/Goals Expected Outcomes/Goals 1. PO intake to continue to meet >75% of estimated nutritional needs. 2. Monitor PO intake, wt, nutrition related labs, and skin integrity. 3. F/U as low risk in 7-10 days, 10/01-10/04
[2019-09-30] MEDS: Albuterol/Ipratropium Neb 3 ML AERS HHN PRN (21:00)
[2019-10-01] MEDS: Albuterol/Ipratropium Neb 3 ML AERS HHN SCH ×4 (01:14→18:00)
[2019-10-01] MEDS: Lactobacillus Rhamnosus GG 15 Billion CFU CAP.SPRINK PO SCH (08:54)
[2019-10-01] MEDS: Pantoprazole 40 mg EC Tab PO SCH (08:54)
[2019-10-01] MEDS: Multivitamin Tab PO SCH (08:54)
[2019-10-01] MEDS: Calcium Carb/Vit D 500 mg/200 U Tab PO SCH ×2 (08:54→17:52)
[2019-10-01] MEDS: Atorvastatin Calcium 10 MG TAB PO SCH (08:55)
[2019-10-01] MEDS: Albuterol/Ipratropium Neb 3 ML AERS HHN PRN ×2 (10:23→21:28)
--- NOTE | 2019-10-01 14:41 | Internal Medicine Prog Note ---
Internal Medicine Subjective - Subjective Patient seen and examined:: with staff, chart reviewed Patient is:: awake, verbal, interactive Per staff patient has:: no adverse event, tolerating meds, refusing care Internal Medicine Objective - Physical Exam Vitals and I&O: Vital Signs Temp 97.4 F 10/01/19 06:12 Pulse 74 10/01/19 06:12 Resp 20 10/01/19 08:00 BP 98/65 10/01/19 06:12 Pulse Ox 94 10/01/19 06:12 Intake & Output 09/30/19 10/01/19 10/01/19 18:59 06:59 18:59 Intake Total 1100 Balance 1100 Intake: Oral 1100 Other: # Voids 4 # Bowel Movements 1 Stool Characteristics Formed Formed Brown Brown Active Medications: Current Medications Acetaminophen (Tylenol) 650 mg PO Q4HR PRN PRN Reason: Mild Pain (Scale 1-3) Stop: 11/16/19 22:13 Acetaminophen (Tylenol) 650 mg PO Q4HR PRN PRN Reason: TEMP ABOVE 100 Stop: 11/18/19 16:06 Al Hydrox/Mg Hydrox/Simethicone (Maalox) 30 ml PO Q4HR PRN PRN Reason: GI DISTRESS Stop: 11/16/19 22:13 Albuterol/Ipratropium (Duoneb Neb) 3 ml HHN Q2HRT PRN PRN Reason: Wheezing Stop: 11/16/19 22:18 Last Admin: 10/01/19 10:23 Dose: 3 ml Albuterol/Ipratropium (Duoneb Neb) 3 ml HHN Q6HRT [facility] Stop: 11/17/19 00:59 Last Admin: 10/01/19 06:05 Dose: 3 ml Aspirin (Ecotrin) 81 mg PO DAILY [facility] Stop: 11/17/19 08:59 Last Admin: 10/01/19 08:54 Dose: 81 mg Atorvastatin Calcium (Lipitor) 10 mg PO DAILY [facility]; Protocol Stop: 11/17/19 08:59 Last Admin: 10/01/19 08:55 Dose: 10 mg Calcium/Vitamin D (Oscal W/Vitamin D) 1 tab PO BID [facility] Stop: 11/17/19 08:59 Last Admin: 10/01/19 08:54 Dose: 1 tab Escitalopram Oxalate (Lexapro) 10 mg PO DAILY [facility]; Protocol Stop: 11/17/19 08:59 Last Admin: 10/01/19 08:54 Dose: 10 mg Guaifenesin/Dextromethorphan (Robitussin Dm) 5 ml PO Q6HR PRN PRN Reason: Cough Stop: 11/16/19 22:18 Last Admin: 09/23/19 04:33 Dose: 5 ml Lactobacillus Rhamnosus (Culturelle 15b) 1 each PO DAILY [facility] Stop: 11/17/19 08:59 Last Admin: 10/01/19 08:54 Dose: 1 each Lorazepam (Ativan) 0.5 mg PO Q4HR PRN; Protocol PRN Reason: Anxiety Stop: 11/24/19 10:35 Magnesium Hydroxide (Milk Of Magnesia) 30 ml PO HS PRN PRN Reason: Constipation Multivitamins/Vitamin C (Theragran) 1 tab PO DAILY [facility] Stop: 11/17/19 08:59 Last Admin: 10/01/19 08:54 Dose: 1 tab Pantoprazole Sodium (Protonix) 40 mg PO DAILY [facility] Stop: 11/17/19 08:59 Last Admin: 10/01/19 08:54 Dose: 40 mg Quetiapine Fumarate (Seroquel) 300 mg PO HS [facility]; Protocol Stop: 11/16/19 22:59 Last Admin: 09/30/19 20:27 Dose: 300 mg Quetiapine Fumarate (Seroquel) 25 mg PO BID [facility]; Protocol Stop: 11/29/19 08:59 Last Admin: 10/01/19 08:55 Dose: 25 mg Trazodone HCl (Desyrel) 100 mg PO HS [facility]; Protocol Stop: 11/16/19 22:59 Last Admin: 09/30/19 20:27 Dose: 100 mg General: alert HEENT: NC/AT, PERRLA Neck: Supple, No thyromegaly Lungs: CTAB Cardiovascular: RRR, Normal S1, Normal S2 Abdomen: soft, non-tender, globular Extremities: excoriation Neurological: no change - Procedures Procedures: Procedures Procedure Code Date EGD BIOPSY SINGLE/MULTIPLE 76441 05/06/17 EXCISION OF DUODENUM, ENDO, DIAGN [id number] 05/06/17 EXCISION OF STOMACH, ENDO, DIAGN [id number] 05/06/17 Internal Medicine Assmt/Plan - Assessment Assessment: hyperlipidemia djd osteoporosis cri anemia gerd - Plan Plan: cont on statin continue on asa fall precaution nsaids prn dw rn Nutritional Asmnt/Malnutr-PDOC - Dietary Evaluation Malnutrition Findings (Please click <Entered> for more info): Nutritional Asmnt/Malnutrition Start: 09/24/19 12: 38 Text: Status: Complete Freq: Protocol: Document 09/24/19 12:38 NAYELI (Rec: 09/24/19 12:42 NAYELI JUAN CARLOS-[email or web address]) Nutritional Asmnt/Malnutrition Patient General Information Nutritional Screening Moderate Risk Diagnosis Psychosis Pertinent Medical Hx/Surgical Hx HTN, DJD, Psychosis, RT knee Replacement, Asthma/COPD, Ovarian cyst removal Subjective Information Pt is a 63-year-old female admitted on 09/17 d/t increased agitation, aggressive behavior and noted inability to walk. Pt was d/c from our facility on 09/17 and returned d/t above mentioned reasons. Pt is eating an estimated 100% of meals Per Meal/Nutrition Activity Record . Dietary is currently providing an estimated 2300 kcals and 120 gm Pro to meet 100+% kcal and 100+% Pro needs . Visited pt after lunch once finished with lunch. She stated the food was good and she was full. She asked for a nurse as she felt SOB. I grabbed the CRIB ATTENDANT to relay the message as the nurse was on break. Anthropometrics HT: 57 WT: 216 LB (98.18 kg) ABW: 155 LB (70.57 kg) BMI: 33.81 (Obese) GI/ Skin Integrity GI: WNL, Soft, Round, Non- tender BM: 09/24 x1 I/O: 1240/Not Noted Skin: WNL, Intact Oniel: 20 Diet Order: Regular Estimated Energy Needs: (Obese , ABW) 8259-3916 kcals (20-25 kcals/ kg) 60-70g Pro (0.8-1.0 g/kg) 7840-4682 ml (25-30 ml/kg) Current Diet Order/ Nutrition Support Regular Pertinent Medications Maalox (PRN), Albuterol (PRN), Lipitor, Oscal with vitamin D , MOM (PRN), Theragran, Protonix Pertinent Labs No pertinent labs/ labs charted Nutritional Hx/Data Height 1.7 m Height (Calculated Centimeters) 170.2 Current Weight (lbs) 97.976 kg Weight (Calculated Kilograms) 98.0 Weight (Calculated Grams) 16750.0 [place] Body Weight 135 LB (61.36 kg) % [place] Body Weight 160 Body Mass Index (BMI) 33.8 Weight Status Obese GI Symptoms GI Symptoms None Last BM 09/24 x1 Skin Integrity/Comment: Skin: WNL, Intact Oniel: 20 Current %PO Good (75-100%) Estimated Nutritional Goals BEE in Kcals: Adj wt of IBW Calories/Kcals/Kg 20-25 Kcals Calculated 3673-0972 Protein: Adj wt of IBW Protein g/k.8-1.0 Protein Calculated 60-70 Fluid: ml 6135-4491 ml (25-30 ml/kg) Nutritional Problem No current Nutrition Prob Problem No nutrition diagnosis at this time. Etiology N/A Signs/Symptoms: N/A Malnutrition Related to Morbid Obesity Malnutrition related to morbid obesity No Intervention/Recommendation Comments Continue Regular diet as tolerated. Expected Outcomes/Goals Expected Outcomes/Goals 1. PO intake to continue to meet >75% of estimated nutritional needs. 2. Monitor PO intake, wt, nutrition related labs, and skin integrity. 3. F/U as low risk in 7-10 days, 10/01-10/04
[2019-10-02] MEDS: Albuterol/Ipratropium Neb 3 ML AERS HHN SCH ×4 (00:17→20:50)
[2019-10-02] MEDS: Lactobacillus Rhamnosus GG 15 Billion CFU CAP.SPRINK PO SCH (08:45)
[2019-10-02] MEDS: Multivitamin Tab PO SCH (08:45)
[2019-10-02] MEDS: Calcium Carb/Vit D 500 mg/200 U Tab PO SCH ×2 (08:45→16:46)
[2019-10-02] MEDS: Pantoprazole 40 mg EC Tab PO SCH (08:45)
[2019-10-02] MEDS: Atorvastatin Calcium 10 MG TAB PO SCH (08:45)
[2019-10-02] MEDS: Albuterol/Ipratropium Neb 3 ML AERS HHN PRN ×3 (10:35→21:27)
--- NOTE | 2019-10-02 16:36 | Internal Medicine Prog Note ---
Internal Medicine Subjective - Subjective Patient seen and examined:: with staff, chart reviewed Patient is:: awake, verbal, interactive Per staff patient has:: no adverse event, tolerating meds, refusing care Internal Medicine Objective - Physical Exam Vitals and I&O: Vital Signs Temp 97.1 F 10/02/19 14:50 Pulse 89 10/02/19 14:50 Resp 20 10/02/19 14:50 BP 145/89 10/02/19 14:50 Pulse Ox 97 10/02/19 14:50 Intake & Output 10/01/19 10/02/19 10/02/19 18:59 06:59 18:59 Intake Total 1100 120 Balance 1100 120 Intake: Oral 1100 120 Other: # Voids 3 # Bowel Movements 1 0 Stool Characteristics Formed Brown Active Medications: Current Medications Acetaminophen (Tylenol) 650 mg PO Q4HR PRN PRN Reason: Mild Pain (Scale 1-3) Stop: 11/16/19 22:13 Acetaminophen (Tylenol) 650 mg PO Q4HR PRN PRN Reason: TEMP ABOVE 100 Stop: 11/18/19 16:06 Al Hydrox/Mg Hydrox/Simethicone (Maalox) 30 ml PO Q4HR PRN PRN Reason: GI DISTRESS Stop: 11/16/19 22:13 Albuterol/Ipratropium (Duoneb Neb) 3 ml HHN Q2HRT PRN PRN Reason: Wheezing Stop: 11/16/19 22:18 Last Admin: 10/02/19 10:35 Dose: 3 ml Albuterol/Ipratropium (Duoneb Neb) 3 ml HHN Q6HRT [facility] Stop: 11/17/19 00:59 Last Admin: 10/02/19 15:44 Dose: Not Given Aspirin (Ecotrin) 81 mg PO DAILY [facility] Stop: 11/17/19 08:59 Last Admin: 10/02/19 08:45 Dose: 81 mg Atorvastatin Calcium (Lipitor) 10 mg PO DAILY [facility]; Protocol Stop: 11/17/19 08:59 Last Admin: 10/02/19 08:45 Dose: 10 mg Calcium/Vitamin D (Oscal W/Vitamin D) 1 tab PO BID [facility] Stop: 11/17/19 08:59 Last Admin: 10/02/19 08:45 Dose: 1 tab Escitalopram Oxalate (Lexapro) 10 mg PO DAILY [facility]; Protocol Stop: 11/17/19 08:59 Last Admin: 10/02/19 08:45 Dose: 10 mg Guaifenesin/Dextromethorphan (Robitussin Dm) 5 ml PO Q6HR PRN PRN Reason: Cough Stop: 11/16/19 22:18 Last Admin: 09/23/19 04:33 Dose: 5 ml Lactobacillus Rhamnosus (Culturelle 15b) 1 each PO DAILY [facility] Stop: 11/17/19 08:59 Last Admin: 10/02/19 08:45 Dose: 1 each Lorazepam (Ativan) 0.5 mg PO Q4HR PRN; Protocol PRN Reason: Anxiety Stop: 11/24/19 10:35 Magnesium Hydroxide (Milk Of Magnesia) 30 ml PO HS PRN PRN Reason: Constipation Multivitamins/Vitamin C (Theragran) 1 tab PO DAILY [facility] Stop: 11/17/19 08:59 Last Admin: 10/02/19 08:45 Dose: 1 tab Pantoprazole Sodium (Protonix) 40 mg PO DAILY [facility] Stop: 11/17/19 08:59 Last Admin: 10/02/19 08:45 Dose: 40 mg Quetiapine Fumarate (Seroquel) 300 mg PO HS [facility]; Protocol Stop: 11/16/19 22:59 Last Admin: 10/01/19 20:15 Dose: 300 mg Quetiapine Fumarate (Seroquel) 25 mg PO BID [facility]; Protocol Stop: 11/29/19 08:59 Last Admin: 10/02/19 08:45 Dose: 25 mg Trazodone HCl (Desyrel) 100 mg PO HS [facility]; Protocol Stop: 11/16/19 22:59 Last Admin: 10/01/19 20:15 Dose: 100 mg General: alert HEENT: NC/AT, PERRLA Neck: Supple, No thyromegaly Lungs: CTAB Cardiovascular: RRR, Normal S1, Normal S2 Abdomen: soft, non-tender, globular Extremities: excoriation Neurological: no change - Procedures Procedures: Procedures Procedure Code Date EGD BIOPSY SINGLE/MULTIPLE 90479 05/06/17 EXCISION OF DUODENUM, ENDO, DIAGN [id number] 05/06/17 EXCISION OF STOMACH, ENDO, DIAGN [id number] 05/06/17 Internal Medicine Assmt/Plan - Assessment Assessment: hyperlipidemia djd osteoporosis cri anemia gerd - Plan Plan: cont on statin continue on asa fall precaution nsaids prn dw rn Nutritional Asmnt/Malnutr-PDOC - Dietary Evaluation Malnutrition Findings (Please click <Entered> for more info): Nutritional Asmnt/Malnutrition Start: 09/24/19 12: 38 Text: Status: Complete Freq: Protocol: Document 09/24/19 12:38 NAYELI (Rec: 09/24/19 12:42 NAYELI JUAN [email or web address]) Nutritional Asmnt/Malnutrition Patient General Information Nutritional Screening Moderate Risk Diagnosis Psychosis Pertinent Medical Hx/Surgical Hx HTN, DJD, Psychosis, RT knee Replacement, Asthma/COPD, Ovarian cyst removal Subjective Information Pt is a 63-year-old female admitted on 09/17 d/t increased agitation, aggressive behavior and noted inability to walk. Pt was d/c from our facility on 09/17 and returned d/t above mentioned reasons. Pt is eating an estimated 100% of meals Per Meal/Nutrition Activity Record . Dietary is currently providing an estimated 2300 kcals and 120 gm Pro to meet 100+% kcal and 100+% Pro needs . Visited pt after lunch once finished with lunch. She stated the food was good and she was full. She asked for a nurse as she felt SOB. I grabbed the BILL BOARD POSTER to relay the message as the nurse was on break. Anthropometrics HT: 57 WT: 216 LB (98.18 kg) ABW: 155 LB (70.57 kg) BMI: 33.81 (Obese) GI/ Skin Integrity GI: WNL, Soft, Round, Non- tender BM: 09/24 x1 I/O: 1240/Not Noted Skin: WNL, Intact Oniel: 20 Diet Order: Regular Estimated Energy Needs: (Obese , ABW) 0844-3638 kcals (20-25 kcals/ kg) 60-70g Pro (0.8-1.0 g/kg) 2548-9614 ml (25-30 ml/kg) Current Diet Order/ Nutrition Support Regular Pertinent Medications Maalox (PRN), Albuterol (PRN), Lipitor, Oscal with vitamin D , MOM (PRN), Theragran, Protonix Pertinent Labs No pertinent labs/ labs charted Nutritional Hx/Data Height 1.7 m Height (Calculated Centimeters) 170.2 Current Weight (lbs) 97.976 kg Weight (Calculated Kilograms) 98.0 Weight (Calculated Grams) 42220.0 [place] Body Weight 135 LB (61.36 kg) % [place] Body Weight 160 Body Mass Index (BMI) 33.8 Weight Status Obese GI Symptoms GI Symptoms None Last BM 09/24 x1 Skin Integrity/Comment: Skin: WNL, Intact Oniel: 20 Current %PO Good (75-100%) Estimated Nutritional Goals BEE in Kcals: Adj wt of IBW Calories/Kcals/Kg 20-25 Kcals Calculated 0665-1950 Protein: Adj wt of IBW Protein g/k.8-1.0 Protein Calculated 60-70 Fluid: ml 0500-4838 ml (25-30 ml/kg) Nutritional Problem No current Nutrition Prob Problem No nutrition diagnosis at this time. Etiology N/A Signs/Symptoms: N/A Malnutrition Related to Morbid Obesity Malnutrition related to morbid obesity No Intervention/Recommendation Comments Continue Regular diet as tolerated. Expected Outcomes/Goals Expected Outcomes/Goals 1. PO intake to continue to meet >75% of estimated nutritional needs. 2. Monitor PO intake, wt, nutrition related labs, and skin integrity. 3. F/U as low risk in 7-10 days, 10/01-10/04
[2019-10-03] MEDS: Albuterol/Ipratropium Neb 3 ML AERS HHN SCH ×4 (01:03→18:09)
[2019-10-03] MEDS: Albuterol/Ipratropium Neb 3 ML AERS HHN PRN ×4 (05:34→22:21)
[2019-10-03] MEDS: Multivitamin Tab PO SCH (09:08)
[2019-10-03] MEDS: Atorvastatin Calcium 10 MG TAB PO SCH (09:08)
[2019-10-03] MEDS: Pantoprazole 40 mg EC Tab PO SCH (09:08)
[2019-10-03] MEDS: Calcium Carb/Vit D 500 mg/200 U Tab PO SCH ×2 (09:08→16:14)
[2019-10-03] MEDS: Lactobacillus Rhamnosus GG 15 Billion CFU CAP.SPRINK PO SCH (09:08)
--- NOTE | 2019-10-03 14:47 | Internal Medicine Prog Note ---
Internal Medicine Subjective - Subjective Patient seen and examined:: with staff, chart reviewed Patient is:: awake, verbal, interactive Per staff patient has:: no adverse event, tolerating meds, refusing care Internal Medicine Objective - Physical Exam Vitals and I&O: Vital Signs Temp 97.5 F 10/03/19 06:34 Pulse 86 10/03/19 06:34 Resp 20 10/03/19 08:00 BP 151/60 10/03/19 06:34 Pulse Ox 98 10/03/19 06:34 Intake & Output 10/02/19 10/03/19 10/03/19 18:59 06:59 18:59 Intake Total 800 120 Balance 800 120 Intake: Oral 800 120 Other: # Voids 3 3 # Bowel Movements 1 Stool Characteristics Formed Active Medications: Current Medications Acetaminophen (Tylenol) 650 mg PO Q4HR PRN PRN Reason: Mild Pain (Scale 1-3) Stop: 11/16/19 22:13 Acetaminophen (Tylenol) 650 mg PO Q4HR PRN PRN Reason: TEMP ABOVE 100 Stop: 11/18/19 16:06 Al Hydrox/Mg Hydrox/Simethicone (Maalox) 30 ml PO Q4HR PRN PRN Reason: GI DISTRESS Stop: 11/16/19 22:13 Albuterol/Ipratropium (Duoneb Neb) 3 ml HHN Q2HRT PRN PRN Reason: Wheezing Stop: 11/16/19 22:18 Last Admin: 10/03/19 14:41 Dose: 3 ml Albuterol/Ipratropium (Duoneb Neb) 3 ml HHN Q6HRT [facility] Stop: 11/17/19 00:59 Last Admin: 10/03/19 14:06 Dose: Not Given Aspirin (Ecotrin) 81 mg PO DAILY [facility] Stop: 11/17/19 08:59 Last Admin: 10/03/19 09:08 Dose: 81 mg Atorvastatin Calcium (Lipitor) 10 mg PO DAILY [facility]; Protocol Stop: 11/17/19 08:59 Last Admin: 10/03/19 09:08 Dose: 10 mg Calcium/Vitamin D (Oscal W/Vitamin D) 1 tab PO BID [facility] Stop: 11/17/19 08:59 Last Admin: 10/03/19 09:08 Dose: 1 tab Escitalopram Oxalate (Lexapro) 10 mg PO DAILY [facility]; Protocol Stop: 11/17/19 08:59 Last Admin: 10/03/19 09:08 Dose: 10 mg Guaifenesin/Dextromethorphan (Robitussin Dm) 5 ml PO Q6HR PRN PRN Reason: Cough Stop: 11/16/19 22:18 Last Admin: 09/23/19 04:33 Dose: 5 ml Lactobacillus Rhamnosus (Culturelle 15b) 1 each PO DAILY [facility] Stop: 11/17/19 08:59 Last Admin: 10/03/19 09:08 Dose: 1 each Lorazepam (Ativan) 0.5 mg PO Q4HR PRN; Protocol PRN Reason: Anxiety Stop: 11/24/19 10:35 Magnesium Hydroxide (Milk Of Magnesia) 30 ml PO HS PRN PRN Reason: Constipation Multivitamins/Vitamin C (Theragran) 1 tab PO DAILY [facility] Stop: 11/17/19 08:59 Last Admin: 10/03/19 09:08 Dose: 1 tab Pantoprazole Sodium (Protonix) 40 mg PO DAILY [facility] Stop: 11/17/19 08:59 Last Admin: 10/03/19 09:08 Dose: 40 mg Quetiapine Fumarate (Seroquel) 300 mg PO HS [facility]; Protocol Stop: 11/16/19 22:59 Last Admin: 10/02/19 20:42 Dose: 300 mg Quetiapine Fumarate (Seroquel) 25 mg PO BID [facility]; Protocol Stop: 11/29/19 08:59 Last Admin: 10/03/19 09:08 Dose: 25 mg Trazodone HCl (Desyrel) 100 mg PO HS [facility]; Protocol Stop: 11/16/19 22:59 Last Admin: 10/02/19 20:42 Dose: 100 mg General: alert HEENT: NC/AT, PERRLA Neck: Supple, No thyromegaly Lungs: CTAB Cardiovascular: RRR, Normal S1, Normal S2 Abdomen: soft, non-tender, globular Extremities: excoriation Neurological: no change - Procedures Procedures: Procedures Procedure Code Date EGD BIOPSY SINGLE/MULTIPLE 98457 05/06/17 EXCISION OF DUODENUM, ENDO, DIAGN [id number] 05/06/17 EXCISION OF STOMACH, ENDO, DIAGN [id number] 05/06/17 Internal Medicine Assmt/Plan - Assessment Assessment: hyperlipidemia djd osteoporosis cri anemia gerd - Plan Plan: cont on statin continue on asa fall precaution nsaids prn dw rn Nutritional Asmnt/Malnutr-PDOC - Dietary Evaluation Malnutrition Findings (Please click <Entered> for more info): Nutritional Asmnt/Malnutrition Start: 09/24/19 12: 38 Text: Status: Complete Freq: Protocol: Document 09/24/19 12:38 NAYELI (Rec: 09/24/19 12:42 NAYELI JUAN [email or web address]) Nutritional Asmnt/Malnutrition Patient General Information Nutritional Screening Moderate Risk Diagnosis Psychosis Pertinent Medical Hx/Surgical Hx HTN, DJD, Psychosis, RT knee Replacement, Asthma/COPD, Ovarian cyst removal Subjective Information Pt is a 63-year-old female admitted on 09/17 d/t increased agitation, aggressive behavior and noted inability to walk. Pt was d/c from our facility on 09/17 and returned d/t above mentioned reasons. Pt is eating an estimated 100% of meals Per Meal/Nutrition Activity Record . Dietary is currently providing an estimated 2300 kcals and 120 gm Pro to meet 100+% kcal and 100+% Pro needs . Visited pt after lunch once finished with lunch. She stated the food was good and she was full. She asked for a nurse as she felt SOB. I grabbed the DINING SERVICES DIRECTOR to relay the message as the nurse was on break. Anthropometrics HT: 57 WT: 216 LB (98.18 kg) ABW: 155 LB (70.57 kg) BMI: 33.81 (Obese) GI/ Skin Integrity GI: WNL, Soft, Round, Non- tender BM: 09/24 x1 I/O: 1240/Not Noted Skin: WNL, Intact Oniel: 20 Diet Order: Regular Estimated Energy Needs: (Obese , ABW) 5887-9459 kcals (20-25 kcals/ kg) 60-70g Pro (0.8-1.0 g/kg) 2694-0788 ml (25-30 ml/kg) Current Diet Order/ Nutrition Support Regular Pertinent Medications Maalox (PRN), Albuterol (PRN), Lipitor, Oscal with vitamin D , MOM (PRN), Theragran, Protonix Pertinent Labs No pertinent labs/ labs charted Nutritional Hx/Data Height 1.7 m Height (Calculated Centimeters) 170.2 Current Weight (lbs) 97.976 kg Weight (Calculated Kilograms) 98.0 Weight (Calculated Grams) 94986.0 [place] Body Weight 135 LB (61.36 kg) % [place] Body Weight 160 Body Mass Index (BMI) 33.8 Weight Status Obese GI Symptoms GI Symptoms None Last BM 09/24 x1 Skin Integrity/Comment: Skin: WNL, Intact Oniel: 20 Current %PO Good (75-100%) Estimated Nutritional Goals BEE in Kcals: Adj wt of IBW Calories/Kcals/Kg 20-25 Kcals Calculated 3709-2698 Protein: Adj wt of IBW Protein g/k.8-1.0 Protein Calculated 60-70 Fluid: ml 4545-3018 ml (25-30 ml/kg) Nutritional Problem No current Nutrition Prob Problem No nutrition diagnosis at this time. Etiology N/A Signs/Symptoms: N/A Malnutrition Related to Morbid Obesity Malnutrition related to morbid obesity No Intervention/Recommendation Comments Continue Regular diet as tolerated. Expected Outcomes/Goals Expected Outcomes/Goals 1. PO intake to continue to meet >75% of estimated nutritional needs. 2. Monitor PO intake, wt, nutrition related labs, and skin integrity. 3. F/U as low risk in 7-10 days, 10/01-10/04
[2019-10-04] MEDS: Albuterol/Ipratropium Neb 3 ML AERS HHN SCH ×5 (01:12→22:47)
[2019-10-04] MEDS: Calcium Carb/Vit D 500 mg/200 U Tab PO SCH ×2 (08:23→16:47)
[2019-10-04] MEDS: Pantoprazole 40 mg EC Tab PO SCH (08:23)
[2019-10-04] MEDS: Lactobacillus Rhamnosus GG 15 Billion CFU CAP.SPRINK PO SCH (08:23)
[2019-10-04] MEDS: Atorvastatin Calcium 10 MG TAB PO SCH (08:23)
[2019-10-04] MEDS: Multivitamin Tab PO SCH (08:23)
--- NOTE | 2019-10-04 14:41 | Internal Medicine Prog Note ---
Internal Medicine Subjective - Subjective Patient seen and examined:: with staff, chart reviewed Patient is:: awake, verbal, interactive Per staff patient has:: no adverse event, tolerating meds, refusing care Internal Medicine Objective - Physical Exam Vitals and I&O: Vital Signs Temp 97.2 F 10/04/19 06:44 Pulse 92 10/04/19 06:44 Resp 19 10/04/19 08:00 BP 155/98 10/04/19 06:44 Pulse Ox 98 10/04/19 06:44 Intake & Output 10/03/19 10/04/19 10/04/19 18:59 06:59 18:59 Intake Total 1100 120 Balance 1100 120 Intake: Oral 1100 120 Other: # Voids 4 3 # Bowel Movements 1 Stool Characteristics Formed Active Medications: Current Medications Acetaminophen (Tylenol) 650 mg PO Q4HR PRN PRN Reason: Mild Pain (Scale 1-3) Stop: 11/16/19 22:13 Acetaminophen (Tylenol) 650 mg PO Q4HR PRN PRN Reason: TEMP ABOVE 100 Stop: 11/18/19 16:06 Al Hydrox/Mg Hydrox/Simethicone (Maalox) 30 ml PO Q4HR PRN PRN Reason: GI DISTRESS Stop: 11/16/19 22:13 Albuterol/Ipratropium (Duoneb Neb) 3 ml HHN Q2HRT PRN PRN Reason: Wheezing Stop: 11/16/19 22:18 Last Admin: 10/03/19 22:21 Dose: 3 ml Albuterol/Ipratropium (Duoneb Neb) 3 ml HHN Q6HRT [facility] Stop: 11/17/19 00:59 Last Admin: 10/04/19 14:13 Dose: Not Given Aspirin (Ecotrin) 81 mg PO DAILY [facility] Stop: 11/17/19 08:59 Last Admin: 10/04/19 08:23 Dose: 81 mg Atorvastatin Calcium (Lipitor) 10 mg PO DAILY [facility]; Protocol Stop: 11/17/19 08:59 Last Admin: 10/04/19 08:23 Dose: 10 mg Calcium/Vitamin D (Oscal W/Vitamin D) 1 tab PO BID [facility] Stop: 11/17/19 08:59 Last Admin: 10/04/19 08:23 Dose: 1 tab Escitalopram Oxalate (Lexapro) 10 mg PO DAILY [facility]; Protocol Stop: 11/17/19 08:59 Last Admin: 10/04/19 08:23 Dose: 10 mg Guaifenesin/Dextromethorphan (Robitussin Dm) 5 ml PO Q6HR PRN PRN Reason: Cough Stop: 11/16/19 22:18 Last Admin: 09/23/19 04:33 Dose: 5 ml Lactobacillus Rhamnosus (Culturelle 15b) 1 each PO DAILY [facility] Stop: 11/17/19 08:59 Last Admin: 10/04/19 08:23 Dose: 1 each Lorazepam (Ativan) 0.5 mg PO Q4HR PRN; Protocol PRN Reason: Anxiety Stop: 11/24/19 10:35 Magnesium Hydroxide (Milk Of Magnesia) 30 ml PO HS PRN PRN Reason: Constipation Multivitamins/Vitamin C (Theragran) 1 tab PO DAILY [facility] Stop: 11/17/19 08:59 Last Admin: 10/04/19 08:23 Dose: 1 tab Pantoprazole Sodium (Protonix) 40 mg PO DAILY [facility] Stop: 11/17/19 08:59 Last Admin: 10/04/19 08:23 Dose: 40 mg Quetiapine Fumarate (Seroquel) 300 mg PO HS [facility]; Protocol Stop: 11/16/19 22:59 Last Admin: 10/03/19 21:54 Dose: Not Given Quetiapine Fumarate (Seroquel) 50 mg PO BID [facility]; Protocol Stop: 12/03/19 08:59 Last Admin: 10/04/19 08:23 Dose: 50 mg Trazodone HCl (Desyrel) 100 mg PO HS [facility]; Protocol Stop: 11/16/19 22:59 Last Admin: 10/03/19 21:54 Dose: Not Given General: alert HEENT: NC/AT, PERRLA Neck: Supple, No thyromegaly Lungs: CTAB Cardiovascular: RRR, Normal S1, Normal S2 Abdomen: soft, non-tender, globular Extremities: excoriation Neurological: no change - Procedures Procedures: Procedures Procedure Code Date EGD BIOPSY SINGLE/MULTIPLE 21807 05/06/17 EXCISION OF DUODENUM, ENDO, DIAGN [id number] 05/06/17 EXCISION OF STOMACH, ENDO, DIAGN [id number] 05/06/17 Internal Medicine Assmt/Plan - Assessment Assessment: hyperlipidemia djd osteoporosis cri anemia gerd - Plan Plan: cont on statin continue on asa fall precaution nsaids prn dw rn Nutritional Asmnt/Malnutr-PDOC - Dietary Evaluation Malnutrition Findings (Please click <Entered> for more info): Nutritional Asmnt/Malnutrition Start: 09/24/19 12: 38 Text: Status: Complete Freq: Protocol: Document 09/24/19 12:38 NAYELI (Rec: 09/24/19 12:42 NAYELI JUAN [email or web address]) Nutritional Asmnt/Malnutrition Patient General Information Nutritional Screening Moderate Risk Diagnosis Psychosis Pertinent Medical Hx/Surgical Hx HTN, DJD, Psychosis, RT knee Replacement, Asthma/COPD, Ovarian cyst removal Subjective Information Pt is a 63-year-old female admitted on 09/17 d/t increased agitation, aggressive behavior and noted inability to walk. Pt was d/c from our facility on 09/17 and returned d/t above mentioned reasons. Pt is eating an estimated 100% of meals Per Meal/Nutrition Activity Record . Dietary is currently providing an estimated 2300 kcals and 120 gm Pro to meet 100+% kcal and 100+% Pro needs . Visited pt after lunch once finished with lunch. She stated the food was good and she was full. She asked for a nurse as she felt SOB. I grabbed the GOLD LEAF LABORER to relay the message as the nurse was on break. Anthropometrics HT: 57 WT: 216 LB (98.18 kg) ABW: 155 LB (70.57 kg) BMI: 33.81 (Obese) GI/ Skin Integrity GI: WNL, Soft, Round, Non- tender BM: 09/24 x1 I/O: 1240/Not Noted Skin: WNL, Intact Oniel: 20 Diet Order: Regular Estimated Energy Needs: (Obese , ABW) 1230-6067 kcals (20-25 kcals/ kg) 60-70g Pro (0.8-1.0 g/kg) 4826-8312 ml (25-30 ml/kg) Current Diet Order/ Nutrition Support Regular Pertinent Medications Maalox (PRN), Albuterol (PRN), Lipitor, Oscal with vitamin D , MOM (PRN), Theragran, Protonix Pertinent Labs No pertinent labs/ labs charted Nutritional Hx/Data Height 1.7 m Height (Calculated Centimeters) 170.2 Current Weight (lbs) 97.976 kg Weight (Calculated Kilograms) 98.0 Weight (Calculated Grams) 47829.0 [place] Body Weight 135 LB (61.36 kg) % [place] Body Weight 160 Body Mass Index (BMI) 33.8 Weight Status Obese GI Symptoms GI Symptoms None Last BM 09/24 x1 Skin Integrity/Comment: Skin: WNL, Intact Oniel: 20 Current %PO Good (75-100%) Estimated Nutritional Goals BEE in Kcals: Adj wt of IBW Calories/Kcals/Kg 20-25 Kcals Calculated 3124-0087 Protein: Adj wt of IBW Protein g/k.8-1.0 Protein Calculated 60-70 Fluid: ml 8020-5481 ml (25-30 ml/kg) Nutritional Problem No current Nutrition Prob Problem No nutrition diagnosis at this time. Etiology N/A Signs/Symptoms: N/A Malnutrition Related to Morbid Obesity Malnutrition related to morbid obesity No Intervention/Recommendation Comments Continue Regular diet as tolerated. Expected Outcomes/Goals Expected Outcomes/Goals 1. PO intake to continue to meet >75% of estimated nutritional needs. 2. Monitor PO intake, wt, nutrition related labs, and skin integrity. 3. F/U as low risk in 7-10 days, 10/01-10/04
[2019-10-05] MEDS: Albuterol/Ipratropium Neb 3 ML AERS HHN SCH ×3 (01:17→13:21)
[2019-10-05] MEDS: Calcium Carb/Vit D 500 mg/200 U Tab PO SCH ×2 (09:27→18:17)
[2019-10-05] MEDS: Pantoprazole 40 mg EC Tab PO SCH (09:27)
[2019-10-05] MEDS: Lactobacillus Rhamnosus GG 15 Billion CFU CAP.SPRINK PO SCH (09:28)
[2019-10-05] MEDS: Multivitamin Tab PO SCH (09:29)
[2019-10-05] MEDS: Atorvastatin Calcium 10 MG TAB PO SCH (09:30)
--- NOTE | 2019-10-05 14:24 | Internal Medicine Prog Note ---
Internal Medicine Subjective - Subjective Patient seen and examined:: with staff, chart reviewed Patient is:: awake, verbal, interactive Per staff patient has:: no adverse event, tolerating meds, refusing care Internal Medicine Objective - Physical Exam Vitals and I&O: Vital Signs Temp 97.6 F 10/05/19 14:14 Pulse 118 10/05/19 14:14 Resp 22 10/05/19 14:14 BP 145/67 10/05/19 14:14 Pulse Ox 98 10/05/19 14:14 Intake & Output 10/04/19 10/05/19 10/05/19 18:59 06:59 18:59 Intake Total 1200 360 Balance 1200 360 Intake: Oral 1200 360 Other: # Voids 1 # Bowel Movements 1 0 Active Medications: Current Medications Acetaminophen (Tylenol) 650 mg PO Q4HR PRN PRN Reason: Mild Pain (Scale 1-3) Stop: 11/16/19 22:13 Acetaminophen (Tylenol) 650 mg PO Q4HR PRN PRN Reason: TEMP ABOVE 100 Stop: 11/18/19 16:06 Al Hydrox/Mg Hydrox/Simethicone (Maalox) 30 ml PO Q4HR PRN PRN Reason: GI DISTRESS Stop: 11/16/19 22:13 Albuterol/Ipratropium (Duoneb Neb) 3 ml HHN Q2HRT PRN PRN Reason: Wheezing Stop: 11/16/19 22:18 Last Admin: 10/03/19 22:21 Dose: 3 ml Albuterol/Ipratropium (Duoneb Neb) 3 ml HHN Q6HRT [facility] Stop: 11/17/19 00:59 Last Admin: 10/05/19 13:21 Dose: Not Given Aspirin (Ecotrin) 81 mg PO DAILY [facility] Stop: 11/17/19 08:59 Last Admin: 10/05/19 09:27 Dose: Not Given Atorvastatin Calcium (Lipitor) 10 mg PO DAILY [facility]; Protocol Stop: 11/17/19 08:59 Last Admin: 10/05/19 09:30 Dose: Not Given Calcium/Vitamin D (Oscal W/Vitamin D) 1 tab PO BID [facility] Stop: 11/17/19 08:59 Last Admin: 10/05/19 09:27 Dose: Not Given Escitalopram Oxalate (Lexapro) 10 mg PO DAILY [facility]; Protocol Stop: 11/17/19 08:59 Last Admin: 10/05/19 09:28 Dose: Not Given Guaifenesin/Dextromethorphan (Robitussin Dm) 5 ml PO Q6HR PRN PRN Reason: Cough Stop: 11/16/19 22:18 Last Admin: 09/23/19 04:33 Dose: 5 ml Lactobacillus Rhamnosus (Culturelle 15b) 1 each PO DAILY [facility] Stop: 11/17/19 08:59 Last Admin: 10/05/19 09:28 Dose: Not Given Lorazepam (Ativan) 0.5 mg PO Q4HR PRN; Protocol PRN Reason: Anxiety Stop: 11/24/19 10:35 Last Admin: 10/04/19 22:48 Dose: 0.5 mg Magnesium Hydroxide (Milk Of Magnesia) 30 ml PO HS PRN PRN Reason: Constipation Multivitamins/Vitamin C (Theragran) 1 tab PO DAILY [facility] Stop: 11/17/19 08:59 Last Admin: 10/05/19 09:29 Dose: Not Given Pantoprazole Sodium (Protonix) 40 mg PO DAILY [facility] Stop: 11/17/19 08:59 Last Admin: 10/05/19 09:27 Dose: Not Given Quetiapine Fumarate (Seroquel) 300 mg PO HS [facility]; Protocol Stop: 11/16/19 22:59 Last Admin: 10/04/19 23:00 Dose: 300 mg Quetiapine Fumarate (Seroquel) 50 mg PO BID [facility]; Protocol Stop: 12/03/19 08:59 Last Admin: 10/05/19 09:33 Dose: Not Given Trazodone HCl (Desyrel) 100 mg PO HS [facility]; Protocol Stop: 11/16/19 22:59 Last Admin: 10/04/19 23:00 Dose: 100 mg General: alert HEENT: NC/AT, PERRLA Neck: Supple, No thyromegaly Lungs: CTAB Cardiovascular: RRR, Normal S1, Normal S2 Abdomen: soft, non-tender, globular Extremities: excoriation Neurological: no change - Procedures Procedures: Procedures Procedure Code Date EGD BIOPSY SINGLE/MULTIPLE 20163 05/06/17 EXCISION OF DUODENUM, ENDO, DIAGN [id number] 05/06/17 EXCISION OF STOMACH, ENDO, DIAGN [id number] 05/06/17 Internal Medicine Assmt/Plan - Assessment Assessment: hyperlipidemia djd osteoporosis cri anemia gerd - Plan Plan: cont on statin continue on asa fall precaution nsaids prn dw rn Nutritional Asmnt/Malnutr-PDOC - Dietary Evaluation Malnutrition Findings (Please click <Entered> for more info): Nutritional Asmnt/Malnutrition Start: 09/24/19 12: 38 Text: Status: Complete Freq: Protocol: Document 09/24/19 12:38 NAYELI (Rec: 09/24/19 12:42 NAYELI JUAN CARLOS-[id number]) Nutritional Asmnt/Malnutrition Patient General Information Nutritional Screening Moderate Risk Diagnosis Psychosis Pertinent Medical Hx/Surgical Hx HTN, DJD, Psychosis, RT knee Replacement, Asthma/COPD, Ovarian cyst removal Subjective Information Pt is a 63-year-old female admitted on 09/17 d/t increased agitation, aggressive behavior and noted inability to walk. Pt was d/c from our facility on 09/17 and returned d/t above mentioned reasons. Pt is eating an estimated 100% of meals Per Meal/Nutrition Activity Record . Dietary is currently providing an estimated 2300 kcals and 120 gm Pro to meet 100+% kcal and 100+% Pro needs . Visited pt after lunch once finished with lunch. She stated the food was good and she was full. She asked for a nurse as she felt SOB. I grabbed the WAREHOUSE SHIPPING SUPERVISOR to relay the message as the nurse was on break. Anthropometrics HT: 57 WT: 216 LB (98.18 kg) ABW: 155 LB (70.57 kg) BMI: 33.81 (Obese) GI/ Skin Integrity GI: WNL, Soft, Round, Non- tender BM: 09/24 x1 I/O: 1240/Not Noted Skin: WNL, Intact Oniel: 20 Diet Order: Regular Estimated Energy Needs: (Obese , ABW) 2927-5589 kcals (20-25 kcals/ kg) 60-70g Pro (0.8-1.0 g/kg) 2791-2435 ml (25-30 ml/kg) Current Diet Order/ Nutrition Support Regular Pertinent Medications Maalox (PRN), Albuterol (PRN), Lipitor, Oscal with vitamin D , MOM (PRN), Theragran, Protonix Pertinent Labs No pertinent labs/ labs charted Nutritional Hx/Data Height 1.7 m Height (Calculated Centimeters) 170.2 Current Weight (lbs) 97.976 kg Weight (Calculated Kilograms) 98.0 Weight (Calculated Grams) 39118.0 [place] Body Weight 135 LB (61.36 kg) % [place] Body Weight 160 Body Mass Index (BMI) 33.8 Weight Status Obese GI Symptoms GI Symptoms None Last BM 09/24 x1 Skin Integrity/Comment: Skin: WNL, Intact Oniel: 20 Current %PO Good (75-100%) Estimated Nutritional Goals BEE in Kcals: Adj wt of IBW Calories/Kcals/Kg 20-25 Kcals Calculated 3302-8091 Protein: Adj wt of IBW Protein g/k.8-1.0 Protein Calculated 60-70 Fluid: ml 8987-0690 ml (25-30 ml/kg) Nutritional Problem No current Nutrition Prob Problem No nutrition diagnosis at this time. Etiology N/A Signs/Symptoms: N/A Malnutrition Related to Morbid Obesity Malnutrition related to morbid obesity No Intervention/Recommendation Comments Continue Regular diet as tolerated. Expected Outcomes/Goals Expected Outcomes/Goals 1. PO intake to continue to meet >75% of estimated nutritional needs. 2. Monitor PO intake, wt, nutrition related labs, and skin integrity. 3. F/U as low risk in 7-10 days, 10/01-10/04
[2019-10-05] MEDS: Albuterol/Ipratropium Neb 3 ML AERS HHN PRN (21:24)
[2019-10-06] MEDS: Albuterol/Ipratropium Neb 3 ML AERS HHN SCH ×6 (01:15→19:34)
[2019-10-06] MEDS: Lactobacillus Rhamnosus GG 15 Billion CFU CAP.SPRINK PO SCH (09:38)
[2019-10-06] MEDS: Multivitamin Tab PO SCH (09:38)
[2019-10-06] MEDS: Calcium Carb/Vit D 500 mg/200 U Tab PO SCH ×2 (09:38→17:57)
[2019-10-06] MEDS: Pantoprazole 40 mg EC Tab PO SCH (09:39)
[2019-10-06] MEDS: Atorvastatin Calcium 10 MG TAB PO SCH (09:39)
--- NOTE | 2019-10-06 14:45 | Internal Medicine Prog Note ---
Internal Medicine Subjective - Subjective Patient seen and examined:: with staff, chart reviewed Patient is:: awake, verbal, interactive Per staff patient has:: no adverse event, tolerating meds, refusing care Internal Medicine Objective - Physical Exam Vitals and I&O: Vital Signs Temp 97.5 F 10/06/19 14:00 Pulse 110 10/06/19 14:00 Resp 20 10/06/19 14:00 BP 132/81 10/06/19 14:00 Pulse Ox 95 10/06/19 14:00 Intake & Output 10/05/19 10/06/19 10/06/19 18:59 06:59 18:59 Intake Total 360 Balance 360 Intake: Oral 360 Other: # Voids 3 1 # Bowel Movements 1 Stool Characteristics Formed Brown Active Medications: Current Medications Acetaminophen (Tylenol) 650 mg PO Q4HR PRN PRN Reason: Mild Pain (Scale 1-3) Stop: 11/16/19 22:13 Acetaminophen (Tylenol) 650 mg PO Q4HR PRN PRN Reason: TEMP ABOVE 100 Stop: 11/18/19 16:06 Al Hydrox/Mg Hydrox/Simethicone (Maalox) 30 ml PO Q4HR PRN PRN Reason: GI DISTRESS Stop: 11/16/19 22:13 Albuterol/Ipratropium (Duoneb Neb) 3 ml HHN Q2HRT PRN PRN Reason: Wheezing Stop: 11/16/19 22:18 Last Admin: 10/05/19 21:24 Dose: 3 ml Albuterol/Ipratropium (Duoneb Neb) 3 ml HHN Q6HRT [facility] Stop: 11/17/19 00:59 Last Admin: 10/06/19 14:00 Dose: 3 ml Aspirin (Ecotrin) 81 mg PO DAILY [facility] Stop: 11/17/19 08:59 Last Admin: 10/06/19 09:38 Dose: Not Given Atorvastatin Calcium (Lipitor) 10 mg PO DAILY [facility]; Protocol Stop: 11/17/19 08:59 Last Admin: 10/06/19 09:39 Dose: Not Given Calcium/Vitamin D (Oscal W/Vitamin D) 1 tab PO BID [facility] Stop: 11/17/19 08:59 Last Admin: 10/06/19 09:38 Dose: Not Given Escitalopram Oxalate (Lexapro) 10 mg PO DAILY [facility]; Protocol Stop: 11/17/19 08:59 Last Admin: 10/06/19 09:38 Dose: Not Given Guaifenesin/Dextromethorphan (Robitussin Dm) 5 ml PO Q6HR PRN PRN Reason: Cough Stop: 11/16/19 22:18 Last Admin: 09/23/19 04:33 Dose: 5 ml Lactobacillus Rhamnosus (Culturelle 15b) 1 each PO DAILY [facility] Stop: 11/17/19 08:59 Last Admin: 10/06/19 09:38 Dose: Not Given Lorazepam (Ativan) 0.5 mg PO Q4HR PRN; Protocol PRN Reason: Anxiety Stop: 11/24/19 10:35 Last Admin: 10/06/19 03:50 Dose: 0.5 mg Magnesium Hydroxide (Milk Of Magnesia) 30 ml PO HS PRN PRN Reason: Constipation Multivitamins/Vitamin C (Theragran) 1 tab PO DAILY [facility] Stop: 11/17/19 08:59 Last Admin: 10/06/19 09:38 Dose: Not Given Pantoprazole Sodium (Protonix) 40 mg PO DAILY [facility] Stop: 11/17/19 08:59 Last Admin: 10/06/19 09:39 Dose: Not Given Quetiapine Fumarate (Seroquel) 300 mg PO HS [facility]; Protocol Stop: 11/16/19 22:59 Last Admin: 10/05/19 21:23 Dose: 300 mg Quetiapine Fumarate (Seroquel) 50 mg PO BID [facility]; Protocol Stop: 12/03/19 08:59 Last Admin: 10/06/19 09:39 Dose: Not Given Trazodone HCl (Desyrel) 100 mg PO HS [facility]; Protocol Stop: 11/16/19 22:59 Last Admin: 10/05/19 21:23 Dose: 100 mg General: alert HEENT: NC/AT, PERRLA Neck: Supple, No thyromegaly Lungs: CTAB Cardiovascular: RRR, Normal S1, Normal S2 Abdomen: soft, non-tender, globular Extremities: excoriation Neurological: no change - Procedures Procedures: Procedures Procedure Code Date EGD BIOPSY SINGLE/MULTIPLE 10571 05/06/17 EXCISION OF DUODENUM, ENDO, DIAGN [id number] 05/06/17 EXCISION OF STOMACH, ENDO, DIAGN [id number] 05/06/17 Internal Medicine Assmt/Plan - Assessment Assessment: hyperlipidemia djd osteoporosis cri anemia gerd - Plan Plan: cont on statin continue on asa fall precaution nsaids prn dw rn Nutritional Asmnt/Malnutr-PDOC - Dietary Evaluation Malnutrition Findings (Please click <Entered> for more info): Nutritional Asmnt/Malnutrition Start: 09/24/19 12: 38 Text: Status: Complete Freq: Protocol: Document 09/24/19 12:38 NAYELI (Rec: 09/24/19 12:42 NAYELI JUAN CARLOS-[id number]) Nutritional Asmnt/Malnutrition Patient General Information Nutritional Screening Moderate Risk Diagnosis Psychosis Pertinent Medical Hx/Surgical Hx HTN, DJD, Psychosis, RT knee Replacement, Asthma/COPD, Ovarian cyst removal Subjective Information Pt is a 63-year-old female admitted on 09/17 d/t increased agitation, aggressive behavior and noted inability to walk. Pt was d/c from our facility on 09/17 and returned d/t above mentioned reasons. Pt is eating an estimated 100% of meals Per Meal/Nutrition Activity Record . Dietary is currently providing an estimated 2300 kcals and 120 gm Pro to meet 100+% kcal and 100+% Pro needs . Visited pt after lunch once finished with lunch. She stated the food was good and she was full. She asked for a nurse as she felt SOB. I grabbed the GRAD[employer] 1 [employer]RU 5 TEACHER to relay the message as the nurse was on break. Anthropometrics HT: 57 WT: 216 LB (98.18 kg) ABW: 155 LB (70.57 kg) BMI: 33.81 (Obese) GI/ Skin Integrity GI: WNL, Soft, Round, Non- tender BM: 09/24 x1 I/O: 1240/Not Noted Skin: WNL, Intact Oniel: 20 Diet Order: Regular Estimated Energy Needs: (Obese , ABW) 6371-7253 kcals (20-25 kcals/ kg) 60-70g Pro (0.8-1.0 g/kg) 4359-6434 ml (25-30 ml/kg) Current Diet Order/ Nutrition Support Regular Pertinent Medications Maalox (PRN), Albuterol (PRN), Lipitor, Oscal with vitamin D , MOM (PRN), Theragran, Protonix Pertinent Labs No pertinent labs/ labs charted Nutritional Hx/Data Height 1.7 m Height (Calculated Centimeters) 170.2 Current Weight (lbs) 97.976 kg Weight (Calculated Kilograms) 98.0 Weight (Calculated Grams) 00826.0 [place] Body Weight 135 LB (61.36 kg) % [place] Body Weight 160 Body Mass Index (BMI) 33.8 Weight Status Obese GI Symptoms GI Symptoms None Last BM 09/24 x1 Skin Integrity/Comment: Skin: WNL, Intact Oniel: 20 Current %PO Good (75-100%) Estimated Nutritional Goals BEE in Kcals: Adj wt of IBW Calories/Kcals/Kg 20-25 Kcals Calculated 1690-2587 Protein: Adj wt of IBW Protein g/k.8-1.0 Protein Calculated 60-70 Fluid: ml 6896-8029 ml (25-30 ml/kg) Nutritional Problem No current Nutrition Prob Problem No nutrition diagnosis at this time. Etiology N/A Signs/Symptoms: N/A Malnutrition Related to Morbid Obesity Malnutrition related to morbid obesity No Intervention/Recommendation Comments Continue Regular diet as tolerated. Expected Outcomes/Goals Expected Outcomes/Goals 1. PO intake to continue to meet >75% of estimated nutritional needs. 2. Monitor PO intake, wt, nutrition related labs, and skin integrity. 3. F/U as low risk in 7-10 days, 10/01-10/04
[2019-10-06] MEDS: Albuterol/Ipratropium Neb 3 ML AERS HHN PRN (19:55)
--- NOTE | 2019-10-06 20:34 | Progress Notes ---
DATE: 09/29/2019 SUBJECTIVE: Chart was reviewed and discussed the patient's condition with the staff and reviewed records and labs. The patient is still anxious and is still in a depressed mood. The patient also is still complaining of breathing problems and last night, the patient had 3 breathing treatments. The patient also is still in a depressed mood and still has difficulty making up her mind about placement issue. Otherwise, the patient is still compliant with taking her medications with no side effects of medications. ASSESSMENT: The patient is still depressed and needs placement. TREATMENT PLAN: Continue to monitor behavior and condition. Also, continue to work on her ineffective coping and placement issue. JOB# [id number]
--- NOTE | 2019-10-06 20:34 | Progress Notes ---
DATE: 10/02/2019 Case was discussed with staff of the patient, reviewed records. The patient continues to be depressed, guarded. Continues to be unable to make safe plan for self-care, talking about going to a place in does not know where is that placed The patient is compliant with the medication with no side effects. She just got breathing treatment when i talked to her. Continues to be depressed. Awaiting placement. No side effects with the medication, no sedation, no nausea, no extrapyramidal symptoms. We will continue outpatient group therapy, milieu therapy, adjust medication as needed. JOB# [id number] JUMANA
--- NOTE | 2019-10-06 20:34 | Progress Notes ---
DATE: SUBJECTIVE: Chart was reviewed and the patient interviewed. Also discussed the patient's condition with the staff and reviewed records and labs. The patient had strange behaviors yesterday and the patient tried to elope and to exit the door multiple times and staff had to stop her. She also still seems to be suspicious and paranoid about her surroundings. The patient wants to leave, but unable to provide any safe plan for self-care. She seems to be suspicious and paranoid and it seemed that her long hospital stay has been making her more paranoid, but at the same time, the patient is uncooperative with the staff and she has not been able to provide any safe plan for self-care and she wants to go to [place] while there is no address or any people or phone number that she can provide with to her placement. ASSESSMENT: The patient is still confused and depressed. TREATMENT PLAN: The patient is still confused and is still considered to be gravely disabled and depressed. We will increase Seroquel to 50 mg twice a day and 300 mg at bedtime and we will continue to follow up. [facility]# [id number]
--- NOTE | 2019-10-06 20:34 | Progress Notes ---
DATE: 09/30/2019 SUBJECTIVE: Chart was reviewed and the patient interviewed. Also discussed the patient's condition with the staff and reviewed records and labs. The patient is still depressed and withdrawn. The patient also questionable that she has some hallucinations and told her roommate who is alert and oriented that she saw snakes in the room. The patient also was afraid to stay in her room most of the time and she was wandering outside the room. The patient also seems to be nervous and agitated this morning. Otherwise, the patient is compliant with taking her medications with no side effects of medications. Also waiting for and working on discharge plans and placement issue. ASSESSMENT: The patient is still depressed and psychotic and is still waiting for discharge plans. TREATMENT PLAN: We will increase Seroquel to 25 mg twice a day and 300 mg at bedtime. Also, we will continue trazodone and we will continue to follow up closely. [facility]# [id number]
--- NOTE | 2019-10-06 20:34 | Progress Notes ---
DATE: 10/01/2019 PSYCHIATRIC PROGRESS NOTE SUBJECTIVE: Chart reviewed and the patient interviewed. Also discussed the patient's condition with the staff and reviewed records and labs. The patient is still in a depressed mood and withdrawn. The patient also is interacting minimally with peers and with others. She also denies any intention to harm herself or others. The patient also is compliant with taking her medications and the patient denies any side effects of medications. The staff reported that the patient's roommate was reporting seeing snakes in her room, but the patient denies that. ASSESSMENT: The patient is still depressed and waiting for placement. TREATMENT PLAN: We will continue to monitor her behavior and her condition closely. Also, we will continue working on her irritability and her placement as well as adjusting medications and we will continue to follow up. [facility]# [id number]
--- NOTE | 2019-10-06 20:34 | Progress Notes ---
DATE: SUBJECTIVE: Chart was reviewed and the patient interviewed. Also discussed the patient's condition with the staff and reviewed records and labs. The patient is still anxious and is still in a depressed mood. The patient also is still suspicious and is still paranoid. She also still wants to be left alone and interacts minimally with others. The patient also is still not very helpful in regard to placement issue and discharge plans, but at the same time, I have no information from social science professor about where the patient can go or placement issue. At the same time, we will continue current medications and we will continue to follow up. JOB# [id number]
--- NOTE | 2019-10-06 20:35 | Progress Notes ---
DATE: SUBJECTIVE: The patient was seen and evaluated. The patient's chart reviewed. Today on katm-pt-ahgs evaluation, the patient is easily irritable, believes that the people are rolling their eyes on her, continues to be suspicious. MENTAL STATUS EXAMINATION: Suspicious, believing that people are rolling their eyes about her wonders pacing. ASSESSMENT AND PLAN: The patient with a history of schizoaffective disorder. We will continue with primary psychiatrist's treatment plan and goal, which includes Seroquel 50 b.i.d., 300 mg at nighttime and Lexapro 10 mg a day. [facility]# [id number]
--- NOTE | 2019-10-06 20:35 | Progress Notes ---
DATE: SUBJECTIVE: The patient was seen and evaluated. The patient's chart reviewed. Today on ildd-oc-dnrb evaluation, the patient continues to perseverate about leaving, people are waiting, they are coming, they are going to pick her up. When I attempted to discuss with her and validate her emotions about safe disposition, becomes very irritable and walks away. ASSESSMENT AND PLAN: The patient is a 63-year-old female with history of schizoaffective disorder. We will continue with primary psychiatrist's treatment plan and goals and continue working closely with her therapeutic case manager for safe disposition once further psychiatrically stable. JOB# [id number]
[2019-10-07] MEDS: Albuterol/Ipratropium Neb 3 ML AERS HHN SCH ×4 (01:33→18:08)
[2019-10-07] MEDS: Albuterol/Ipratropium Neb 3 ML AERS HHN PRN ×2 (07:56→20:46)
[2019-10-07] MEDS: Atorvastatin Calcium 10 MG TAB PO SCH (08:31)
[2019-10-07] MEDS: Multivitamin Tab PO SCH (08:31)
[2019-10-07] MEDS: Lactobacillus Rhamnosus GG 15 Billion CFU CAP.SPRINK PO SCH (08:31)
[2019-10-07] MEDS: Calcium Carb/Vit D 500 mg/200 U Tab PO SCH ×2 (08:31→16:21)
[2019-10-07] MEDS: Pantoprazole 40 mg EC Tab PO SCH (08:31)
--- NOTE | 2019-10-07 12:59 | Internal Medicine Prog Note ---
Internal Medicine Subjective - Subjective Patient seen and examined:: with staff, chart reviewed Patient is:: awake, verbal, interactive Per staff patient has:: no adverse event, tolerating meds, refusing care Internal Medicine Objective - Physical Exam Vitals and I&O: Vital Signs Temp 97.9 F 10/07/19 06:42 Pulse 107 10/07/19 06:42 Resp 18 10/07/19 06:42 BP 121/66 10/07/19 06:42 Pulse Ox 94 10/07/19 06:42 Intake & Output 10/06/19 10/07/19 10/07/19 18:59 06:59 18:59 Intake Total 480 Balance 480 Intake: Oral 480 Other: # Voids 2 3 # Bowel Movements 0 0 Stool Characteristics Formed Brown Active Medications: Current Medications Acetaminophen (Tylenol) 650 mg PO Q4HR PRN PRN Reason: Mild Pain (Scale 1-3) Stop: 11/16/19 22:13 Acetaminophen (Tylenol) 650 mg PO Q4HR PRN PRN Reason: TEMP ABOVE 100 Stop: 11/18/19 16:06 Al Hydrox/Mg Hydrox/Simethicone (Maalox) 30 ml PO Q4HR PRN PRN Reason: GI DISTRESS Stop: 11/16/19 22:13 Albuterol/Ipratropium (Duoneb Neb) 3 ml HHN Q2HRT PRN PRN Reason: Wheezing Stop: 11/16/19 22:18 Last Admin: 10/07/19 07:56 Dose: 3 ml Albuterol/Ipratropium (Duoneb Neb) 3 ml HHN Q6HRT [facility] Stop: 11/17/19 00:59 Last Admin: 10/07/19 06:33 Dose: 3 ml Aspirin (Ecotrin) 81 mg PO DAILY [facility] Stop: 11/17/19 08:59 Last Admin: 10/07/19 08:31 Dose: 81 mg Atorvastatin Calcium (Lipitor) 10 mg PO DAILY [facility]; Protocol Stop: 11/17/19 08:59 Last Admin: 10/07/19 08:31 Dose: 10 mg Calcium/Vitamin D (Oscal W/Vitamin D) 1 tab PO BID [facility] Stop: 11/17/19 08:59 Last Admin: 10/07/19 08:31 Dose: 1 tab Escitalopram Oxalate (Lexapro) 10 mg PO DAILY [facility]; Protocol Stop: 11/17/19 08:59 Last Admin: 10/07/19 08:30 Dose: 10 mg Guaifenesin/Dextromethorphan (Robitussin Dm) 5 ml PO Q6HR PRN PRN Reason: Cough Stop: 11/16/19 22:18 Last Admin: 09/23/19 04:33 Dose: 5 ml Lactobacillus Rhamnosus (Culturelle 15b) 1 each PO DAILY [facility] Stop: 11/17/19 08:59 Last Admin: 10/07/19 08:31 Dose: 1 each Lorazepam (Ativan) 0.5 mg PO Q4HR PRN; Protocol PRN Reason: Anxiety Stop: 11/24/19 10:35 Last Admin: 10/06/19 21:28 Dose: 0.5 mg Magnesium Hydroxide (Milk Of Magnesia) 30 ml PO HS PRN PRN Reason: Constipation Multivitamins/Vitamin C (Theragran) 1 tab PO DAILY [facility] Stop: 11/17/19 08:59 Last Admin: 10/07/19 08:31 Dose: 1 tab Pantoprazole Sodium (Protonix) 40 mg PO DAILY [facility] Stop: 11/17/19 08:59 Last Admin: 10/07/19 08:31 Dose: 40 mg Quetiapine Fumarate (Seroquel) 300 mg PO HS [facility]; Protocol Stop: 11/16/19 22:59 Last Admin: 10/06/19 21:27 Dose: 300 mg Quetiapine Fumarate (Seroquel) 50 mg PO BID [facility]; Protocol Stop: 12/03/19 08:59 Last Admin: 10/07/19 08:31 Dose: 50 mg Trazodone HCl (Desyrel) 100 mg PO HS [facility]; Protocol Stop: 11/16/19 22:59 Last Admin: 10/06/19 21:28 Dose: 100 mg General: alert HEENT: NC/AT, PERRLA Neck: Supple, No thyromegaly Lungs: CTAB Cardiovascular: RRR, Normal S1, Normal S2 Abdomen: soft, non-tender, globular Extremities: excoriation Neurological: no change - Procedures Procedures: Procedures Procedure Code Date EGD BIOPSY SINGLE/MULTIPLE 68142 05/06/17 EXCISION OF DUODENUM, ENDO, DIAGN [id number] 05/06/17 EXCISION OF STOMACH, ENDO, DIAGN [id number] 05/06/17 Internal Medicine Assmt/Plan - Assessment Assessment: hyperlipidemia djd osteoporosis cri anemia gerd - Plan Plan: cont on statin continue on asa fall precaution nsaids prn dw rn Nutritional Asmnt/Malnutr-PDOC - Dietary Evaluation Malnutrition Findings (Please click <Entered> for more info): Nutritional Asmnt/Malnutrition Start: 09/24/19 12: 38 Text: Status: Complete Freq: Protocol: Document 09/24/19 12:38 NAYELI (Rec: 09/24/19 12:42 NAYELI JUAN CARLOS-[email or web address]) Nutritional Asmnt/Malnutrition Patient General Information Nutritional Screening Moderate Risk Diagnosis Psychosis Pertinent Medical Hx/Surgical Hx HTN, DJD, Psychosis, RT knee Replacement, Asthma/COPD, Ovarian cyst removal Subjective Information Pt is a 63-year-old female admitted on 09/17 d/t increased agitation, aggressive behavior and noted inability to walk. Pt was d/c from our facility on 09/17 and returned d/t above mentioned reasons. Pt is eating an estimated 100% of meals Per Meal/Nutrition Activity Record . Dietary is currently providing an estimated 2300 kcals and 120 gm Pro to meet 100+% kcal and 100+% Pro needs . Visited pt after lunch once finished with lunch. She stated the food was good and she was full. She asked for a nurse as she felt SOB. I grabbed the HEEL EDGE INKER MACHINE to relay the message as the nurse was on break. Anthropometrics HT: 57 WT: 216 LB (98.18 kg) ABW: 155 LB (70.57 kg) BMI: 33.81 (Obese) GI/ Skin Integrity GI: WNL, Soft, Round, Non- tender BM: 09/24 x1 I/O: 1240/Not Noted Skin: WNL, Intact Oniel: 20 Diet Order: Regular Estimated Energy Needs: (Obese , ABW) 3327-2373 kcals (20-25 kcals/ kg) 60-70g Pro (0.8-1.0 g/kg) 5111-2603 ml (25-30 ml/kg) Current Diet Order/ Nutrition Support Regular Pertinent Medications Maalox (PRN), Albuterol (PRN), Lipitor, Oscal with vitamin D , MOM (PRN), Theragran, Protonix Pertinent Labs No pertinent labs/ labs charted Nutritional Hx/Data Height 1.7 m Height (Calculated Centimeters) 170.2 Current Weight (lbs) 97.976 kg Weight (Calculated Kilograms) 98.0 Weight (Calculated Grams) 70883.0 [place] Body Weight 135 LB (61.36 kg) % [place] Body Weight 160 Body Mass Index (BMI) 33.8 Weight Status Obese GI Symptoms GI Symptoms None Last BM 09/24 x1 Skin Integrity/Comment: Skin: WNL, Intact Oniel: 20 Current %PO Good (75-100%) Estimated Nutritional Goals BEE in Kcals: Adj wt of IBW Calories/Kcals/Kg 20-25 Kcals Calculated 0242-9573 Protein: Adj wt of IBW Protein g/k.8-1.0 Protein Calculated 60-70 Fluid: ml 5582-7225 ml (25-30 ml/kg) Nutritional Problem No current Nutrition Prob Problem No nutrition diagnosis at this time. Etiology N/A Signs/Symptoms: N/A Malnutrition Related to Morbid Obesity Malnutrition related to morbid obesity No Intervention/Recommendation Comments Continue Regular diet as tolerated. Expected Outcomes/Goals Expected Outcomes/Goals 1. PO intake to continue to meet >75% of estimated nutritional needs. 2. Monitor PO intake, wt, nutrition related labs, and skin integrity. 3. F/U as low risk in 7-10 days, 10/01-10/04
--- NOTE | 2019-10-07 21:34 | Progress Notes ---
DATE: 10/07/2019 SUBJECTIVE: The patient stating that she wants to leave, demanding to leave. Staff noting that there is some concern that she may be malingering, feigning her symptoms, in fact does not want to leave, given that last time we tried to discharge her, she had a huge outburst, tantrum like, refused to leave, refused to walk, refused to get out of the gurney. She had to be sent back. The patient is stating that I am "a funny doctor," believing "you are not real." However, nursing staff noting that her symptoms worsened recently when she found out she was going to be leaving soon. PLAN: We will continue to monitor ongoing symptoms, safety concerns. JOB# [id number]
[2019-10-08] MEDS: Albuterol/Ipratropium Neb 3 ML AERS HHN SCH ×4 (01:14→18:57)
[2019-10-08] MEDS: Calcium Carb/Vit D 500 mg/200 U Tab PO SCH ×2 (08:26→16:08)
[2019-10-08] MEDS: Pantoprazole 40 mg EC Tab PO SCH (08:26)
[2019-10-08] MEDS: Multivitamin Tab PO SCH (08:26)
[2019-10-08] MEDS: Atorvastatin Calcium 10 MG TAB PO SCH (08:26)
[2019-10-08] MEDS: Lactobacillus Rhamnosus GG 15 Billion CFU CAP.SPRINK PO SCH (08:26)
--- NOTE | 2019-10-08 15:52 | Internal Medicine Prog Note ---
Internal Medicine Subjective - Subjective Patient seen and examined:: with staff, chart reviewed Patient is:: awake, verbal, interactive Per staff patient has:: no adverse event, tolerating meds, refusing care Internal Medicine Objective - Physical Exam Vitals and I&O: Vital Signs Temp 97.6 F 10/08/19 15:20 Pulse 92 10/08/19 15:20 Resp 20 10/08/19 15:20 BP 107/61 10/08/19 15:20 Pulse Ox 94 10/08/19 15:20 Intake & Output 10/07/19 10/08/19 10/08/19 18:59 06:59 18:59 Intake Total 1200 240 Balance 1200 240 Intake: Oral 1200 240 Other: # Voids 4 1 # Bowel Movements 1 Stool Characteristics Formed Brown Active Medications: Current Medications Acetaminophen (Tylenol) 650 mg PO Q4HR PRN PRN Reason: Mild Pain (Scale 1-3) Stop: 11/16/19 22:13 Acetaminophen (Tylenol) 650 mg PO Q4HR PRN PRN Reason: TEMP ABOVE 100 Stop: 11/18/19 16:06 Al Hydrox/Mg Hydrox/Simethicone (Maalox) 30 ml PO Q4HR PRN PRN Reason: GI DISTRESS Stop: 11/16/19 22:13 Albuterol/Ipratropium (Duoneb Neb) 3 ml HHN Q2HRT PRN PRN Reason: Wheezing Stop: 11/16/19 22:18 Last Admin: 10/07/19 20:46 Dose: 3 ml Albuterol/Ipratropium (Duoneb Neb) 3 ml HHN Q6HRT [facility] Stop: 11/17/19 00:59 Last Admin: 10/08/19 13:33 Dose: 3 ml Aspirin (Ecotrin) 81 mg PO DAILY [facility] Stop: 11/17/19 08:59 Last Admin: 10/08/19 08:26 Dose: 81 mg Atorvastatin Calcium (Lipitor) 10 mg PO DAILY [facility]; Protocol Stop: 11/17/19 08:59 Last Admin: 10/08/19 08:26 Dose: 10 mg Calcium/Vitamin D (Oscal W/Vitamin D) 1 tab PO BID [facility] Stop: 11/17/19 08:59 Last Admin: 10/08/19 08:26 Dose: 1 tab Escitalopram Oxalate (Lexapro) 10 mg PO DAILY [facility]; Protocol Stop: 11/17/19 08:59 Last Admin: 10/08/19 08:26 Dose: 10 mg Guaifenesin/Dextromethorphan (Robitussin Dm) 5 ml PO Q6HR PRN PRN Reason: Cough Stop: 11/16/19 22:18 Last Admin: 09/23/19 04:33 Dose: 5 ml Lactobacillus Rhamnosus (Culturelle 15b) 1 each PO DAILY [facility] Stop: 11/17/19 08:59 Last Admin: 10/08/19 08:26 Dose: 1 each Lorazepam (Ativan) 0.5 mg PO Q4HR PRN; Protocol PRN Reason: Anxiety Stop: 11/24/19 10:35 Last Admin: 10/07/19 20:46 Dose: 0.5 mg Magnesium Hydroxide (Milk Of Magnesia) 30 ml PO HS PRN PRN Reason: Constipation Multivitamins/Vitamin C (Theragran) 1 tab PO DAILY [facility] Stop: 11/17/19 08:59 Last Admin: 10/08/19 08:26 Dose: 1 tab Pantoprazole Sodium (Protonix) 40 mg PO DAILY [facility] Stop: 11/17/19 08:59 Last Admin: 10/08/19 08:26 Dose: 40 mg Quetiapine Fumarate (Seroquel) 50 mg PO BID [facility]; Protocol Stop: 12/03/19 08:59 Last Admin: 10/08/19 08:26 Dose: 50 mg Quetiapine Fumarate (Seroquel) 400 mg PO HS [facility]; Protocol Stop: 12/07/19 20:59 Trazodone HCl (Desyrel) 100 mg PO HS [facility]; Protocol Stop: 11/16/19 22:59 Last Admin: 10/07/19 20:45 Dose: 100 mg General: alert HEENT: NC/AT, PERRLA Neck: Supple, No thyromegaly Lungs: CTAB Cardiovascular: RRR, Normal S1, Normal S2 Abdomen: soft, non-tender, globular Extremities: excoriation Neurological: no change - Procedures Procedures: Procedures Procedure Code Date EGD BIOPSY SINGLE/MULTIPLE 97621 05/06/17 EXCISION OF DUODENUM, ENDO, DIAGN [id number] 05/06/17 EXCISION OF STOMACH, ENDO, DIAGN [id number] 05/06/17 Internal Medicine Assmt/Plan - Assessment Assessment: hyperlipidemia djd osteoporosis cri anemia gerd - Plan Plan: cont on statin continue on asa fall precaution nsaids prn dw rn Nutritional Asmnt/Malnutr-PDOC - Dietary Evaluation Malnutrition Findings (Please click <Entered> for more info): Nutritional Asmnt/Malnutrition Start: 09/24/19 12: 38 Text: Status: Complete Freq: Protocol: Document 09/24/19 12:38 NAYELI (Rec: 09/24/19 12:42 NICOLASCECILE JUAN CARLOS-[email or web address]) Nutritional Asmnt/Malnutrition Patient General Information Nutritional Screening Moderate Risk Diagnosis Psychosis Pertinent Medical Hx/Surgical Hx HTN, DJD, Psychosis, RT knee Replacement, Asthma/COPD, Ovarian cyst removal Subjective Information Pt is a 63-year-old female admitted on 09/17 d/t increased agitation, aggressive behavior and noted inability to walk. Pt was d/c from our facility on 09/17 and returned d/t above mentioned reasons. Pt is eating an estimated 100% of meals Per Meal/Nutrition Activity Record . Dietary is currently providing an estimated 2300 kcals and 120 gm Pro to meet 100+% kcal and 100+% Pro needs . Visited pt after lunch once finished with lunch. She stated the food was good and she was full. She asked for a nurse as she felt SOB. I grabbed the VICE PRINCIPAL to relay the message as the nurse was on break. Anthropometrics HT: 57 WT: 216 LB (98.18 kg) ABW: 155 LB (70.57 kg) BMI: 33.81 (Obese) GI/ Skin Integrity GI: WNL, Soft, Round, Non- tender BM: 09/24 x1 I/O: 1240/Not Noted Skin: WNL, Intact Oniel: 20 Diet Order: Regular Estimated Energy Needs: (Obese , ABW) 7676-7639 kcals (20-25 kcals/ kg) 60-70g Pro (0.8-1.0 g/kg) 3027-9238 ml (25-30 ml/kg) Current Diet Order/ Nutrition Support Regular Pertinent Medications Maalox (PRN), Albuterol (PRN), Lipitor, Oscal with vitamin D , MOM (PRN), Theragran, Protonix Pertinent Labs No pertinent labs/ labs charted Nutritional Hx/Data Height 1.7 m Height (Calculated Centimeters) 170.2 Current Weight (lbs) 97.976 kg Weight (Calculated Kilograms) 98.0 Weight (Calculated Grams) 68730.0 [place] Body Weight 135 LB (61.36 kg) % [place] Body Weight 160 Body Mass Index (BMI) 33.8 Weight Status Obese GI Symptoms GI Symptoms None Last BM 09/24 x1 Skin Integrity/Comment: Skin: WNL, Intact Oniel: 20 Current %PO Good (75-100%) Estimated Nutritional Goals BEE in Kcals: Adj wt of IBW Calories/Kcals/Kg 20-25 Kcals Calculated 1355-9915 Protein: Adj wt of IBW Protein g/k.8-1.0 Protein Calculated 60-70 Fluid: ml 9444-2962 ml (25-30 ml/kg) Nutritional Problem No current Nutrition Prob Problem No nutrition diagnosis at this time. Etiology N/A Signs/Symptoms: N/A Malnutrition Related to Morbid Obesity Malnutrition related to morbid obesity No Intervention/Recommendation Comments Continue Regular diet as tolerated. Expected Outcomes/Goals Expected Outcomes/Goals 1. PO intake to continue to meet >75% of estimated nutritional needs. 2. Monitor PO intake, wt, nutrition related labs, and skin integrity. 3. F/U as low risk in 7-10 days, 10/01-10/04
--- NOTE | 2019-10-08 22:13 | Progress Notes ---
DATE: 10/08/2019 SUBJECTIVE: The patient is calmer today versus yesterday. She is really unpredictable, labile, difficult to control her behaviors, easily agitated, demanding. We are working on her placements. The patient sometimes is yelling per staff. A couple days ago, she was apparently trying to sit on sofa of another patients. PLAN: We will continue to monitor. The patient is still bizarre, currently on dosing of Seroquel. I will be increasing her dosing of nighttime Seroquel to try to better control her behaviors. JOB# [id number]
[2019-10-09] MEDS: Albuterol/Ipratropium Neb 3 ML AERS HHN SCH ×5 (01:30→19:49)
--- NOTE | 2019-10-09 07:27 | Progress Notes ---
DATE: 10/09/2019 SUBJECTIVE: The patient is highly manipulative, denying that she was refusing to get out of the gurney previously. She is asking to leave, but I have a feeling that she is planning to sabotage her discharge as she did before. Actually strange at times, demanding, guarded, suspicious, preoccupied in her thoughts, difficult to understand what her secondary gain is given that she would like to leave the hospital, but at the same time, she does things to keep herself in the hospital. No evidence of any dangerousness. Recent dose increase of Seroquel. We will plan to discharge her tomorrow. My feeling is that she just does not want to leave the hospital, but there is no evidence of any dangerousness and placement and has been confirmed. JOB# [id number]
[2019-10-09] MEDS: Pantoprazole 40 mg EC Tab PO SCH (08:55)
[2019-10-09] MEDS: Atorvastatin Calcium 10 MG TAB PO SCH (08:55)
[2019-10-09] MEDS: Lactobacillus Rhamnosus GG 15 Billion CFU CAP.SPRINK PO SCH (09:06)
[2019-10-09] MEDS: Calcium Carb/Vit D 500 mg/200 U Tab PO SCH ×2 (09:07→16:51)
[2019-10-09] MEDS: Multivitamin Tab PO SCH (10:35)
--- NOTE | 2019-10-09 15:34 | Internal Medicine Prog Note ---
Internal Medicine Subjective - Subjective Patient seen and examined:: with staff, chart reviewed Patient is:: awake, verbal, interactive Per staff patient has:: no adverse event, tolerating meds, refusing care Internal Medicine Objective - Physical Exam Vitals and I&O: Vital Signs Temp 98.4 F 10/09/19 05:18 Pulse 82 10/09/19 05:18 Resp 19 10/09/19 08:00 BP 106/64 10/09/19 05:18 Pulse Ox 95 10/09/19 05:18 Intake & Output 10/08/19 10/09/19 10/09/19 18:59 06:59 18:59 Intake Total 1000 120 Balance 1000 120 Intake: Oral 1000 120 Other: # Voids 4 3 # Bowel Movements 1 0 Active Medications: Current Medications Acetaminophen (Tylenol) 650 mg PO Q4HR PRN PRN Reason: Mild Pain (Scale 1-3) Stop: 11/16/19 22:13 Acetaminophen (Tylenol) 650 mg PO Q4HR PRN PRN Reason: TEMP ABOVE 100 Stop: 11/18/19 16:06 Al Hydrox/Mg Hydrox/Simethicone (Maalox) 30 ml PO Q4HR PRN PRN Reason: GI DISTRESS Stop: 11/16/19 22:13 Albuterol/Ipratropium (Duoneb Neb) 3 ml HHN Q2HRT PRN PRN Reason: Wheezing Stop: 11/16/19 22:18 Last Admin: 10/07/19 20:46 Dose: 3 ml Albuterol/Ipratropium (Duoneb Neb) 3 ml HHN Q6HRT [facility] Stop: 11/17/19 00:59 Last Admin: 10/09/19 12:41 Dose: 3 ml Aspirin (Ecotrin) 81 mg PO DAILY [facility] Stop: 11/17/19 08:59 Last Admin: 10/09/19 09:07 Dose: 81 mg Atorvastatin Calcium (Lipitor) 10 mg PO DAILY [facility]; Protocol Stop: 11/17/19 08:59 Last Admin: 10/09/19 08:55 Dose: 10 mg Calcium/Vitamin D (Oscal W/Vitamin D) 1 tab PO BID [facility] Stop: 11/17/19 08:59 Last Admin: 10/09/19 09:07 Dose: 1 tab Escitalopram Oxalate (Lexapro) 10 mg PO DAILY [facility]; Protocol Stop: 11/17/19 08:59 Last Admin: 10/09/19 09:06 Dose: 10 mg Guaifenesin/Dextromethorphan (Robitussin Dm) 5 ml PO Q6HR PRN PRN Reason: Cough Stop: 11/16/19 22:18 Last Admin: 09/23/19 04:33 Dose: 5 ml Lactobacillus Rhamnosus (Culturelle 15b) 1 each PO DAILY [facility] Stop: 11/17/19 08:59 Last Admin: 10/09/19 09:06 Dose: 1 each Lorazepam (Ativan) 0.5 mg PO Q4HR PRN; Protocol PRN Reason: Anxiety Stop: 11/24/19 10:35 Last Admin: 10/07/19 20:46 Dose: 0.5 mg Magnesium Hydroxide (Milk Of Magnesia) 30 ml PO HS PRN PRN Reason: Constipation Multivitamins/Vitamin C (Theragran) 1 tab PO DAILY [facility] Stop: 11/17/19 08:59 Last Admin: 10/09/19 10:35 Dose: 1 tab Pantoprazole Sodium (Protonix) 40 mg PO DAILY [facility] Stop: 11/17/19 08:59 Last Admin: 10/09/19 08:55 Dose: 40 mg Quetiapine Fumarate (Seroquel) 50 mg PO BID [facility]; Protocol Stop: 12/03/19 08:59 Last Admin: 10/09/19 08:57 Dose: 50 mg Quetiapine Fumarate (Seroquel) 400 mg PO HS [facility]; Protocol Stop: 12/07/19 20:59 Last Admin: 10/08/19 20:31 Dose: 400 mg Trazodone HCl (Desyrel) 100 mg PO HS [facility]; Protocol Stop: 11/16/19 22:59 Last Admin: 10/08/19 20:31 Dose: 100 mg General: alert HEENT: NC/AT, PERRLA Neck: Supple, No thyromegaly Lungs: CTAB Cardiovascular: RRR, Normal S1, Normal S2 Abdomen: soft, non-tender, globular Extremities: excoriation Neurological: no change - Procedures Procedures: Procedures Procedure Code Date EGD BIOPSY SINGLE/MULTIPLE 09783 05/06/17 EXCISION OF DUODENUM, ENDO, DIAGN [id number] 05/06/17 EXCISION OF STOMACH, ENDO, DIAGN [id number] 05/06/17 Internal Medicine Assmt/Plan - Assessment Assessment: hyperlipidemia djd osteoporosis cri anemia gerd - Plan Plan: cont on statin continue on asa fall precaution nsaids prn dw rn Nutritional Asmnt/Malnutr-PDOC - Dietary Evaluation Malnutrition Findings (Please click <Entered> for more info): Nutritional Asmnt/Malnutrition Start: 09/24/19 12: 38 Text: Status: Complete Freq: Protocol: Document 09/24/19 12:38 NAYELI (Rec: 09/24/19 12:42 NAYELI JUAN CARLOS-[email or web address]) Nutritional Asmnt/Malnutrition Patient General Information Nutritional Screening Moderate Risk Diagnosis Psychosis Pertinent Medical Hx/Surgical Hx HTN, DJD, Psychosis, RT knee Replacement, Asthma/COPD, Ovarian cyst removal Subjective Information Pt is a 63-year-old female admitted on 09/17 d/t increased agitation, aggressive behavior and noted inability to walk. Pt was d/c from our facility on 09/17 and returned d/t above mentioned reasons. Pt is eating an estimated 100% of meals Per Meal/Nutrition Activity Record . Dietary is currently providing an estimated 2300 kcals and 120 gm Pro to meet 100+% kcal and 100+% Pro needs . Visited pt after lunch once finished with lunch. She stated the food was good and she was full. She asked for a nurse as she felt SOB. I grabbed the MECHANICAL SYSTEMS ENGINEER to relay the message as the nurse was on break. Anthropometrics HT: 57 WT: 216 LB (98.18 kg) ABW: 155 LB (70.57 kg) BMI: 33.81 (Obese) GI/ Skin Integrity GI: WNL, Soft, Round, Non- tender BM: 09/24 x1 I/O: 1240/Not Noted Skin: WNL, Intact Oniel: 20 Diet Order: Regular Estimated Energy Needs: (Obese , ABW) 8759-1665 kcals (20-25 kcals/ kg) 60-70g Pro (0.8-1.0 g/kg) 1026-1408 ml (25-30 ml/kg) Current Diet Order/ Nutrition Support Regular Pertinent Medications Maalox (PRN), Albuterol (PRN), Lipitor, Oscal with vitamin D , MOM (PRN), Theragran, Protonix Pertinent Labs No pertinent labs/ labs charted Nutritional Hx/Data Height 1.7 m Height (Calculated Centimeters) 170.2 Current Weight (lbs) 97.976 kg Weight (Calculated Kilograms) 98.0 Weight (Calculated Grams) 77646.0 [place] Body Weight 135 LB (61.36 kg) % [place] Body Weight 160 Body Mass Index (BMI) 33.8 Weight Status Obese GI Symptoms GI Symptoms None Last BM 09/24 x1 Skin Integrity/Comment: Skin: WNL, Intact Oniel: 20 Current %PO Good (75-100%) Estimated Nutritional Goals BEE in Kcals: Adj wt of IBW Calories/Kcals/Kg 20-25 Kcals Calculated 0366-5005 Protein: Adj wt of IBW Protein g/k.8-1.0 Protein Calculated 60-70 Fluid: ml 2190-6533 ml (25-30 ml/kg) Nutritional Problem No current Nutrition Prob Problem No nutrition diagnosis at this time. Etiology N/A Signs/Symptoms: N/A Malnutrition Related to Morbid Obesity Malnutrition related to morbid obesity No Intervention/Recommendation Comments Continue Regular diet as tolerated. Expected Outcomes/Goals Expected Outcomes/Goals 1. PO intake to continue to meet >75% of estimated nutritional needs. 2. Monitor PO intake, wt, nutrition related labs, and skin integrity. 3. F/U as low risk in 7-10 days, 10/01-10/04
[2019-10-09] MEDS: Albuterol/Ipratropium Neb 3 ML AERS HHN PRN (21:39)
[2019-10-10] MEDS: Albuterol/Ipratropium Neb 3 ML AERS HHN SCH ×4 (01:31→18:40)
[2019-10-10] MEDS: Albuterol/Ipratropium Neb 3 ML AERS HHN PRN (05:04)
[2019-10-10] MEDS: Calcium Carb/Vit D 500 mg/200 U Tab PO SCH ×2 (08:24→17:24)
[2019-10-10] MEDS: Atorvastatin Calcium 10 MG TAB PO SCH (08:24)
[2019-10-10] MEDS: Multivitamin Tab PO SCH (08:25)
[2019-10-10] MEDS: Pantoprazole 40 mg EC Tab PO SCH (08:25)
[2019-10-10] MEDS: Lactobacillus Rhamnosus GG 15 Billion CFU CAP.SPRINK PO SCH (08:25)
--- NOTE | 2019-10-10 22:50 | Progress Notes ---
DATE: 10/10/2019 SUBJECTIVE: The patient in the hospital, stating she wants to leave, concerns remains sabotage for discharge. I am trying to discharge her today. She is likely at her baseline, calmer, no outburst. No agitation. No SI. No HI. MEDICATIONS: Reviewed. PLAN: We will attempt to discharge today. JOB# [id number]
--- NOTE | 2019-10-10 23:35 | Discharge Summary ---
DATE OF DISCHARGE: 10/10/2019 ADDENDUM After speaking with staff further, it seems the patient is at her baseline. She is not aggressive physically, just verbally, curses at staff, likely personality related. She has been more redirectable, certainly calmer today. The patient is to be discharged today. She is awake and engaged, no SI, no HI, and no active psychotic symptoms. JOB# [id number]
[2019-10-11] MEDS: Albuterol/Ipratropium Neb 3 ML AERS HHN SCH ×4 (01:03→18:09)
[2019-10-11] MEDS: Albuterol/Ipratropium Neb 3 ML AERS HHN PRN ×2 (05:41→20:56)
[2019-10-11] MEDS: Calcium Carb/Vit D 500 mg/200 U Tab PO SCH ×2 (08:27→17:02)
[2019-10-11] MEDS: Pantoprazole 40 mg EC Tab PO SCH (08:27)
[2019-10-11] MEDS: Atorvastatin Calcium 10 MG TAB PO SCH (08:27)
[2019-10-11] MEDS: Multivitamin Tab PO SCH (08:27)
[2019-10-11] MEDS: Lactobacillus Rhamnosus GG 15 Billion CFU CAP.SPRINK PO SCH (08:27)
--- NOTE | 2019-10-11 15:35 | Progress Notes ---
DATE: SUBJECTIVE: The patient seen, chart reviewed, discussed with staff. The patient remains odd, unpredictable, bizarre ideations, manipulative, concerns she may sabotage her discharge. No behavioral outburst, likely approaching her baseline. We are trying to figure out where she is going to go. She will be assessed the next Monday. PLAN: We will continue to monitor. Medications were noted. [facility]# [id number]
[2019-10-12] MEDS: Albuterol/Ipratropium Neb 3 ML AERS HHN SCH ×4 (00:29→18:07)
[2019-10-12] MEDS: Lactobacillus Rhamnosus GG 15 Billion CFU CAP.SPRINK PO SCH (09:09)
[2019-10-12] MEDS: Calcium Carb/Vit D 500 mg/200 U Tab PO SCH ×2 (09:09→16:45)
[2019-10-12] MEDS: Atorvastatin Calcium 10 MG TAB PO SCH (09:09)
[2019-10-12] MEDS: Multivitamin Tab PO SCH (09:09)
[2019-10-12] MEDS: Pantoprazole 40 mg EC Tab PO SCH (09:09)
[2019-10-12] MEDS: Albuterol/Ipratropium Neb 3 ML AERS HHN PRN (09:10)
--- NOTE | 2019-10-12 14:03 | Progress Notes ---
DATE: 10/12/2019 SUBJECTIVE: The patient is currently in the hospital, bizarre, "____ Josselin Meade," not making much sense on exam, asking when she is leaving, very manipulative when it comes to discharge, more anxious when it comes to discharge, at the same time asking and telling me she wants to be discharged. Concerns, she will attempt to sabotage her discharge. The patient really odd, not making much sense. Concerns for delusions. PLAN: We will continue to monitor. We are pending a safe disposition plan. Recent dose increase of medications, seems to be tolerating. JOB# [id number]
[2019-10-13] MEDS: Albuterol/Ipratropium Neb 3 ML AERS HHN SCH ×4 (00:56→18:23)
[2019-10-13] MEDS: Multivitamin Tab PO SCH (08:57)
[2019-10-13] MEDS: Atorvastatin Calcium 10 MG TAB PO SCH (08:57)
[2019-10-13] MEDS: Calcium Carb/Vit D 500 mg/200 U Tab PO SCH ×2 (08:57→17:21)
[2019-10-13] MEDS: Lactobacillus Rhamnosus GG 15 Billion CFU CAP.SPRINK PO SCH (08:57)
[2019-10-13] MEDS: Pantoprazole 40 mg EC Tab PO SCH (08:57)
--- NOTE | 2019-10-14 01:17 | Progress Notes ---
DATE: SUBJECTIVE: The patient was seen, chart reviewed, and discussed with staff. The patient continues to be quite disorganized, confused, very fixated on being discharged, seems to be quite disorganized and unable to answer questions in a coherent manner. PLAN: The patient continues to be quite disorganized and disoriented, so that she will require inpatient care center and treatment. We will monitor the patient on a daily basis for response to medications and titrate meds as needed. JOB# [id number]
[2019-10-14] MEDS: Albuterol/Ipratropium Neb 3 ML AERS HHN SCH ×4 (01:31→19:54)
[2019-10-14] MEDS: Albuterol/Ipratropium Neb 3 ML AERS HHN PRN ×3 (03:30→23:22)
[2019-10-14] MEDS: Pantoprazole 40 mg EC Tab PO SCH (08:41)
[2019-10-14] MEDS: Calcium Carb/Vit D 500 mg/200 U Tab PO SCH ×2 (08:41→16:17)
[2019-10-14] MEDS: Lactobacillus Rhamnosus GG 15 Billion CFU CAP.SPRINK PO SCH (08:41)
[2019-10-14] MEDS: Multivitamin Tab PO SCH (08:42)
[2019-10-14] MEDS: Atorvastatin Calcium 10 MG TAB PO SCH (08:42)
--- NOTE | 2019-10-14 19:23 | Progress Notes ---
DATE: 10/14/2019 SUBJECTIVE: Case was discussed with staff of the patient, reviewed records. She is a well-known case to me as I have seen her before covering for Dr. Bennett. The patient continues to be disorganized, confused, fixated on discharge. Continues to be unable to make safe plan for self-care. No side effects with the medication, no sedation, no nausea, no extrapyramidal symptoms. She is on Lexapro and Seroquel. We will continue outpatient group therapy, milieu therapy, and adjust her medication as needed. JOB# [id number]
[2019-10-15] MEDS: Albuterol/Ipratropium Neb 3 ML AERS HHN SCH ×4 (01:49→18:00)
[2019-10-15] MEDS: Calcium Carb/Vit D 500 mg/200 U Tab PO SCH ×2 (08:58→17:45)
[2019-10-15] MEDS: Multivitamin Tab PO SCH (08:58)
[2019-10-15] MEDS: Atorvastatin Calcium 10 MG TAB PO SCH (08:58)
[2019-10-15] MEDS: Pantoprazole 40 mg EC Tab PO SCH (08:58)
[2019-10-15] MEDS: Lactobacillus Rhamnosus GG 15 Billion CFU CAP.SPRINK PO SCH (08:58)
[2019-10-15] MEDS: Albuterol/Ipratropium Neb 3 ML AERS HHN PRN (22:34)
--- NOTE | 2019-10-15 23:09 | Progress Notes ---
DATE: 10/15/2019 FOLLOWUP PROGRESS NOTE Case was discussed with staff of the patient, reviewed records. The patient continues to be internally preoccupied. Continues to be disorganized, confused, preoccupied with discharge. Continues to be unable to make safe plan for self-care, unpredictable, impulsive. No side effects of the medication, no sedation, no nausea, no extrapyramidal symptoms. I will continue to work with the patient in group therapy, milieu therapy, adjust the medication as needed. JOB# [id number]
[2019-10-16] MEDS: Albuterol/Ipratropium Neb 3 ML AERS HHN SCH ×4 (02:06→18:00)
[2019-10-16] MEDS: Albuterol/Ipratropium Neb 3 ML AERS HHN PRN ×3 (02:15→08:23)
[2019-10-16] MEDS: Atorvastatin Calcium 10 MG TAB PO SCH (08:23)
[2019-10-16] MEDS: Calcium Carb/Vit D 500 mg/200 U Tab PO SCH ×2 (08:24→16:29)
[2019-10-16] MEDS: Lactobacillus Rhamnosus GG 15 Billion CFU CAP.SPRINK PO SCH (08:24)
[2019-10-16] MEDS: Multivitamin Tab PO SCH (08:24)
[2019-10-16] MEDS: Pantoprazole 40 mg EC Tab PO SCH (08:24)
--- NOTE | 2019-10-16 22:49 | Progress Notes ---
DATE: 10/16/2019 Case was discussed with staff of the patient, reviewed records. The patient continues to be confused, unpredictable, impulsive, needing redirection. Continues to have poor insight, unable to make safe plan for self-care. Working on placement for this patient as well. No side effects from the medication, no sedation, no nausea, no extrapyramidal symptoms. We will continue outpatient group therapy, milieu therapy, and adjust the medications as needed. JOB# [id number]
[2019-10-17] MEDS: Albuterol/Ipratropium Neb 3 ML AERS HHN SCH ×4 (02:00→18:46)
[2019-10-17] MEDS ORDERED: chlorproMAZINE 25 mg/mL 2mL Amp IM ONE (06:30)
[2019-10-17] MEDS: Calcium Carb/Vit D 500 mg/200 U Tab PO SCH ×2 (08:54→16:33)
[2019-10-17] MEDS: Multivitamin Tab PO SCH (08:54)
[2019-10-17] MEDS: Pantoprazole 40 mg EC Tab PO SCH (08:54)
[2019-10-17] MEDS: Atorvastatin Calcium 10 MG TAB PO SCH (08:55)
[2019-10-17] MEDS: Lactobacillus Rhamnosus GG 15 Billion CFU CAP.SPRINK PO SCH (08:55)
[2019-10-17] MEDS: Albuterol/Ipratropium Neb 3 ML AERS HHN PRN ×3 (10:39→20:03)
--- NOTE | 2019-10-17 18:41 | Progress Notes ---
DATE: 10/17/2019 SUBJECTIVE: Case was discussed with staff of the patient, reviewed records. The patient continues to be internally preoccupied. Continues to be easily agitated. She is sleeping better, eating better, consider a history of confusion, unable to make safe plan for self-care. No side effects with the medication, no sedation, no nausea, no extrapyramidal symptoms. We will continue outpatient group therapy, milieu therapy, and adjust medication as needed. JOB# [id number]
--- NOTE | 2019-10-17 21:15 | Progress Notes ---
DATE: 10/17/2019 SUBJECTIVE: The patient seen and examined. The patient is lying in the bed. The patient denies any chest pain, shortness of breath, palpitation, dizziness, nausea, vomiting, headache, seizure. PHYSICAL EXAMINATION: VITAL SIGNS: Temperature 98.6, pulse 74, respiratory rate 18, blood pressure 136/80. HEENT: No facial asymmetry. Poor dentition noted. NECK: Supple, no JVD, no lymphadenopathy or thyromegaly. HEART: Both heart sounds are regular. CHEST AND LUNGS: Equal in expansion, no expiratory wheezing. ABDOMEN: Soft. Bowel sounds present. No palpable mass. EXTREMITIES: No edema, no cyanosis. Peripheral +1. No calf tenderness. NEUROLOGIC: Nonfocal. Available medications, admission record reviewed. CLINICAL IMPRESSION: 1. Hypertension. 2. Hyperlipidemia. 3. Chronic kidney disease stage 3. 4. Degenerative joint disease. 5. Psychotic disorder. 6. Anemia of chronic kidney disease. PLAN: 1. Low sodium diet. 2. Antihypertensive medicine. 3. Statin. 4. Low cholesterol diet. 5. Psych medication. 6. Psych followup. 7. General nursing care. 8. Nutritional support. 9. Follow lab. 10. Care plan reviewed and discussed with staff. JOB# [id number]
[2019-10-18] MEDS: Albuterol/Ipratropium Neb 3 ML AERS HHN SCH ×3 (00:19→12:00)
[2019-10-18] MEDS: Albuterol/Ipratropium Neb 3 ML AERS HHN PRN (04:21)
[2019-10-18] MEDS: Calcium Carb/Vit D 500 mg/200 U Tab PO SCH ×2 (09:28→16:59)
[2019-10-18] MEDS: Atorvastatin Calcium 10 MG TAB PO SCH (09:28)
[2019-10-18] MEDS: Lactobacillus Rhamnosus GG 15 Billion CFU CAP.SPRINK PO SCH (09:29)
[2019-10-18] MEDS: Multivitamin Tab PO SCH (09:29)
[2019-10-18] MEDS: Pantoprazole 40 mg EC Tab PO SCH (09:29)
--- NOTE | 2019-10-19 00:12 | Progress Notes ---
DATE: SUBJECTIVE: Chart was reviewed and the patient interviewed. Also discussed the patient's condition with the staff and reviewed records and labs. The patient continued to be delusional and paranoid and has grandiose delusions, thinking that she owns the hospital. The patient also is still uncooperative in regard to getting placement and it seemed that the patient is manipulative and is having excuses in order to extent her hospital stay. At the same time, staff unable to give any exact placement information and has been having difficulty finding a place for the patient. At the same time, the patient has been taking her medications with no side effects. ASSESSMENT: The patients is still agitated and psychotic, and have difficulty placing her. TREATMENT PLAN: We will increase Seroquel to 100 mg twice a day and 400 mg at bedtime and also, we will continue Lexapro and trazodone same dose and continue to follow up closely. JOB# [id number]
[2019-10-19] MEDS: Albuterol/Ipratropium Neb 3 ML AERS HHN SCH ×6 (00:42→21:49)
[2019-10-19] MEDS: Lactobacillus Rhamnosus GG 15 Billion CFU CAP.SPRINK PO SCH (08:27)
[2019-10-19] MEDS: Pantoprazole 40 mg EC Tab PO SCH (08:27)
[2019-10-19] MEDS: Multivitamin Tab PO SCH (08:28)
[2019-10-19] MEDS: Atorvastatin Calcium 10 MG TAB PO SCH (08:28)
[2019-10-19] MEDS: Calcium Carb/Vit D 500 mg/200 U Tab PO SCH ×2 (08:28→17:30)
[2019-10-19] MEDS: Albuterol/Ipratropium Neb 3 ML AERS HHN PRN (17:57)
--- NOTE | 2019-10-19 20:42 | Progress Notes ---
DATE: 10/19/2019 SUBJECTIVE: The patient was seen and evaluated. The patient's chart reviewed. Covering for Dr. Bennett. Continues to endorse grandiose delusions. She owns the hospital, at times uncooperative with interview. MENTAL STATUS EXAMINATION: Disorganized, grandiose. ASSESSMENT AND PLAN: We will continue with the recent increase of Seroquel 100 mg p.o. b.i.d., 400 at nighttime; Lexapro and trazodone to be continued. Medication reconciliation reviewed. JOB# [id number]
[2019-10-20] MEDS: Albuterol/Ipratropium Neb 3 ML AERS HHN SCH ×4 (01:10→18:43)
[2019-10-20] MEDS: Pantoprazole 40 mg EC Tab PO SCH (08:49)
[2019-10-20] MEDS: Lactobacillus Rhamnosus GG 15 Billion CFU CAP.SPRINK PO SCH (08:49)
[2019-10-20] MEDS: Calcium Carb/Vit D 500 mg/200 U Tab PO SCH ×2 (08:49→17:33)
[2019-10-20] MEDS: Multivitamin Tab PO SCH (08:49)
[2019-10-20] MEDS: Atorvastatin Calcium 10 MG TAB PO SCH (08:49)
--- NOTE | 2019-10-20 11:44 | Progress Notes ---
DATE: 10/20/2019 SUBJECTIVE: The patient was seen and evaluated. The patient's chart reviewed. Covering for Dr. Bennett. [id number] evaluation. Angry, irritable that she cannot get discharged since she owns the hospital. ASSESSMENT AND PLAN: Due to the patient's too grandiose state, we will continue with the recent increase of Seroquel to target the patient's ongoing delusions. [facility]# [id number]
[2019-10-21] MEDS: Albuterol/Ipratropium Neb 3 ML AERS HHN SCH ×4 (01:00→19:30)
--- NOTE | 2019-10-21 08:17 | Progress Notes ---
DATE: 10/21/2019 SUBJECTIVE: Chart was reviewed and the patient interviewed. Also, discussed the patient's condition with the staff and reviewed records and labs. The patient is still anxious and is still manipulative in regard to her discharge plans. She also is still easily agitated and she is still suspicious and paranoid. She also needs lots of redirections. Otherwise, the patient is compliant with her medications. She also seems to be still slightly less paranoid, less delusional. She is not very helpful in regard to discharge plans. ASSESSMENT: The patient still needs placement and she is still manipulative. TREATMENT PLAN: Continue current medications and continue to work on her discharge plans and on placement issue. JOB# [id number]
[2019-10-21] MEDS: Lactobacillus Rhamnosus GG 15 Billion CFU CAP.SPRINK PO SCH (09:37)
[2019-10-21] MEDS: Multivitamin Tab PO SCH (09:37)
[2019-10-21] MEDS: Calcium Carb/Vit D 500 mg/200 U Tab PO SCH ×2 (09:37→17:27)
[2019-10-21] MEDS: Atorvastatin Calcium 10 MG TAB PO SCH (09:37)
[2019-10-21] MEDS: Pantoprazole 40 mg EC Tab PO SCH (09:37)
--- NOTE | 2019-10-21 20:49 | Progress Notes ---
DATE: 10/21/2019 SUBJECTIVE: The patient is seen and examined. The patient is lying in the bed. The patient denies any chest pain, short of breath, palpitation, dizziness, nausea or vomiting. PHYSICAL EXAMINATION: VITAL SIGNS: Temperature 98.6, pulse 74, respiratory rate 18, blood pressure 130/70. HEENT: Poor dentition. NECK: Supple, no JVD. HEART: Regular. CHEST AND LUNGS: Equal in expansion, no expiratory wheezing. ABDOMEN: Soft. EXTREMITIES: No edema. CLINICAL IMPRESSIONS: 1. Hyperlipidemia. 2. Hypertension. 3. Chronic kidney disease stage 3. 4. Degenerative joint disease. 5. Psychotic disorder. 6. Osteoporosis. 7. Gastroesophageal reflux disease. PLAN: 1. Continue statin. 2. Monitor blood pressure. 3. Psychotic management deferred to psychiatrist. 4. Protonix. 5. Antireflux measures. 6. Nutritional support. 7. Care plan reviewed and discussed with staff. JOB# [id number]
[2019-10-22] MEDS: Albuterol/Ipratropium Neb 3 ML AERS HHN SCH ×4 (01:10→18:05)
[2019-10-22] MEDS: Pantoprazole 40 mg EC Tab PO SCH (08:50)
[2019-10-22] MEDS: Calcium Carb/Vit D 500 mg/200 U Tab PO SCH ×2 (08:50→16:24)
[2019-10-22] MEDS: Multivitamin Tab PO SCH (08:50)
[2019-10-22] MEDS: Atorvastatin Calcium 10 MG TAB PO SCH (08:50)
[2019-10-22] MEDS: Lactobacillus Rhamnosus GG 15 Billion CFU CAP.SPRINK PO SCH (08:50)
--- NOTE | 2019-10-22 21:58 | Progress Notes ---
DATE: 10/22/2019 SUBJECTIVE: Chart was reviewed and the patient interviewed. Also discussed the patient's condition with the staff and reviewed records and labs. The patient is still anxious and is still suspicious and paranoid. The patient also is still manipulative as far as her discharge plans and I am not getting much help from social media analyst in regard to placement. The patient told me an address today and I elected for the social media analyst to investigate if the patient can go to this address or not. At the same time, the patient still has episodes of irritability and anxiety and needs close monitoring. ASSESSMENT: The patient still needs placement, but also is still anxious and paranoid. TREATMENT PLAN: Continue monitoring behavior and medications and continue working with housing case manager in regard to discharge plans. JOB# [id number]
[2019-10-23] MEDS: Albuterol/Ipratropium Neb 3 ML AERS HHN SCH ×4 (01:00→19:24)
[2019-10-23] MEDS: Calcium Carb/Vit D 500 mg/200 U Tab PO SCH ×2 (08:53→16:40)
[2019-10-23] MEDS: Multivitamin Tab PO SCH (08:54)
[2019-10-23] MEDS: Lactobacillus Rhamnosus GG 15 Billion CFU CAP.SPRINK PO SCH (08:54)
[2019-10-23] MEDS: Pantoprazole 40 mg EC Tab PO SCH (08:54)
[2019-10-23] MEDS: Atorvastatin Calcium 10 MG TAB PO SCH (08:57)
--- NOTE | 2019-10-23 21:30 | Progress Notes ---
DATE: SUBJECTIVE: Chart was reviewed and the patient interviewed. Also discussed the patient's condition with the staff and reviewed records and labs. The patient is still restless and is still continuously asking to leave, but at the same time uncooperative in regard to discharge plans and does not provide any exact information in regards to where can she go to live where she was living prior to her admission. Also, assistant case manager not also of great help because no communication and have no idea where the patient can go in spite of recommending some places. On the other hand, the patient seems to be less paranoid and she is compliant with taking her medications with no side effects of medications. ASSESSMENT: The patient is less anxious and less depressed and not psychotic. TREATMENT PLAN: Continue current medications and current treatment and continue to work on discharge plans and placement issue. JOB# [id number]
[2019-10-24] MEDS: Albuterol/Ipratropium Neb 3 ML AERS HHN SCH ×4 (01:48→18:01)
[2019-10-24] MEDS: Calcium Carb/Vit D 500 mg/200 U Tab PO SCH ×2 (08:20→16:55)
[2019-10-24] MEDS: Pantoprazole 40 mg EC Tab PO SCH (08:20)
[2019-10-24] MEDS: Atorvastatin Calcium 10 MG TAB PO SCH (08:20)
[2019-10-24] MEDS: Multivitamin Tab PO SCH (08:20)
[2019-10-24] MEDS: Lactobacillus Rhamnosus GG 15 Billion CFU CAP.SPRINK PO SCH (08:20)
--- NOTE | 2019-10-24 22:10 | Progress Notes ---
DATE: 10/24/2019 SUBJECTIVE: Chart was reviewed and the patient interviewed. Also discussed the patient's condition with the staff and reviewed records and labs. The patient is calm and is less paranoid. The patient also is not exhibiting any behavioral problems. She is compliant with taking her medications. Still no place to live and still waiting for caser in to help with discharge plans and placement issue. ASSESSMENT: The patient still needs placement and is still depressed. TREATMENT PLAN: Continue to monitor behavior and condition and continue to work on placement issue and on discharge plans. JOB# [id number]
[2019-10-25] MEDS: Albuterol/Ipratropium Neb 3 ML AERS HHN SCH ×4 (01:01→19:08)
[2019-10-25] MEDS: Albuterol/Ipratropium Neb 3 ML AERS HHN PRN (01:54)
[2019-10-25] MEDS: Calcium Carb/Vit D 500 mg/200 U Tab PO SCH ×2 (08:16→16:41)
[2019-10-25] MEDS: Pantoprazole 40 mg EC Tab PO SCH (08:16)
[2019-10-25] MEDS: Lactobacillus Rhamnosus GG 15 Billion CFU CAP.SPRINK PO SCH (08:16)
[2019-10-25] MEDS: Atorvastatin Calcium 10 MG TAB PO SCH (08:16)
[2019-10-25] MEDS: Multivitamin Tab PO SCH (08:17)
[2019-10-26] MEDS: Albuterol/Ipratropium Neb 3 ML AERS HHN SCH ×4 (00:19→18:12)
[2019-10-26] MEDS: Albuterol/Ipratropium Neb 3 ML AERS HHN PRN (03:30)
[2019-10-26] MEDS: Calcium Carb/Vit D 500 mg/200 U Tab PO SCH ×2 (09:02→16:57)
[2019-10-26] MEDS: Atorvastatin Calcium 10 MG TAB PO SCH (09:02)
[2019-10-26] MEDS: Multivitamin Tab PO SCH (09:02)
[2019-10-26] MEDS: Pantoprazole 40 mg EC Tab PO SCH (09:03)
[2019-10-26] MEDS: Lactobacillus Rhamnosus GG 15 Billion CFU CAP.SPRINK PO SCH (09:03)
--- NOTE | 2019-10-26 20:24 | Progress Notes ---
DATE: 10/26/2019 Case was discussed with staff of the patient, reviewed records. The patient is a well-known case to me. I have seen her before covering for Dr. Bennett. The patient continues to show progress. She is less paranoid, calmer, no behavioral problem. Compliant with the medication with no side effects. Still working on placement. She continues to have a history of depression, continues to have episodes of irritability, agitation. No side effects with the medication, no sedation, no nausea. She is on Lexapro 10 mg a day and Seroquel 400 mg at bedtime and 100 mg twice a day. No extrapyramidal symptoms. We will continue outpatient group therapy, milieu therapy, adjust medication as needed. JOB# [id number]
[2019-10-27] MEDS: Albuterol/Ipratropium Neb 3 ML AERS HHN SCH ×4 (01:55→18:03)
[2019-10-27] MEDS: Albuterol/Ipratropium Neb 3 ML AERS HHN PRN ×2 (05:06→08:46)
[2019-10-27] MEDS: Pantoprazole 40 mg EC Tab PO SCH (08:46)
[2019-10-27] MEDS: Lactobacillus Rhamnosus GG 15 Billion CFU CAP.SPRINK PO SCH (08:46)
[2019-10-27] MEDS: Calcium Carb/Vit D 500 mg/200 U Tab PO SCH ×2 (08:46→16:40)
[2019-10-27] MEDS: Atorvastatin Calcium 10 MG TAB PO SCH (08:46)
[2019-10-27] MEDS: Multivitamin Tab PO SCH (08:46)
--- NOTE | 2019-10-27 13:59 | Progress Notes ---
DATE: 10/27/2019 Case was discussed with staff of the patient, reviewed records. The patient is less paranoid, calmer in general, she is compliant with the medication, no side effects. Staff is working on placement. Continues to have episodes of depression, irritability, agitation, but redirectable and no side effects with the medication, no sedation, no nausea, no extrapyramidal symptoms. We will continue to work with the patient in group therapy, milieu therapy, and adjust the medications as needed. JOB# [id number]
[2019-10-28] MEDS: Albuterol/Ipratropium Neb 3 ML AERS HHN SCH ×4 (02:00→20:44)
[2019-10-28] MEDS: Albuterol/Ipratropium Neb 3 ML AERS HHN PRN ×2 (05:06→23:55)
--- NOTE | 2019-10-28 08:26 | Progress Notes ---
DATE: 10/24/2019 PSYCHIATRIC PROGRESS NOTE Chart is reviewed and the patient is interviewed. Also, I discussed the patient's condition with the staff and I reviewed the records and the labs. The patient is still anxious and depressed. The patient also still has no safe plan for a discharge and is not providing any specific place for her discharge. On the other hand, the patient is compliant with taking her medications with no side effects of medication. ASSESSMENT: The patient still has no place to live and is still considered ____. TREATMENT PLAN: We will continue to monitor behavior and condition. Also, we will continue to work on her placement issue. JOB# [id number]
--- NOTE | 2019-10-28 09:24 | Progress Notes ---
DATE: SUBJECTIVE: Chart was reviewed and the patient interviewed. Also discussed the patient's condition with the staff and reviewed records and labs. The patient is still suspicious and paranoid. She also is still manipulative and demanding. She is asking me about "I need placement in [facility]." manager requirements is still working on discharge plans and placement issue. At the same time, the patient is compliant with taking Seroquel and Lexapro and trazodone with no side effects. ASSESSMENT: The patient still needs placement. TREATMENT PLAN: Continue current medications and continue to work on discharge plans and placement issue. JOB# [id number]
[2019-10-28] MEDS: Lactobacillus Rhamnosus GG 15 Billion CFU CAP.SPRINK PO SCH (09:30)
[2019-10-28] MEDS: Atorvastatin Calcium 10 MG TAB PO SCH (09:30)
[2019-10-28] MEDS: Calcium Carb/Vit D 500 mg/200 U Tab PO SCH ×2 (09:30→16:58)
[2019-10-28] MEDS: Multivitamin Tab PO SCH (09:30)
[2019-10-28] MEDS: Pantoprazole 40 mg EC Tab PO SCH (09:30)
[2019-10-29] MEDS: Albuterol/Ipratropium Neb 3 ML AERS HHN SCH ×2 (01:32→06:25)
--- NOTE | 2019-10-29 07:04 | Progress Notes ---
DATE: PSYCHIATRIC PROGRESS NOTE SUBJECTIVE: Chart was reviewed and the patient interviewed. Also discussed the patient's condition with the staff and reviewed records and labs. The patient is still anxious and is still in irritable mood. The patient also is still demanding and is still manipulative and at times is verbally abusive to staff. The patient also is still suspicious and is still paranoid. Otherwise, the patient is compliant with taking medications with no side effects of medications. ASSESSMENT: The patient is still psychotic and is still in irritable mood and needs placement. TREATMENT PLAN: Continue to monitor her behavior. Also, continue to work on her discharge plans and placement issue and continue to follow up closely. JOB# [id number]
[2019-10-29] MEDS: Multivitamin Tab PO SCH (08:22)
[2019-10-29] MEDS: Calcium Carb/Vit D 500 mg/200 U Tab PO SCH ×2 (08:22→16:47)
[2019-10-29] MEDS: Pantoprazole 40 mg EC Tab PO SCH (08:23)
[2019-10-29] MEDS: Atorvastatin Calcium 10 MG TAB PO SCH (08:23)
[2019-10-29] MEDS: Lactobacillus Rhamnosus GG 15 Billion CFU CAP.SPRINK PO SCH (08:23)
[2019-10-29] MEDS: Albuterol/Ipratropium Neb 3 ML AERS HHN PRN ×3 (13:02→22:14)
--- NOTE | 2019-10-29 16:09 | Progress Notes ---
DATE: 10/29/2019 SUBJECTIVE: The patient seen and examined. The patient asked me to talk to her and she stated that she wants to go home. The patient currently denies any chest pain, shortness of breath, palpitation, dizziness, nausea, or vomiting. PHYSICAL EXAMINATION: VITAL SIGNS: Temperature 97.7, pulse is 90, respiratory rate 18, blood pressure 130/80. HEENT: No facial asymmetry. NECK: Supple, no JVD. HEART: Regular. CHEST AND LUNGS: Equal in expansion, no expiratory wheezing. ABDOMEN: Soft. No guarding or rigidity. Bowel sounds present. No palpable mass. EXTREMITIES: No edema. NEUROLOGIC: Alert, awake, follows command. CLINICAL IMPRESSION: 1. Hypertension. 2. Hyperlipidemia. 3. Degenerative joint disease. 4. Depression. 5. Psychotic disorder. 6. Obesity. 7. History of asthma. PLAN: 1. Discontinue breathing treatment for now considering patient's lungs are clear and use only as needed basis. Continue to provide statin. 2. Monitor blood pressure. 3. General nursing care. 4. Fall precaution. 5. Cerebrovascular accident prophylaxis. 6. Follow lab. 7. We will follow this patient during the stay on as needed basis. Care plan has been reviewed and discussed with staff. JOB# [id number]
[2019-10-30] MEDS: Albuterol/Ipratropium Neb 3 ML AERS HHN PRN (03:22)
[2019-10-30] MEDS: Multivitamin Tab PO SCH (08:24)
[2019-10-30] MEDS: Calcium Carb/Vit D 500 mg/200 U Tab PO SCH ×2 (08:24→16:16)
[2019-10-30] MEDS: Lactobacillus Rhamnosus GG 15 Billion CFU CAP.SPRINK PO SCH (08:24)
[2019-10-30] MEDS: Pantoprazole 40 mg EC Tab PO SCH (08:25)
[2019-10-30] MEDS: Atorvastatin Calcium 10 MG TAB PO SCH (08:25)
--- NOTE | 2019-10-30 18:22 | Progress Notes ---
DATE: 10/30/2019 SUBJECTIVE: The patient seen and examined. The patient is lying in the bed. The patient has aggressive behavior at time. PHYSICAL EXAMINATION: VITAL SIGNS: Temperature 97.1, pulse 70, respiratory rate 18, and blood pressure 148/90. HEENT: Poor dentition. NECK: Supple, no JVD. HEART: Regular. LUNGS: Clear to auscultate. ABDOMEN: Soft. Bowel sounds present. No palpable masses. EXTREMITIES: No edema. CLINICAL IMPRESSION: 1. Hypertension. 2. History of asthma. 3. Degenerative joint disease. 4. Psychotic disorder. 5. Chronic kidney disease. 6. Obesity. 7. High risk for fall. 8. Osteoarthritis of knee. PLAN: 1. Psychiatric medication management deferred to psychiatrist. 2. P.r.n. inhalation therapy. 3. Follow on lab. 4. General nursing care. 5. Dieting. 6. Monitor blood pressure. 7. Care plan reviewed and discussed with staff. JOB# [id number]
--- NOTE | 2019-10-30 23:02 | Discharge Summary ---
DATE OF DISCHARGE: 10/30/2019 AGE: 63. SEX: Female. PHYSICIAN: Dr. Bennett. FINAL DIAGNOSIS AND PRIMARY DIAGNOSIS: Bipolar disorder, depressed episode, severe, with psychotic features. TREATMENT PLAN: ____. REASON FOR HOSPITALIZATION: The patient was admitted to the hospital because of increased depression and the patient was discharged from the previous hospitalization and plan to go to [facility]. When the patient arrived to [facility], she refused to leave and she was taken to [facility] where she was brought back to the hospital. HOSPITAL COURSE: The patient continued to be paranoid and depressed. The patient also was anxious. The patient also was feeling hopeless and helpless. The patient did not give any explanation for why she did not go to [facility] and she kept being uncooperative with staff in regard to discharge plans. Placement was an issue. At certain time, the patient was severely paranoid. She was also manipulative asking to go to [facility], but at the same time has no place to go. Also, at certain time, the patient was having grandiose delusions, saying that she has "a lot of money." She also was bargaining with myself in order to buy properties. At the end, [facility] accepted the patient and the patient was discharged there. Physical examination of the patient showed no major medical problems. Blood workup was basically within normal. AFTER DISCHARGE PLANS: The patient discharged from the hospital and went to [facility] with plans for follow her there. EXPECTED OUTCOME AFTER DISCHARGE: Guarded because of patient manipulation. MEDICATIONS: The patient continued to take trazodone, Seroquel, and Lexapro. JOB# [id number]
== END 2019-10-30 16:50 | DRG 885 ==
LOC: GERO 21:23
PROVIDERS: ADMIT Psychiatry & Neurology Psychiatry; ATTEND Psychiatry & Neurology Psychiatry
DX: F31.5 Bipolar disorder, current episode depressed, severe, with psychotic features (principal); N18.3 Chronic kidney disease, stage 3 (moderate); Z96.651 Presence of right artificial knee joint; J44.9 Chronic obstructive pulmonary disease, unspecified; I12.9 Hypertensive chronic kidney disease with stage 1 through stage 4 chronic kidney disease, or unspecified chronic kidney disease; F29 Unspecified psychosis not due to a substance or known physiological condition; M81.0 Age-related osteoporosis without current pathological fracture; E78.5 Hyperlipidemia, unspecified; K21.9 Gastro-esophageal reflux disease without esophagitis; E66.9 Obesity, unspecified; M17.10 Unilateral primary osteoarthritis, unspecified knee; D63.1 Anemia in chronic kidney disease; Z88.8 Allergy status to other drugs, medicaments and biological substances; Z59.0 Homelessness; Z83.3 Family history of diabetes mellitus; Z82.49 Family history of ischemic heart disease and other diseases of the circulatory system; Z78.0 Asymptomatic menopausal state; Z68.33 Body mass index [BMI] 33.0-33.9, adult
CPT/HCPCS: 83036-90; J3230; Z7610